=== PATIENT | male | born 1975 | race Caucasian/White ===

== ENCOUNTER → 2018-06-27 10:50 | Outpatient (CLI) | payer OTHER, SELFPAY ==
[2018-06-27 11:39] LABS: Cholesterol 117 mg/dL (200); Glucose 83 mg/dL (74-106); High Density Lipoprotein 44 mg/dL; Triglycerides 43 mg/dL; Very Low Density Lipoprotein 9 mg/dL (5-40)
== END ==
LOC: LABSPEC 10:51 → MTLAB 14:01
PROVIDERS: Family Provider Family Medicine; PCP Family Medicine; Referring Provider Family Medicine; Visit Provider Family Medicine
DX: Z13.220 Encounter for screening for lipoid disorders (principal)
CPT/HCPCS: 36415; 80061; 82947

== ENCOUNTER 2019-09-16 00:01 | Observation (INO) | payer OTHER, SELFPAY ==
[2019-09-16] VITALS (12 sets, daily range): BP systolic 109–161; BP diastolic 72–88; PULSE 65–124; RESP 12–17; TEMP 36.3–36.7; O2SAT 95–100; BMI 26.1; BMI 27.1
--- NOTE | 2019-09-16 00:21 | RAD_ITS ---
STUDY: X-RAY CHEST REASON FOR EXAM: Male, 44 years old. PALPITATIONS -- HX OF AFIB -- DENIES CP TECHNIQUE: Single AP portable view of the chest. COMPARISON: None. FINDINGS: The lungs are clear and expanded. There is no demonstrated pleural abnormality. Normal size heart. Normal mediastinum and erika. Normal visualized pulmonary arteries. Normal visualized aortic arch and descending thoracic aorta. Normal visualized thoracic spine. Normal visualized ribs, clavicles, and shoulders. There is no demonstrated abnormality of the visualized soft tissue structures of the upper abdomen. RAD/Chest 1 View (Portable) IMPRESSION: Normal x-ray examination of the chest. Electronically Signed: Nicki Blakely, at 1:05 EST Tel , Service support ,
--- NOTE | 2019-09-16 00:21 | EKG12_ITS ---
Test Reason : CP Blood Pressure : / mmHG Vent. Rate : 133 BPM Atrial Rate : 153 BPM P-R Int : 000 ms QRS Dur : 098 ms QT Int : 310 ms P-R-T Axes : 000 042 -15 degrees QTc Int : 461 ms Atrial fibrillation with rapid ventricular response Nonspecific ST and T wave abnormality Abnormal ECG Confirmed by JO ANN DE JESUS ([id number]), associate editor [employer]BAN CREWS ([id number]) on 09/18/2019 9:28:38 AM Referred By: OC Confirmed By:JO ANN DE JESUS
[2019-09-16 00:37] LABS: Absolute Lymphocyte Count 2.68 X10^3/uL (0.83-4.51); Absolute Neutrophil Count 3.7 X10^3/uL (2.0-7.7); Basophil# 0.05 X10^3/uL; Basophil% 0.7 % (0-1); Eosinophils% 1.4 % (0-5); Hematocrit 45.4 % (40-54); Lymphocyte # 2.68 X10^3/ul (4.0); Lymphocyte % 36.5 % (19-41); Mean Corp Hgb Conc 35.2 g/dL (32-36); Mean Corpuscular Hgb 31.9 pg (27.0-32.0); Mean Corpuscular Volume 90.6 fL (80-94); Mean Platelet Vol. 9.7 fl (6.2-12.0); Monocyte# 0.75 X10^3/uL; Monocyte% 10.2 % (0-10); NRBC Flagged by Analyzer 0 % (0-5); Neutrophil % 50.4 % (47-70); Platelet Count 215 K/mm3 (150-450); RBC Distribution Width CV 12.5 % (11.6-14.6); RBC Distribution Width SD 40.5 fl (35.1-43.9); Red Blood Count 5.01 M/mm3 (4.6-6.2); White Blood Count 7.3 K/mm3 (4.4-11.0)
[2019-09-16 00:44] LABS: Anion Gap 5 (5-15); BUN 18 mg/dL (7-18); BUN/Creat Ratio 12.8 RATIO (10-20); Calcium,Total 8.7 mg/dL (8.5-10.1); Chloride 107 mmol/L (98-107); Creatinine, Serum 1.41 mg/dL (0.70-1.30); EST Glomerular Filtration Rate 58 mL/min (>60); Est Glom Filt Rate - Afr Amer 70 mL/min (>60); Estimated Creatinine Clearance 66.86 ml/min; Glucose 103 mg/dL (74-106); Potassium 3.2 mmol/L (3.5-5.1); Sodium Level 141 mmol/L (136-145)
--- NOTE | 2019-09-16 00:49 | ED.DCSUM_ITS ---
History of Present Illness Chief Complaint: Palpitations Narrative: Patient is a 44-year-old male who presents with chief complaint of atrial fibrillation. He has had this twice previously. He believes he spontaneously converted with the first episode. He did undergo cardioversion with the second episode. He notes this was about 4 to 5 years ago and he is otherwise been doing well. He currently takes Paxil as his only medication for anxiety. He felt himself go into atrial fibrillation with heart racing and palpitations about an hour ago. No chest pain. No shortness of breath. No dizziness or lightheadedness. He is otherwise recently been well and denies any recent illness. Past Medical History - Allergies and Home Meds Allergies/Adverse Reactions: Allergies No Known Allergies Allergy (Verified 09/16/19 00:01) Primary Care Physician: Parveen Feng MD [Primary Care Provider] - Past Medical History: - - Anxiety, atrial fibrillation Surgical History: noncontributory Smoking Status: Never smoker Review of Systems All systems negative except as indicated General: Denies: Fever Eyes: Denies: Visual changes - bilaterally ENT: Denies: Bilateral ear pain Cardiovascular: Reports: Palpitations, Heart racing. Denies: Chest pain Respiratory: Denies: Dyspnea Gastrointestinal: Denies: Abdominal pain, Vomiting, Diarrhea Musculoskeletal: Denies: Myalgias Skin: Denies: Rash Neurological: Denies: Headache Psych: Reports: Anxiety Hematologic: Denies: Easy bruising Allergy: Denies: Uticaria Physical Exam Vital Signs/Narrative: Vital Signs Temp Pulse Resp BP Pulse Ox 09/16/19 00:21 99 09/16/19 00:03 97.4 F L 124 H 12 161/81 H 100 Inital Vital Signs reviewed: Yes General: Well nourished, Well developed Head: Normocephalic Eyes: EOMI ENT: Moist mucous membranes Neck: Supple Cardiovascular: Irregular, Tachycardia Respiratory: No distress, CTA bilaterally Abdomen: Soft, Nontender Extremities: Nontender, No edema Skin: Normal color Neurological: Alert Psychological: Normal affect Diagnostic/Tx/Re-eval Impressions Chest X-Ray 09/16/19 00:21 IMPRESSION: Normal x-ray examination of the chest. Electronically Signed: Nicki Blakely, at 1:05 EST Tel , Service support , 09/16/19 00:21 Chest 1 View (Portable) [RAD] Stat Laboratory Results 09/16/19 09/16/19 00:08 00:08 WBC 7.3 RBC 5.01 Hgb 16.0 Hct 45.4 MCV 90.6 MCH 31.9 MCHC 35.2 RDW Std Deviation 40.5 RDW Coeff of Harvey 12.5 Plt Count 215 MPV 9.7 Immature Gran % (Auto) 0.800 Neut % (Auto) 50.4 Lymph % (Auto) 36.5 Starr % (Auto) 10.2 H Eos % (Auto) 1.4 Baso % (Auto) 0.7 Absolute Neuts (auto) 3.7 Absolute Lymphs (auto) 2.68 Nucleated RBC % 0 Sodium 141 Potassium 3.2 L Chloride 107 Carbon Dioxide 29.0 Anion Gap 5 BUN 18 Creatinine 1.41 H Estim Creat Clear Calc 66.86 Est GFR (MDRD) Af Amer 70 Est GFR (MDRD) Non-Af 58 L BUN/Creatinine Ratio 12.8 Glucose 103 Calcium 8.7 Troponin I < 0.015 - Medical Decision Making EKG shows atrial fibrillation with RVR at a rate of 133, no acute ischemic changes. Laboratory studies as above unremarkable. Chest x-ray normal. Patient was given 5 mg of IV metoprolol and is rate controlled on reevaluation. Patient's chads 2 vascular score is 0. Therefore I deferred on anticoagulation. Given that the patient is young and otherwise healthy I believe cardioversion should be considered. However given that the patient is not anticoagulated would likely need an echo before this could be performed. Therefore patient will be discussed with the hospitalist and admitted. ED Disposition - Plan for ED Patient: Disposition: Acute Care Hospital [facility] Diagnosis: Atrial fibrillation with RVR Referrals: Parveen Feng MD [Primary Care Provider] -
[2019-09-16] MEDS: Metoprolol Tartrate 5 MG/5 ML Vial IV (01:10)
--- NOTE | 2019-09-16 01:25 | HP.PCM_ITS ---
Problem List (1) Atrial fibrillation with RVR Status: Acute (2) Paroxysmal a-fib Status: Chronic (3) Anxiety Status: Chronic History of Present Illness Date of Admission: 09/16/19 Chief Complaint: Palpitations The patient is a 44 year old M with a significant history of anxiety disorder; and paroxysmal A. fib who presents emergency department with palpitation that started about 2 hours before presentation. His symptoms started just after he woke up from bed. He denies any associated symptoms. At emergency department patient was found to be in A. fib with RVR with a ventricular rate in the 130s. He received 5 mg of metoprolol IV that made his ventricular rate controlled. Emergent department doctor reported discussed the case with cardiology who recommended that cardiology service can be consulted inpatient. Four to 5 years ago years ago patient was cardioverted for atrial fibrillation. About a year or two prior to cardioversion he had another episode of 'A. fib' for which he thinks he simultaneously converted to sinus rhythm. Past Medical History Past Medical History (Chronic Problems): Chronic Problems Paroxysmal a-fib (Chronic) Anxiety (Chronic) Allergies No Known Allergies Allergy (Verified 09/16/19 00:01) Home Medications: Ambulatory Orders Medication Instructions Recorded Paroxetine HCl [Paxil] 10 mg PO DAILY 09/16/19 Surgical History: appendectomy Psychiatric History: Anxiety Lives: Spouse/ Significant Other Smoking Status: Never smoker Alcohol: None - *Family History Maternal History Items: Diabetes, Heart Disease - His mother had triple CABG Paternal History Items: Heart Disease - His father had a heart attack Review of Systems Constitutional: Denies: Chills, Fever, Weight Change HEENT: Denies: Head Aches, Sinus Congestion, Sinus Drainage Cardiovascular: Reports: Palpitations. Denies: Chest Pain Respiratory: Denies: Cough, Shortness of breath at rest, Sputum production Gastrointestinal: Denies: Abdominal Pain, Nausea, Vomiting Genitourinary: Denies: Dysuria Musculoskeletal: Denies: Joint Pain, Joint Tenderness Skin: Denies: Rash, Wounds Neurological: Denies: Numbness, Tingling, Focal weakness Psychiatric: Reports: Anxiety. Denies: Depression, Homicidal Ideations, Suicidal Ideations Hematologic/ Lymphatic: Denies: Easy Bruising, Easy Bleeding VTE Information - Inpt Only VTE Present on Admission: No VTE Mechan Device Prophylaxis: SCD's VTE Pharm Prophylaxis ordered?: No Patient Problems: Active and Suspected Problems Atrial fibrillation with RVR (Acute) - Physical Exam Vitals/I&O's: Vital Signs Temp Pulse Resp BP Pulse Ox 97.4 F L 65 12 125/88 H 99 09/16/19 00:03 09/16/19 01:22 09/16/19 01:22 09/16/19 01:22 09/16/19 01:22 Oxygen Delivery Method Room Air Weight: 80.3 kg Body Mass Index (BMI) 26.1 General: Alert, Oriented x3, Cooperative HEENT: Atraumatic, PERRLA, EOMI, Normocephalic Neck: Supple, No JVD, Negative Carotid Bruits Lungs: Clear to auscultation, Normal air movement Cardiovascular: Normal S1, Normal S2, No murmurs, Irregular Rate Abdomen: Bowel Sounds Present, Soft, Non Tender Extremities: No edema, Capillary Refill Less than 3 Seconds Skin: No rashes, No breakdown Musculoskeletal: No Tenderness to Palpation of Joints or Extremities Neurological: Cranial nerves II-XII grossly intact Psych/Mental Status: Normal Affect, Appropriate Laboratory Results 09/16/19 00:08: WBC 7.3, RBC 5.01, Hgb 16.0, Hct 45.4, MCV 90.6, MCH 31.9, MCHC 35.2, RDW Std Deviation 40.5, RDW Coeff of Harvey 12.5, Plt Count 215, MPV 9.7, Immature Gran % (Auto) 0.800, Neut % (Auto) 50.4, Lymph % (Auto) 36.5, Stevens % (Auto) 10.2 H, Eos % (Auto) 1.4, Baso % (Auto) 0.7, Absolute Neuts (auto) 3.7, Absolute Lymphs (auto) 2.68, Nucleated RBC % 0 09/16/19 00:08: Sodium 141, Potassium 3.2 L, Chloride 107, Carbon Dioxide 29.0, Anion Gap 5, BUN 18, Creatinine 1.41 H, Estim Creat Clear Calc 66.86, Est GFR (MDRD) Af Amer 70, Est GFR (MDRD) Non-Af 58 L, BUN/Creatinine Ratio 12.8, Glucose 103, Calcium 8.7, Troponin I < 0.015 Assessment/Plan All Active Problems Atrial fibrillation with RVR (Acute) The patient is a 44 year old M with a significant history of anxiety disorder; a nd paroxysmal A. fib who presents emergency department with palpitation that started about 2 hours before presentation and found to be A. fib with RVR. A. fib with RVR Place on PCU on telemetry Initial troponin was negative. Serial cardiac enzymes [id number] = 0; no anticoagulation given. Metoprolol 5 mg IV every 1 hour as needed for heart rate more than 110 ordered. Patient found to have potassium 3.1 at the emergency department. Discussed emergent department doctor replace potassium and check magnesium. TSH ordered. Give additional potassium. Trend BMP. Impression of chest x-ray: No acute cardiopulmonary process. Chest x-ray was independently reviewed. I agree with radiology interpretation. Keep n.p.o. Consult [facility] Review of old records show that his creatinine on 07/11/2012 was 1.1. Creatinine on admission was 1.41 However patient appears muscular and this could be from appropriate muscle mass. In any case will hydrate and trend BMP. Avoid nephrotoxics Hypokalemia Potassium on admit was 3.2 Management as above Anxiety disorder Paxil continued DVT Prophylaxis SCD Code Visit OBSV E&M: 38747 Initial observation care L3
[2019-09-16 01:52] LABS: Magnesium 2.2 mg/dL (1.6-2.6)
[2019-09-16] MEDS: 0.9% Normal Saline 1,000 ML 100 ML IV (03:27)
[2019-09-16 03:28] LABS: Thyroid Stim Hormone (TSH) 2.66 uIU/mL (0.358-3.74)
[2019-09-16] MEDS: 0.9% Saline Lock 10 ML Syringe IV (03:28)
[2019-09-16] MEDS: Potassium Chloride 10mEq/100mL 10 MEQ/100 ML IV.SOLN. 100 MEQ IV BOLUS ×2 (03:35→04:32)
--- NOTE | 2019-09-16 07:29 | ECHOD_ITS ---
Reason For Study: Afib, Aflutter Procedure This was a 2D Doppler, Color Flow transthoracic echocardiogram. Exam performed in department. Left Ventricle Normal size and thickness. The estimated ejection fraction is 65 %. Unable to assess diastolic dysfunction due to arrhythmia. No regional wall motion abnormalities noted. Right Ventricle Normal size and thickness. A moderator band is seen in the right ventricle. Normal systolic function. Atria Normal left atrium. Normal right atrium. Normal atrial septum. Mitral Valve The mitral valve is structurally normal. No prolapse or stenosis seen. Trivial mitral valve insufficiency. Tricuspid Valve Normal tricuspid valve. Trivial tricuspid valve insufficiency. Right ventricular systolic pressure estimated to be 34 mmHg. Aortic Valve Normal aortic valve. Trisinus/trileaflet aortic valve. Pulmonic Valve Normal pulmonic valve. Great Vessels Normal aortic root. Normal arch. Normal inferior vena cava. Inferior vena cava collapse with sniff. Pericardium/Pleural No pericardial effusion. MMode/2D Measurements & Calculations LVIDd: 4.4 cm IVSd: 1.1 cm Ao root diam: 2.9 cm LVIDs: 3.0 cm LVPWd: 0.90 cm RVDd: 3.6 cm FS: 32.2 % LAV(MOD-bp): 42.5 ml LVAd ap4: 23.5 cm2 SV(MOD-sp4): 35.7 ml LAV(MOD-bp) Indexed: 21.4 ml/m2 EDV(MOD-sp4): 58.7 ml LAV(MOD-sp2): 41.8 ml EDV(sp4-el): 60.8 ml LAV(MOD-sp4): 38.4 ml LVAs ap4: 13.0 cm2 ESV(MOD-sp4): 23.0 ml ESV(sp4-el): 21.8 ml EF(MOD-sp4): 60.8 % EF(sp4-el): 64.2 % SV(sp4-el): 39.0 ml LA A4 area: 15.9 cm2 LA dimension(2D): 3.9 cm RA A4 area: 14.9 cm2 Doppler Measurements & Calculations MV E max ani: 67.7 cm/sec Ao V2 max: 106.4 cm/sec LV V1 max: 91.3 cm/sec Ao max P.6 mmHg LV V1 max P.4 mmHg Ao V2 mean: 78.5 cm/sec Ao mean P.7 mmHg Ao V2 VTI: 18.7 cm PA V2 max: 80.0 cm/sec TR max ani: 218.4 cm/sec TR max P.1 mmHg Interpretation Summary The estimated ejection fraction is 65 %. Unable to assess diastolic dysfunction due to arrhythmia. Trivial mitral valve insufficiency. Trivial tricuspid valve insufficiency. Right ventricular systolic pressure estimated to be 34 mmHg. There is no comparison study available. Ordering Physician: Marcos Lala Referring Physician: Parveen Feng Performed By: Suzanne Bah, LUISA, RVT
--- NOTE | 2019-09-16 07:29 | STE_ITS ---
Reason For Study: atrial fib/flutter, palpitations Stress Results Protocol: Rito Protocol Maximum Predicted HR: 176 bpm Target HR: 150 bpm % Maximum Predicted HR: 126 % DurationHeart Rate Stage (mm:ss) (bpm) BP Comment baseline 101 128/78 stage 1 3:00 162 140/80 stage 2 3:00 190 142/82 stage 3 3:00 179 142/84 stage 4 3:00 222 138/80pt denies chest pain recovery 136 110/70pt denies chest pain Stress Duration: 12:00 mm:ss Maximum Stress HR: 222 bpm Baseline Echocardiogram Findings The estimated ejection fraction is 65 %. Stress Echo Wall motion Data Resting WM Intermediate WM Stress WM Resting Wall Motion Wall Motion Stress No regional wall motion No regional wall motion abnormalities noted. abnormalities noted. EKG Data Atrial fibrillation with controlled ventricular response. The patient exercised according to the regular Rito protocol for a total duration of 12:00. The maximum heart rate attained was 235 beats per minute. This was 133% of maximum predicted heart rate. The patient exercised into stage 5 of the Rito protocol. At peak exercise, upsloping ST changes only were noted, which did not meet the criteria for ischemia. No clinical angina was noted. Interpretation Summary The estimated ejection fraction is 65 %. Normal, adequate, treadmill echocardiogram. Negative for ischemia by EKG and echocardiographic criteria. No anginal symptoms noted. Average exercise capacity for age. Baseline atrial fibrillation which persisted during entire exercise test. Rare PVCs noted. Appropriate blood pressure response to exercise. Final LVEF is 75%. Test terminated the attainment target heart rate. Patient tolerated procedure well. No complications. Ordering Physician: Louis Castro MD Performed By: Suzanne Bah, LUISA, RVT
--- NOTE | 2019-09-16 08:47 | ECHOTEE_ITS ---
Reason For Study: Afib, Aflutter Medication STEVEN probe 6VT-D (SN [id number]) passed without difficulty. No complications were noted. [id number] gargled and swallowed. Cetacaine Topical Jacob given X2 orally. Fentanyl 50 mcg given slow IVP. Versed 2 mg given slow IVP. Performed a rapid injection of agitated mix of 9 cc saline and 1cc air to assess for atrial septal defect. Left Ventricle Normal size and thickness. The estimated ejection fraction is 65 %. Right Ventricle Normal size and thickness. Normal systolic function. Atria Normal atrial septum. Bubble contrast study negative for right to left interatrial shunt. The left atrium is mildly enlarged. No thrombus is detected in the left atrial appendage. Normal right atrium. Mitral Valve The mitral valve is structurally normal. No prolapse or stenosis seen. Trivial mitral valve insufficiency. Tricuspid Valve Normal tricuspid valve. Trivial tricuspid valve insufficiency. Right ventricular systolic pressure estimated to be 33 mmHg. Aortic Valve Normal aortic valve. Trisinus/trileaflet aortic valve. Pulmonic Valve Normal pulmonic valve. Vessels Normal aortic root. Normal arch. The pulmonary artery is normal size. Pulmonary venous flow normal. Pericardium No pericardial effusion. Interpretation Summary The estimated ejection fraction is 65 %. Bubble contrast study negative for right to left interatrial shunt. The left atrium is mildly enlarged. No thrombus is detected in the left atrial appendage. Trivial mitral valve insufficiency. Trivial tricuspid valve insufficiency. Right ventricular systolic pressure estimated to be 33 mmHg. Patient appears to be in atrial fibrillation. Ordering Physician: Louis Castro Referring Physician: Parveen Feng Performed By: Suzanne Bah, LUISA, RVT
[2019-09-16] MEDS: Enoxaparin 100 MG/ML Syringe 85 MG SC (08:50)
--- NOTE | 2019-09-16 08:55 | PCM.CONS.C ---
Problem List (1) Atrial fibrillation with RVR Status: Acute (2) Paroxysmal a-fib Status: Chronic Reason for Consult Date of Consultation: 09/16/19 Reason for Consultation: Atrial fibrillation History of Present Illness: The patient is a 44 year old M, Nondiabetic, non-smoker, nondrinker, currently on no medications, no previous coronary artery disease or myocardial infarction. The patient does have a history of atrial fibrillation, his last atrial fibrillation was approximately 5 years ago requiring DC cardioversion with Dr. Mac.He is on no maintenance beta-nely, calcium channel nely or antiarrhythmics. He has never had an ablation. At approximately 12 AM on 09/16/2019 the patient was awoken from a sound sleep with new onsetRapid heart rate. Patient was aware that he may have popped back into atrial fibrillation and sought medical attention at [facility]. His EKG showed atrial fibrillation with rapid ventricular response, and appeared to improve with 3 doses of IV metoprolol.His potassium was found to be 3.2, and it was replaced with 60 mEq of p.o. potassium.Patient was not started on any anticoagulation. Overnight the patient's troponins were negative, and he remained in atrial fibrillation.He underwent a 2D echo with Doppler with preliminary results showing normal LV function, and an RVSP of approximately 33 mmHg.Final result pending. In addition he underwent a treadmill echocardiogram with a good workload, and no evidence of ischemia with final results pending. Patient was given subcu Lovenox in the echo lab after his stress test was completed as well as Cardizem's 10 Milligrams IV followed by Cardizem CD 120 mg p.o. x1.There is recommend the patient undergo a STEVEN evaluation to ensure that he has no thrombus in his left atrial appendage and if it was negative would proceed to DC cardioversion. Currently the patient is resting well, no acute distress. He states that he had a sleep Sleep study many years ago, which was reportedly negative.He reports that he does not snore, wakes up well rested, but occasionally gets tired during the day to the point where he could take a nap. Past Medical History Allergies/Adverse Reactions: Allergies No Known Allergies Allergy (Verified 09/16/19 00:01) Home Medications: Ambulatory Orders Medication Instructions Recorded Paroxetine HCl [Paxil] 10 mg PO DAILY 09/16/19 Past Medical History (Chronic Problems): Chronic Problems Paroxysmal a-fib (Chronic) Anxiety (Chronic) Surgical History: appendectomy Psychiatric History: Anxiety - *Family History Maternal History Items: Diabetes, Heart Disease - His mother had triple CABG Paternal History Items: Heart Disease - His father had a heart attack Lives: Spouse/ Significant Other Smoking Status: Never smoker Alcohol: None Review of Systems - Review of Systems General: Denies: Fever, Night Sweats, Fatigue Cardiovascular: Reports: Palpitations. Denies: Chest Discomfort, Shortness of Breath, Orthopnea, PND, Peripheral Edema, Lightheadedness, Dizziness, Near Syncope, Syncope Respiratory: Denies: Cough, Sputum Production, Hemoptysis Gastrointestinal: Denies: Hematemesis, Hematochezia, Melena Genitourinary: Denies: Dysuria, Hematuria Skin: Denies: Rash Subjectve: Patient resting comfortably, no acute distress. Objective: Vital Signs Temp Pulse Resp BP Pulse Ox 98.0 F 95 14 109/72 97 09/16/19 08:00 09/16/19 08:00 09/16/19 08:00 09/16/19 08:00 09/16/19 08:00 Oxygen Delivery Method Room Air Weight: 183 lb 8 oz Body Mass Index (BMI) 27.1 Intake and Output for Last 24 Hours 09/14/19 09/15/19 09/16/19 23:59 23:59 23:59 Intake Total 731.67 / 731.67 Balance 731.67 / 731.67 General: Awake, Alert, Oriented x 3 HEENT: PERRL, EOMI, Sclera Non Icteric Neck: Supple, Good ROM, No Lymph Node Enlargement Lungs: Clear to auscultation Cardiovascular: Irregular Rhythm, Normal S1, Normal S2, No Murmurs, No Rubs, No Gallops Vascular: No Carotid Bruits, Normal Femoral Pulses, Normal Radial Pulses, Normal Dorsalis Pedal Pulse, Normal Posterior Tibial Pulses Abdomen: Bowel Sounds Present, Soft, Non Tender, No HSM, No Organomegaly Extremities: No Cyanosis, No Clubbing, No edema Neurological: No Focal Motor or Sensory Deficit 09/16/19 00:08: WBC 7.3, RBC 5.01, Hgb 16.0, Hct 45.4, MCV 90.6, MCH 31.9, MCHC 35.2, Plt Count 215, MPV 9.7, Immature Gran % (Auto) 0.800, Neut % (Auto) 50.4, Lymph % (Auto) 36.5, Ware % (Auto) 10.2 H, Eos % (Auto) 1.4, Baso % (Auto) 0.7, Absolute Neuts (auto) 3.7, Nucleated RBC % 0 09/16/19 00:08: Sodium 141, Potassium 3.2 L, Chloride 107, Carbon Dioxide 29.0, Anion Gap 5, BUN 18, Creatinine 1.41 H, Est GFR (MDRD) Af Amer 70, Est GFR (MDRD) Non-Af 58 L, BUN/Creatinine Ratio 12.8, Glucose 103, Calcium 8.7, Troponin I < 0.015 09/16/19 00:08: Magnesium 2.2 09/16/19 03:48: Troponin I < 0.015 09/16/19 06:00: Troponin I < 0.015 Rhythm: EKG: ECHO: Stress Test: Cardiac Cath: PCI: CT Surgery: Holter monitor: EPS: PPM: CXR: Chest CT Scan: Assessment/Plan 1. Atrial fibrillation: The patient has paroxysmal intermittent atrial fibrillation, and appears to be aware when he goes in and out of atrial fibrillation. He does not appear to have any precipitating factors and denies any tobacco use, alcohol, diabetes, [id number] herbal medications, or long traveling distances. He is ruled out for myocardial infarction, and his echocardiogram shows intact LV function. His stress echocardiogram preliminarily was negative for inducible ischemia with final results pending. I recommended the patient receive a full dose Lovenox shot, followed by transesophageal echocardiogram to evaluate for left atrial appendage thrombus. If his STEVEN is negative, would recommend he proceed with elective DC cardioversion in an attempt to revert him back to normal sinus rhythm. In addition I recommend that he be given Cardizem IV 10 mg x 1 now for heart rate control followed by Cardizem CD 120 mg p.o. daily.The patient may require flecainide assistance if he reverts back toAtrial fibrillation after his cardioversion or if his cardioversion is unsuccessful.If his cardioversion is unsuccessful he will require anticoagulation therapy In the form of Coumadin for least 4 weeks, or Eliquis for 3 weeks prior to repeat cardioversion. In addition I recommend the patient undergo an outpatient sleep study to determine if he has progressed to obstructive sleep apnea which may be contributing to his paroxysmal atrial fibrillation. His TSH is normal. 2. Thank you very much for the opportunity to participate in the cardiac care of your patient. Consultation time took place between 8 AM and 9 AM. Code Visit Inpatient E&M: 65794 Init Hosp L2
[2019-09-16] MEDS: dilTIAZem 25 MG/5 ML Vial 10 MG IV BOLUS (09:04)
[2019-09-16] MEDS: dilTIAZem CD 120 MG Capsule PO (09:13)
--- NOTE | 2019-09-16 10:10 | EKG12_ITS ---
Test Reason : DCCV Blood Pressure : / mmHG Vent. Rate : 081 BPM Atrial Rate : 081 BPM P-R Int : 154 ms QRS Dur : 094 ms QT Int : 354 ms P-R-T Axes : 047 024 020 degrees QTc Int : 411 ms Normal sinus rhythm Normal ECG When compared with ECG of 16-SEP-2019 00:02, MANUAL COMPARISON REQUIRED, DATA IS UNCONFIRMED Confirmed by JO ANN DE JESUS ([id number]), editorial writer [employer]WS ([id number]) on 09/18/2019 9:58:46 AM Referred By: DR DE JESUS Confirmed By:JO ANN DE JESUS
--- NOTE | 2019-09-16 11:03 | DCINST_ITS ---
- Discharge Diagnoses Current Active Problems: Current Active and Chronic Problems Atrial fibrillation with RVR (Acute) You will use the following diet at home:: Regular Your food should be the consistency of: Regular Discharge Activity: Return to Normal Activity Weight Bearing Status: Full weight bearing Call your doctor if you observe: Fever of 101 or Higher, Shortness of breath, Dizziness, Fainting spells, Chest pain, Increased palpitations (irregular heartbeat), Uncontrolled pain Instructions: Atrial Fibrillation, Cardioversion Allergies/Adverse Reactions: Allergies No Known Allergies Allergy (Verified 09/16/19 00:01) Medications to take at Discharge Diltiazem CD [Cardizem CD] 120 mg PO DAILY #30 cap 09/16/19 Paroxetine HCl [Paxil] 10 mg PO DAILY 09/16/19 The following prescriptions were given: Diltiazem CD [Cardizem CD] 120 mg PO DAILY #30 cap Transmission Status: Pending to [facility] Primary Care Physician: Parveen Feng MD [Primary Care Provider] - Please follow up with your Primary Care Physician in: 1 weeks. Test Results: Test results from this visit will be discussed in further detail at your follow- up appointment, if applicable. Please Follow Up With: Louis Castro MD When: 2-3 weeks.
--- NOTE | 2019-09-16 11:04 | CARDIOVERS ---
Cardioversion Cardioversion: Cardioversion summary: Patient underwent a transesophageal echocardiogram immediately prior to his DC cardioversion for new onset atrial fibrillation. His STEVEN demonstrated no evidence of left atrial appendage thrombus. The patient was given a single dose of subcu Lovenox immediately after his stress test, and underwent DC cardioversion approximately 2 hours later. In addition he underwent in addition, he received Cardizem 10 mg IV x1 followed by Cardizem CD 120 mg p.o. x1. Patient was brought to the cardiac catheterization holding room, the risk/benefits of the procedure were thoroughly explained to the patient and informed consent was obtained. The defibrillator pads were placed in the AP position. With the assistance of Dr. Rito Lynn the patient received a single injection of 40 mg of IV propofol. Once adequate sedation was obtained the patient received a single 200 J biphasic synchronized shock which converted him from atrial fibrillation to normal sinus rhythm.His normal sinus rhythm was documented and remain durable and a defibrillator pads removed. After several minutes, the patient spontaneously awoke, move all 4 extremities and tolerated the procedure well. Conclusions: Successful Cardizem and Lovenox assisted DC cardioversion after STEVEN demonstrated no evidence of left atrial appendage thrombus. Patient will continue Cardizem CD 120 mg p.o. daily, and be discharged home with follow-up with Dr. Castro. If his atrial fibrillation returns, the patient may benefit from flecainide assistance to maintain normal sinus rhythm. No complications. Many thanks to Dr. Rito Lynn for his assistance.
--- NOTE | 2019-09-16 11:45 | PHA.DC.MC ---
Pharmacy Service has performed discharge medication reconciliation and counseling for this patient. 1. DILTIAZEM CD 120MG PO DAILY The patient's discharge medication list was reviewed for discrepancies and discrepancies were resolved. Home Medications Diltiazem CD [Cardizem CD] 120 mg PO DAILY #30 cap 09/16/19 Paroxetine HCl [Paxil] 10 mg PO DAILY 09/16/19 The patient was counseled on the following discharge medications and changes in medications for homegoing were reviewed. The Reason for Use, instructions for use, and potential side effects were reviewed for all new medications. The patient's questions regarding all of their medications were answered. The patient was able to verbally demonstrate an understanding of their discharge medications.
--- NOTE | 2019-09-16 12:08 | PCM.DC.SUM ---
Discharge Date and Diagnosis Date of Admission: 09/16/19 Date of Discharge: 09/16/19 - Primary Discharge Diagnosis Active and Suspected Problems Atrial fibrillation with RVR, status post cardioversion, resulted with normal sinus rhythm. - Secondary Discharge Diagnosis Chronic Problems Paroxysmal a-fib (Chronic) Anxiety (Chronic) Hospital Course and Treatment Imaging Results: 09/16/19 07:29 Echo Complete [ECHO] Routine Stress Test Echo w/o Contrast [ECHO] Routine 09/16/19 08:47 Echo Transesophageal (STEVEN) [ECHO] Routine Clinical Impression(s) from Imaging Studies Chest X-Ray 09/16/19 00:21 IMPRESSION: Normal x-ray examination of the chest. Electronically Signed: Nicki Blakely, at 1:05 EST Tel , Service support , Dr. Castro, cardiology. Procedures: Cardioversion, Transesophageal Echo Summary of Care Provided: The patient is a 44 year old M patient presented to the emergency room because of palpitation and he was found to have A. fib with RVR in the setting of history of paroxysmal atrial fibrillation. Patient was given IV metoprolol 5 mg x 1 in the ED and his heart rate slowed down. His routine blood work was remarkable for potassium of 3.2 which was replaced and corrected. His creatinine was 1.41 attributed to dehydration for which she received IV fluids. Serum magnesium was normal. TSH was normal. Troponin was negative. Chest x-ray showed no acute findings. Cardiology consulted and recommended to start patient on therapeutic Lovenox twice daily and recommended STEVEN with cardioversion. Patient underwent transesophageal echocardiogram that revealed no evidence of left atrial appendage thrombus and he underwent DC cardioversion which resulted in normal sinus rhythm with controlled heart rate. Patient was started on Cardizem CD 120 mg p.o. daily. Patient did well and remained sinus rhythm. His vital signs are stable, blood pressure stable. Patient discharged home in a stable medical condition, discharged on Cardizem CD 120 mg p.o. daily, there was no indication for anticoagulation, plan to follow-up with PCP in 1 week and follow-up with cardiology in 2 to 3 weeks. - Physical Exam Vitals/I&O's: Vital Signs Temp Pulse Resp BP Pulse Ox 97.7 F L 80 14 116/87 H 96 09/16/19 11:49 09/16/19 11:49 09/16/19 11:49 09/16/19 11:49 09/16/19 11:49 Oxygen Delivery Method Room Air Weight: 183 lb 8 oz Body Mass Index (BMI) 27.1 Intake and Output for Last 24 Hours 09/14/19 09/15/19 09/16/19 23:59 23:59 23:59 Intake Total 731.67 / 731.67 Balance 731.67 / 731.67 General: Alert, Oriented x3, Cooperative, No apparent distress HEENT: Atraumatic, PERRLA, EOMI, Normocephalic Oral: Moist Mucosa, No Gingival or Mucosal Lesions/ Ulcerations Neck: Supple, No JVD, Negative Carotid Bruits, Trachea Midline, Thyroid Normal Size and Texture Lungs: Clear to auscultation, Normal air movement, No rhonchi, No wheeze, No rales Cardiovascular: Regular rate, Regular Rhythm, Normal S1, Normal S2, PMI Normal Abdomen: Bowel Sounds Present, Soft, Non Tender, Non-Distended, No Hepato-splenomegaly Extremities: No clubbing, No cyanosis, No edema Skin: No rashes, No breakdown Lymphatic: No Cervical, Supraclavicular, or Inguinal Adenopathy Neurological: Cranial nerves II-XII grossly intact, Motor Exam 5/5 strength throughout Psych/Mental Status: Normal Affect, Appropriate Laboratory Results 09/16/19 00:08: WBC 7.3, RBC 5.01, Hgb 16.0, Hct 45.4, MCV 90.6, MCH 31.9, MCHC 35.2, RDW Std Deviation 40.5, RDW Coeff of Harvey 12.5, Plt Count 215, MPV 9.7, Immature Gran % (Auto) 0.800, Neut % (Auto) 50.4, Lymph % (Auto) 36.5, [place] % (Auto) 10.2 H, Eos % (Auto) 1.4, Baso % (Auto) 0.7, Absolute Neuts (auto) 3.7, Absolute Lymphs (auto) 2.68, Nucleated RBC % 0 09/16/19 00:08: Sodium 141, Potassium 3.2 L, Chloride 107, Carbon Dioxide 29.0, Anion Gap 5, BUN 18, Creatinine 1.41 H, Estim Creat Clear Calc 66.86, Est GFR (MDRD) Af Amer 70, Est GFR (MDRD) Non-Af 58 L, BUN/Creatinine Ratio 12.8, Glucose 103, Calcium 8.7, Troponin I < 0.015 09/16/19 00:08: Magnesium 2.2 09/16/19 00:08: TSH 2.66 09/16/19 03:48: Troponin I < 0.015 09/16/19 06:00: Troponin I < 0.015 Current Medications Acetaminophen (Tylenol) 650 mg PO Q6H PRN PRN PRN Reason: Pain Score 1-10/Temp > 100.7 F Diltiazem HCl (Cardizem Cd) 120 mg PO DAILY [facility] Last Admin: 09/16/19 09:13 Dose: 120 mg Documented by: Enoxaparin Sodium (Lovenox) 85 mg SC Q12 [facility] Last Admin: 09/16/19 08:50 Dose: 85 mg Documented by: Glucagon () 1 mg IM .X1 PRN PRN Reason: Hypoglycemia Sodium Chloride () 1,000 mls @ 100 mls/hr IV .Q10H [facility] Last Infusion: 09/16/19 11:31 Dose: Infused Documented by: Sodium Chloride () 250 mls @ 15 mls/hr IV .[id number] PRN PRN Reason: Saline Flush Sodium Chloride () 250 mls @ 15 mls/hr IV .[id number] PRN PRN Reason: Additional IVPB Infusion Dextrose (Dextrose 10%-Water) 250 mls @ 999 mls/hr IV .Q16M PRN; Protocol PRN Reason: HYPOGLYCEMIA Melatonin (Melatonin) 3 mg PO QHS PRN PRN PRN Reason: INSOMNIA Metoprolol Tartrate (Lopressor (Beta Alfonso)) 5 mg IV Q1H PRN PRN PRN Reason: HR > 110 Ondansetron HCl (Zofran) 4 mg IV Q8H PRN PRN PRN Reason: NAUSEA/VOMITING Paroxetine HCl (Paxil) 10 mg PO DAILY [facility] Last Admin: 09/16/19 10:51 Dose: Not Given Documented by: Sodium Chloride () 10 - 40 ml IV UD PRN PRN Reason: SALINE FLUSH Last Admin: 09/16/19 03:28 Dose: 10 ml Documented by: Discharge Activity: Return to Normal Activity Weight Bearing Status: Full weight bearing Call your doctor if you observe: Fever of 101 or Higher, Shortness of breath, Dizziness, Fainting spells, Chest pain, Increased palpitations (irregular heartbeat), Uncontrolled pain Home Medications: Medications to take at Discharge Diltiazem CD [Cardizem CD] 120 mg PO DAILY #30 cap 09/16/19 Paroxetine HCl [Paxil] 10 mg PO DAILY 09/16/19 Following Prescrptions Were Given to Patient: Diltiazem CD [Cardizem CD] 120 mg PO DAILY #30 cap Transmission Status: Received by [facility] [facility] Primary Care Physician: Parveen Feng MD [Primary Care Provider] - Please follow up with your Primary Care Physician in: 1 weeks. Please Follow Up With: Louis Castro MD When: 2-3 weeks. Patient Instructions: Cardioversion, Atrial Fibrillation Disposition: Home Minutes spent on discharge:: 27 Patient Condition:: Stable Medical Necessity - Tobacco Use Smoking Status: Never smoker Meaningful Use Info Meaningful Use Diagnoses (Choose all that apply): None applicable Code Visit OBSV E&M: 84355 Observation care discharge
--- NOTE | 2019-09-16 13:31 | PCM.OP.PRO ---
Problem List (1) Atrial fibrillation with RVR Status: Acute (2) Anxiety Status: Chronic (3) History of cardioversion Status: Chronic (4) Paroxysmal a-fib Status: Chronic (5) S/P transesophageal echocardiogram (STEVEN) Status: Chronic Procedure Report Date of Procedure: 09/16/19 - Conscious sedation CONSCIOUS SEDATION REPORT BRIEF HISTORY OF PRESENT ILLNESS: The patient is a 44-year-old male who presented to [facility] for a cardioversion due to underlying atrial fibrillation. The patient reports no PO intake since midnight. The patient does not have a history of obstructive sleep apnea. The patient reports no history of smoking and COPD. The patient denies any recent constitutional symptoms such as fevers, chills, nausea or vomiting. The patient denies previous anesthetic complications. Patient's last known ejection fraction was 65%. Patient did receive Cardizem on the floor prior to the cardioversion PHYSICAL EXAMINATION: VITAL SIGNS: Reviewed and were acceptable. GENERAL: The patient is a male, in no apparent distress, speaking in full sentences. HEENT: Normocephalic, atraumatic. Mucous membranes are moist and pink. Good mouth opening noted. Trachea is midline. Good neck mobility. MP I CHEST: S1, S2 irregularly irregular. No murmurs, rubs or gallops were noted. LUNGS: Clear to auscultation bilaterally without appreciable wheezes, rales or rhonchi. ABDOMEN: Soft, nontender, nondistended. Positive bowel sounds. EXTREMITIES: There is no clubbing, cyanosis or edema. ASA Class: II DESCRIPTION OF PROCEDURE: After confirmation of informed consent, the patient's anesthesia plan was reviewed in detail. Propofol was chosen. Risks and benefits were reviewed and the patient agreed to proceed. At 10 AM, the patient was given 40 mg of propofol. The patient achieved an appropriate level of sedation and received 1 attempt synchronized cardioversion, at [address] Castro at the bedside. This was successful in achieving normal sinus rhythm. The patient was monitored until 10:10 AM, at which time the patient reached their baseline mental status and function. The patient tolerated the procedure well. COMPLICATIONS: None ESTIMATED BLOOD LOSS: None RECOMMENDATIONS: Okay to recover in usual fashion. Code Visit [id number]: Other Procedure See Report - [id number]
== END 2019-09-16 11:04 | disposition home or self-care (01) ==
LOC: ED 01:28 → PCU 02:16
PROVIDERS: Admitting Provider Hospitalist; Emergency Provider Emergency Medicine; PCP Family Medicine; Visit Provider Hospitalist
DX: R00.2 Palpitations (principal); I48.0 Paroxysmal atrial fibrillation; I48.20 Chronic atrial fibrillation, unspecified; Z23 Encounter for immunization; F41.9 Anxiety disorder, unspecified; Z79.899 Other long term (current) drug therapy; E87.6 Hypokalemia; R94.31 Abnormal electrocardiogram [ECG] [EKG]; I08.1 Rheumatic disorders of both mitral and tricuspid valves
CPT/HCPCS: 36415; 71045; 80048; 83735; 84443; 84484; 85025; 92960; 93005; 93017; 93306; 93312; 93320; 93325; 93350; 96361; 96372; 96374; 96375; 96376; 99218; 99285; J7030; J7040; 90686; A4216; G0378

== ENCOUNTER → 2019-10-30 20:19 | Outpatient (CLI) | payer OTHER, SELFPAY ==
[2019-10-06 11:47] VITALS: BMI 27.1
== END ==
PROVIDERS: PCP Family Medicine; Referring Provider Internal Medicine Cardiovascular Disease; Visit Provider Internal Medicine Cardiovascular Disease
DX: G47.10 Hypersomnia, unspecified (principal); I48.91 Unspecified atrial fibrillation
CPT/HCPCS: 95810

== ENCOUNTER → 2019-12-22 08:04 | Outpatient (CLI) | payer OTHER, SELFPAY ==
[2019-12-14 07:36] VITALS: BMI 27.1
== END ==
PROVIDERS: PCP Family Medicine; Visit Provider Nurse Practitioner Acute Care
DX: Z46.89 Encounter for fitting and adjustment of other specified devices (principal)

== ENCOUNTER → 2019-12-24 09:00 | Outpatient (CLI) | payer OTHER, SELFPAY ==
[2019-12-14 07:36] VITALS: BMI 27.1
== END ==
PROVIDERS: PCP Family Medicine; Visit Provider Nurse Practitioner Acute Care
DX: Z46.89 Encounter for fitting and adjustment of other specified devices (principal)

== ENCOUNTER → 2020-10-25 07:29 | Outpatient (CLI) | payer OTHER, SELFPAY ==
[2020-09-22 15:12] VITALS: BMI 26.7
[2020-10-25 10:45] LABS: AST(SGOT) 26 U/L (15-37); Alanine Aminotransfer ALT/SGPT 53 U/L (16-61); Alkaline Phosphatase 62 U/L (45-117); Anion Gap 7 (5-15); BUN 20 mg/dL (7-18); BUN/Creat Ratio 16.9 RATIO (10-20); Bilirubin, Direct 0.25 mg/dL (0.00-0.30); Calcium,Total 8.7 mg/dL (8.5-10.1); Chloride 109 mmol/L (98-107); Cholesterol 152 mg/dL (200); Creatinine, Serum 1.18 mg/dL (0.70-1.30); EST Glomerular Filtration Rate 71 mL/min (>60); Est Glom Filt Rate - Afr Amer 86 mL/min (>60); Globulin 3.1 g/dL (2.2-4.2); Glucose 85 mg/dL (74-106); High Density Lipoprotein 43 mg/dL; Potassium 3.7 mmol/L (3.5-5.1); Protein, Total 7.1 g/dL (6.4-8.2); Sodium Level 141 mmol/L (136-145); T4 Free Direct 0.97 ng/dL (0.76-1.46); Thyroid Stim Hormone (TSH) 1.34 uIU/mL (0.358-3.74); Triglycerides 82 mg/dL; Very Low Density Lipoprotein 16 mg/dL (5-40)
== END ==
PROVIDERS: PCP Family Medicine; Referring Provider Nurse Practitioner Family; Visit Provider Nurse Practitioner Family
DX: I10 Essential (primary) hypertension (principal); I48.0 Paroxysmal atrial fibrillation; G47.33 Obstructive sleep apnea (adult) (pediatric); Z82.49 Family history of ischemic heart disease and other diseases of the circulatory system
CPT/HCPCS: 36415; 80048; 80061; 80076; 83735; 84439; 84443

== ENCOUNTER → 2021-05-26 07:23 | Outpatient (CLI) | payer OTHER, SELFPAY ==
[2021-05-26 10:13] LABS: Anion Gap 6 (5-15); BUN 22 mg/dL (7-18); BUN/Creat Ratio 18.3 RATIO (10-20); Calcium,Total 8.7 mg/dL (8.5-10.1); Chloride 106 mmol/L (98-107); Cholesterol 161 mg/dL (200); EST Glomerular Filtration Rate 69 mL/min (>60); Est Glom Filt Rate - Afr Amer 84 mL/min (>60); Glucose 92 mg/dL (74-106); High Density Lipoprotein 46 mg/dL; Sodium Level 138 mmol/L (136-145); Triglycerides 45 mg/dL; Very Low Density Lipoprotein 9 mg/dL (5-40)
== END ==
PROVIDERS: PCP Family Medicine; Referring Provider Family Medicine; Visit Provider Family Medicine
DX: I10 Essential (primary) hypertension (principal)
CPT/HCPCS: 36415; 80048; 80061

== ENCOUNTER → 2022-05-02 | Outpatient (CLI) | payer OTHER, SELFPAY ==
[2022-05-02 10:44] LABS: Anion Gap 7 (5-15); BUN 20 mg/dL (7-18); BUN/Creat Ratio 16.9 RATIO (10-20); Calcium,Total 8.7 mg/dL (8.5-10.1); Chloride 108 mmol/L (98-107); Cholesterol 164 mg/dL (200); Creatinine, Serum 1.18 mg/dL (0.70-1.30); EST Glomerular Filtration Rate 70 mL/min (>60); Est Glom Filt Rate - Afr Amer 85 mL/min (>60); Glucose 98 mg/dL (74-106); High Density Lipoprotein 32 mg/dL; Potassium 3.9 mmol/L (3.5-5.1); Sodium Level 141 mmol/L (136-145); Triglycerides 265 mg/dL; Very Low Density Lipoprotein 53 mg/dL (5-40)
== END | disposition home or self-care (01) ==
LOC: MTLAB 07:07
PROVIDERS: PCP Family Medicine; Referring Provider Family Medicine; Visit Provider Family Medicine
DX: I10 Essential (primary) hypertension (principal); N52.9 Male erectile dysfunction, unspecified
CPT/HCPCS: 36415; 80048; 80061; 84403

== ENCOUNTER 2022-10-18 09:57 | Day surgery (SDC) | payer OTHER, SELFPAY ==
--- NOTE | 2022-10-05 14:00 | EKG12_ITS ---
Test Reason : PRE OP Blood Pressure : / mmHG Vent. Rate : 078 BPM Atrial Rate : 078 BPM P-R Int : 138 ms QRS Dur : 088 ms QT Int : 348 ms P-R-T Axes : 056 064 017 degrees QTc Int : 396 ms Normal sinus rhythm Normal ECG Confirmed by BETHANY AYALA, ROSALIND ([id number]), editorial cartoonist LUNA BRADSHAW ([id number]) on 10/08/2022 11:28:59 AM Referred By: NICA Confirmed By:ROSALIND SIMS MD
[2022-10-05 14:52] LABS: Hematocrit 44.4 % (40-54); Hemoglobin 15.4 g/dL (13.0-16.5); Mean Corp Hgb Conc 34.7 g/dL (32-36); Mean Corpuscular Hgb 31.4 pg (27.0-32.0); Mean Corpuscular Volume 90.6 fL (80-94); Mean Platelet Vol. 9.9 fl (6.2-12.0); Platelet Count 234 K/mm3 (150-450); RBC Distribution Width CV 12.3 % (11.6-14.6); RBC Distribution Width SD 40.2 fl (35.1-43.9); White Blood Count 6.1 K/mm3 (4.4-11.0)
[2022-10-05 15:27] LABS: Anion Gap 8 (5-15); BUN 28 mg/dL (7-18); BUN/Creat Ratio 20.7 RATIO (10-20); Calcium,Total 9.1 mg/dL (8.5-10.1); Chloride 107 mmol/L (98-107); Creatinine, Serum 1.35 mg/dL (0.70-1.30); EST Glomerular Filtration Rate 60 mL/min (>60); Est Glom Filt Rate - Afr Amer 73 mL/min (>60); Glucose 112 mg/dL (74-106); Sodium Level 141 mmol/L (136-145)
[2022-10-18] VITALS (7 sets, daily range): BP systolic 106–124; BP diastolic 60–86; PULSE 66–74; RESP 16–18; TEMP 36.1–36.3; O2SAT 97–100; BMI 27.0
[2022-10-18] MEDS: Lactated Ringers 1,000 ML 15 ML IV ×2 (10:21→12:27)
--- NOTE | 2022-10-18 10:27 | HP.PCM_ITS ---
History and Physical Date of Admission: 10/18/22 Intake Vital Signs ? 09/20/2314:00 Height 5 ft 8 in Weight: 186 lb BMI 28.3 BP 132/83 H Blood Pressure LocationB Lt brachial Position Sitting Respiration 16 Pulse 83 Pulse Source Monitor Temp 97.9 F Temp Source Temporal Pulse Oximetry (%) 96 Oxygen Delivery Method room air Intake Visit Reasons:?Inguinal hernia Chief Complaint: L inguinal hernia Human Resources Benefits Specialist Required: No Is patient in pain?: No Allergies No Known Allergies Allergy (Verified 09/20/22 15:01) Medications paroxetine HCl 10 mg tablet 10 mg PO DAILY depression 09/16/19 [History Confirmed 09/20/22] lisinopril 5 mg tablet 5 mg PO DAILY #90 tabs 02/13/22 [Rx Confirmed 09/20/22] potassium chloride 20 mEq tablet,extended release(part/cryst) 20 meq PO DAILY #90 tabs 02/13/22 [Rx Confirmed 09/20/22] diltiazem HCl 120 mg capsule,extended release 24 hr 120 mg PO DAILY #90 caps 05/07/22 [Rx Confirmed 09/20/22] PFSH Medical History? Anxiety Atrial fibrillation with RVR Essential hypertension Hypersomnia Paroxysmal a-fib Surgical History? History of appendectomy History of cardioversion (09/16/19) history of finger reattached history of skin graft as a child S/P transesophageal echocardiogram (STEVEN) (09/16/19) Family History? Father Myocardial infarction CAD (coronary artery disease) Stented coronary artery HypertensionMother CAD (coronary artery disease) S/P CABG x 3 Atrial fibrillation Diabetes Social History? Smoking Status:? Never smoker alcohol intake:? current alcohol intake frequency: holidays/special occasions only substance use type:? does not use caffeine:? Yes Type: coffee Number of servings: 1 HPI HPI HPI: Patient has a left inguinal hernia that has been there for at least a few months.? He says it hurts especially when he has to go to the bathroom.? He denies any nausea or vomiting or any symptoms on the right side. ROS General General: No weight change, appetite, fatigue, colon cancer, breast cancer or weakness HEENT HEENT: No difficulty swallowing, eye injury, eye surgery, swollen glands or hoarseness Endo Endocrine: No thyroid disease, diabetes mellitus, thyroid cancer, Hair loss, heat intolerance or cold intolerance Skin Skin: No rash or changing moles Musc Musculoskeletal: No back problems, arthritis, rheumatoid arthritis, gout or joint pain Cardio Cardiovascular: Yes atrial fibrillation and high blood pressure; No murmur, pacemaker, heart disease, heart attack, heart stent, palpitations, shortness of breat with exertion or chest pain Psych Psychiatric: Yes anxiety; No depression or hearing voices Resp Respiratory: No shortness of breath, Yes sleep apnea, No cough, No COPD, No asthma, No emphysema and No wheezing Gastro Gastrointestinal: No abdominal pain, No nausea or vomiting, No diarrhea, No constipation, No blood in stool, Yes acid reflux, No hemorrhoids, No ulcers, No gallbladder problem and No black,tarry stools Kiran Hematologic: No blood thinners, No blood disorders, No bleeding, No anemia and No blood clots Neuro Neurologic: No system reviewed and no additional complaints, except as documented, No as per HPI, No abnormal gait, No abnormal hearing, No abnormal movements, No abnormal speech, No behavioral changes, No burning sensations, No confusion, No convulsions, No disequilibrium, No dizziness, No localized weakness, No frequent falls, No headache(s), No lack of coordination, No loss of vision, No memory loss, No numbness, No other visual disturbances, No radicular pain, No restless legs, No sensory deficit, No syncope, No tingling, No tremor(s), No weakness and No other Exam Const General: cooperative Orientation: alert and oriented x3 HENMT Head: normal to inspection Neck Neck: normal visual inspection and full ROM Chest Chest palpation & inspection: normal inspection of the chest Resp Effort & Inspection: normal respiratory effort Auscultation: clear to auscultation bilaterally Cardio Rate: regular rate Rhythm: regular rhythm GI Inspection: non-distended Palpation: soft, hernia indirect inguinal on the left and nontender Skin General: no rashes or lesions noted Neuro General: patient alert and patient oriented x3 Extrem General: full ROM Psych Appearance: grossly normal Mental Status: mental status grossly normal Assessment and Plan Assessment and Plan (1) Left inguinal hernia: ?Status:?Acute ?Plan: The patient has a left inguinal hernia which hurts him when he needs to go to the bathroom.? It is reducible.? I discussed robotic assisted left inguinal hernia repair with mesh.? I discussed mesh placement as well as the risks of bleeding, infection, injury to other organs such as the bowel, bladder, ureter or blood supply to the testicle.? Patient understands the risks and is willing proceed with robotic assisted laparoscopic left inguinal hernia repair with mesh.? I discussed fixing the contralateral side if there is a hernia present he would like this fixed if there is a hernia on the right. Tre Sharif MD Pager: [facility] [address] [place] [address] [address] [place] [address] Office: I have examined the patient and the H&P has been reviewed. There are no clinical changes since date of exam.
[2022-10-18] MEDS: Cefazolin 2 GM in 0.9% Normal Saline 100 ML IV (10:40)
[2022-10-18] MEDS: Bupivacaine 0.5% PF 10 ML VIAL (11:39)
--- NOTE | 2022-10-18 11:49 | OP.PCM_ITS ---
Report of Operation Date of Procedure: 10/18/22 Pre-Operative Diagnosis: Left inguinal hernia Post-Operative Diagnosis: Left inguinal hernia Surgery/Procedure Performed:: Robotic assisted laparoscopic left inguinal hernia repair with mesh Description of Procedure: Patient was brought back to the operating room and general anesthesia was induced. The abdomen was prepped and draped in usual sterile fashion. A midline incision was made superior to the umbilicus and deepened to the fascia which was elevated and the Veress needle was placed into the abdomen and a drop test was performed.Next the abdomen was insufflated to 15 mmHg. The varies needle was then removed and a port was placed. The camera is placed into the abdomen was inspected and there were no injuries from entry. The patient was placed in Trendelenburg position and the inguinal regions were inspected and the patient had an indirect left inguinal hernia with no hernia on the right. Under direct visualization an 8 mm port was placed in the right lateral abdominal s idewall as well as the left lateral abdominal sidewall. The robot was then docked. Using electrocautery scissors an incision was made in the peritoneum in the left lower quadrant and this was deepened down to the hernia sac and the hernia sac was dissected free of its adhesions. Dissection was carried posteriorly. Next a ProGrip mesh was unfolded in the left inguinal region and placed over the hernia defect completely covering it with good overlap. Peritoneum was reapproximated using a running 3 OV lock suture completely covering the mesh. Next the instruments were removed and the robot was undocked. The ports were removed and the abdomen was allowed to desufflate. The incisions were injected with local anesthetic and closed with interrupted 4-0 Monocryl suture. Steri-Strips and bandages were applied. Scrotum was checked to the end the case and contained both testicles. Patient was awoken and taken to PACU in stable condition and tolerated the procedure well. Grafts/Implants Used: ProGrip mesh in the left groin Admit VTE Documentation VTE Mechan Device Prophylaxis: SCD's
--- NOTE | 2022-10-18 11:52 | DCINST_ITS ---
Discharge Instructions Procedure Hernia Diet Discharge Diet: Light diet - advance as tolerated Activity Discharge Activity: May Not Drive (for 2-3 days or while taking narcotic pain meds.) and May Shower (with the bandage in place 1-2 days after surgery.) Lifting Restrictions: 20 pounds for 4 weeks. Additional Activity Instructions:: Climbing stairs is fine, walking is encouraged. Sitting in bed may be uncomfortable. Sitting up using your lateral muscles (sitting up sideways) is usually more comfortable. Do not drive, work heavy equipment of sign legal documents for 24 hours. If your hernia repair was an inguinal repair, you may have scrotal swelling, an ice pack and/or athletic support can provide more comfort. Pain medications may cause nausea, you should typically eat light foods as you take your pain medications. Pain medications may also cause constipation. If you have difficulty with this, discuss with your doctor. Dressing / Incision Call your doctor if your incision/area has: Continuous Slow Oozing, Sudden Increased Bleeding, Increased Pain/ Swelling, Increased Redness and Foul Smelling Discharge Call your doctor if you observe: Fever of 101 or Higher Suture Line Care: Avoid Pulling/Pushing and Avoid Pinching/Bending Remove Dressing in: 2 days (Remove clear bandages in 2 days, remove Steri-Strips in 7 to 10 days.) Follow Up Care Please Follow Up With: Tre Sharif MD When: Please call to schedule 2 week follow up appointment. [phone] Test Results: Test results from this visit will be discussed in further detail at your follow- up appointment, if applicable. Discharge Plan Admission Attending Provider: Tre Sharif Primary Care Provider: Casey Pillai Discharge Orders/Prescriptions Prescriptions: New oxycodone 5 mg tablet 5 - 10 mg PO Q6H PRN (Reason: pain) 5 Days Qty: 10 0RF No Action paroxetine HCl 10 MG tablet 10 mg PO DAILY lisinopril 5 mg tablet 5 mg PO DAILY Qty: 90 3RF potassium chloride 20 mEq tablet,ER particles/crystals 20 meq PO DAILY Qty: 90 3RF diltiazem HCl 120 mg capsule,extended release 24hr 120 mg PO DAILY Qty: 90 3RF Referrals / Follow Up: Casey Pillai MD [Primary Care Provider] - Disposition Disposition (needs filled in before D/C Order can be placed): Home, Self Care
== END 2022-10-18 14:44 | disposition home or self-care (01) ==
LOC: SDC 09:57 → AC 09:58
PROVIDERS: Anesthesiology; PCP Family Medicine; Referring Provider Surgery; Visit Provider Surgery
PROC: 0YQ64ZZ Repair Left Inguinal Region, Percutaneous Endoscopic Approach (ICD-10-PCS; principal; 2022-10-18 11:10)
DX: K40.90 Unilateral inguinal hernia, without obstruction or gangrene, not specified as recurrent (principal); I48.0 Paroxysmal atrial fibrillation; I10 Essential (primary) hypertension; G47.33 Obstructive sleep apnea (adult) (pediatric); F41.9 Anxiety disorder, unspecified; Z79.899 Other long term (current) drug therapy
CPT/HCPCS: 49650; S2900; 00840; 36415; 80048; 85027; 93005; J7120; J2405

== ENCOUNTER → 2024-12-23 | Outpatient (CLI) | payer OTHER, SELFPAY ==
[2024-12-23 08:58] LABS: ALB/GLOB Ratio 1.7 RATIO (0.9-2.4); AST(SGOT) 31 U/L (<=37); Alanine Aminotransfer ALT/SGPT 47 U/L (<=46); Albumin, Serum 4.5 g/dL (3.5-5.0); Alkaline Phosphatase 71 U/L (40-129); Anion Gap 11 (5-15); BUN 24 mg/dL (4-19); BUN/Creat Ratio 18.9 RATIO (10-20); Calcium,Total 9.1 mg/dL (7.6-11.0); Chloride 105 mmol/L (98-108); Cholesterol 156 mg/dL (<=200); Creatinine, Serum 1.25 mg/dL (0.70-1.20); EST Glomerular Filtration Rate 71 (>60); Globulin 2.7 g/dL (2.2-4.2); Glucose 101 mg/dL (70-99); High Density Lipoprotein 42 mg/dL; Low Density Lipoprotein Calc. 100 mg/dL; Potassium 4.2 mmol/L (3.3-5.1); Protein, Total 7.1 g/dL (5.9-8.4); Sodium Level 139 mmol/L (133-145); Triglycerides 69 mg/dL; Very Low Density Lipoprotein 14 mg/dL (5-40); cholesterol:hdl ratio screen 3.71
== END | disposition home or self-care (01) ==
LOC: LAB 07:01
PROVIDERS: PCP Family Medicine; Referring Provider Family Medicine; Visit Provider Family Medicine
DX: I10 Essential (primary) hypertension (principal); R53.83 Other fatigue
CPT/HCPCS: 36415; 80053; 80061; 84403; 84443

== ENCOUNTER 2025-04-02 00:54 | Emergency (ER) | payer OTHER, SELFPAY ==
[2025-04-02] VITALS (11 sets, daily range): BP systolic 105–142; BP diastolic 79–99; PULSE 64–120; RESP 15–19; TEMP 36.4–36.6; O2SAT 94–100; BMI 27.3
--- OUTSIDE RECORDS SUMMARY | 2025-04-02 01:18 | XMS RPT_ITS | CCD ---
Author Organization [facility] Care Team Providers Care [employer] Specialist Name Role Phone Casey Serrato MD Primary Care Provider [phone] Rosas, Dr. Peña Primary Care Provider [phone] Rosas, Dr. Peña Referring Provider Dr. Tre Sharif Attending Provider Dr. Víctor Mac Attending Provider Dr. Tre Sharif Referring Provider Dr. Tre Sharif Other Provider Casey Serrato MD Primary Care Provider CASEY SERRATO Primary Care Unavailable Rosas AYALA, Dr. Peña Primary Care Provider [phone] Rosas AYLAA, Dr. Peña Attending Provider Rosas AYALA, Dr. Peña Referring Provider Casey Serrato Attending Unavailable Casey Serrato Referring Unavailable Rosas, Casey Primary Care Unavailable Rosas, Casey Referring Unavailable [facility] RABIES INSPECTOR, Raymond Alberts Attending Unavailable Rosas, Casey Primary Care Unavailable Medications Current Medications Medication Drug Class(es) Dates Sig (Normalized) Sig (Original) amoxicillin 875 mg / clavulanate 125 mg oral tablet (1 source) Penicillin-class Antibacterial Start: 07-12-2022 End: 07-19-2022 take 1 tablet by mouth twice daily amoxicillin-clavul anic acid (AUGMENTIN) 875-125 mg per tablet Indications: Bacterial sinusitis Take 1 tablet by mouth twice daily for 7 days. 14 tablet 0 07/12/2022 07/19/2022 Active Comment on above: Take 1 tablet by joey twice daily for 7 days. cephalexin 500 mg oral capsule (1 source) Cephalosporin Antibacterial Start: 11-15-2024 End: 11-20-2024 take 1 capsule by mouth four times daily cephALEXin (KEFLEX) 500 mg capsule Take 1 capsule by mouth four times daily for 5 days. 20 capsule 11/15/2024 11/20/2024 Active ciprofloxacin 500 mg oral tablet (2 sources) Quinolone Antimicrobial Start: 05-03-2016 ciprofloxacin HCl (CIPRO) 500 mg tablet Indications: Kidney stones , Urinary frequency Take 500 mg in office prior to procedure-to be administered per clinical support. 1 tablet 0 05/03/2016 Active Comment on above: Take 500 mg in offic e prior to procedure-to be administered per clinical support. 24 hr dilTIAZem hydrochloride 120 mg extended release oral capsule (14 sources) Calcium Channel Alfonso Start: 04-25-2021 CARTIA XT 120 mg 24 hr capsule 04/25/2021 Active Start: 09-16-2019 End: 03-16-2024 take 1 capsule by mouth once daily Diltiazem Hcl 120 mg capsule,extended release 24hr Active 0 .ROUTE .COMPLEX March 16, 2024 8:58am TAKE 1 CAPSULE BY MOUTH DAILY erythromycin 0.005 mg/mg ophthalmic ointment (1 source) Macrolide, Macrolide Antimicrobial Start: 11-15-2024 End: 11-22-2024 erythromycin (ROMYCIN) 5 mg/gram (0.5 %) ophthalmic ointment Use 1 application in the left eye two times a day for 7 days. 3.5 g 11/15/2024 11/22/2024 Active fluticasone propionate 0.05 mg/actuat metered dose nasal spray (1 source) Corticosteroid Start: 12-30-2022 take 2 spray(s) by mouth once daily fluticasone (FLONASE) 50 mcg/actuation nasal spray Indications: Rhinosinusitis Use 2 Sprays in each nostril once daily. Rinse mouth after use. 1 Each 12/30/2022 Active lisinopril 5 mg oral tablet (14 sources) Angiotensin Converting Enzyme Inhibitor Start: 03-17-2020 End: 11-09-2024 take 1 tablet by mouth once daily Lisinopril 5 mg tablet Active 5 mg PO DAILY November 09, 2024 8:25am PARoxetine hydrochloride 10 mg oral tablet (4 sources) Serotonin Reuptake Inhibitor Start: 12-11-2013 take 1 tablet by mouth once daily Paroxetine Hcl 10 MG tablet Active 10 mg PO DAILY September 16, 2019 1:00am Comment on above: Take 1 tablet by joey once daily. microencapsulated potassium chloride 20 meq extended release oral tablet (14 sources) Start: 10-06-2019 End: 11-09-2024 take 1 tablet by mouth once daily Potassium Chloride 20 mEq tablet,ER particles/crystals Active 20 meq PO DAILY 90 November 09, 2024 8:25am tamsulosin hydrochloride 0.4 mg oral capsule (2 sources) alpha-Adrenergic Alfonso Start: 05-03-2016 take 1 capsule by mouth once daily tamsulosin ER (FLOMAX) 0.4 mg cp24 Take 1 capsule by mouth once daily. 90 capsule 4 05/03/2016 Active Comment on above: Take 1 capsule by mo [facility] once daily. Completed/Discontinued Medications Medication Drug Class(es) Dates Sig (Normalized) Sig (Original) oxyCODONE hydrochloride 5 mg oral tablet (2 sources) Opioid Agonist Start: 10-18-2022 End: 02-06-2023 take 5-10 mg by mouth every six hours as needed for pain Oxycodone 5 mg tablet Discontinued 5 - 10 mg PO EVERY 6 HOURS as needed for pain 10 5 October 18, 2022 February 06, 2023 3:24pm Problems Active Problems Problem Classification Problem Date Documented Date Episodic/Chronic Abdominal hernia (3 sources) Left inguinal hernia ; Translations: [Unilateral inguinal hernia, without obstruction or gangrene, not specified as recurrent] 09-20-2022 Episodic Anxiety disorders (2 sources) Anxiety; Translations: [Anxiety disorder, unspecified] 09-16-2019 Chronic Cardiac dysrhythmias (4 sources) Paroxysmal atrial fibrillation; Translations: [Paroxysmal atrial fibrillation] 09-16-2019 Chronic Esophageal disorders (2 sources) Gastroesophageal reflux disease; Translations: [Gastro-esophageal reflux disease without esophagitis] 09-20-2022 Chronic Essential hypertension (5 sources) Essential hypertension; Translations: [Essential (primary) hypertension] Onset: 12-28-2024 09-22-2020 Chronic Other eye disorders (1 source) Disorder of eye; Translations: [Unspecified disorder of eye and adnexa] 11-15-2024 Episodic Other upper respiratory infections (1 source) Bacterial sinusitis; Translations: [Chronic sinusitis, unspecified] Chronic Residual codes; unclassified (2 sources) Obstructive sleep apnea syndrome; Translations: [Obstructive sleep apnea (adult) (pediatric)] 09-22-2020 Chronic Comment on above: Overall AHI 21.4, in itiate AutoPap 4 to 15 cm of water Residual codes; unclassified (2 sources) Hypersomnia; Translations: [Hypersomnia, unspecified] 10-06-2019 Chronic Past or Other Problems Problem Classification Problem Date Documented Date Episodic/Chronic Calculus of urinary tract (2 sources) History of calculus of kidney; Translations: [Personal history of urinary calculi] Onset: 04-12-2016 04-12-2016 Episodic Fluid and electrolyte disorders (2 sources) Dehydration; Translations: [Dehydration] Onset: 04-12-2016 04-12-2016 Episodic Genitourinary symptoms and ill-defined conditions (4 sources) Increased frequency of urination; Translations: [Frequency of micturition] Onset: 04-12-2016 04-12-2016 Episodic Residual codes; unclassified (2 sources) Past history of procedure; Translations: [Other specified postprocedural states] Onset: 09-16-2019 12-14-2019 Episodic Residual codes; unclassified (2 sources) History of cardioversion; Translations: [Personal history of other medical treatment] Onset: 09-16-2019 12-14-2019 Episodic Unclassified (2 sources) history of finger reattached 12-14-2019 Unclassified (2 sources) history of skin graft as a child 12-14-2019 Results Test Name Value Interpretation Reference Range Facility Anion gap in Serum or Plasma Ordered By: Casey Serrato on 12-23-2024 Anion gap [Moles/Vol] 11 mmol/L - [facility] BUN/creatinine ratioOrdered By: Casey Serrato on 12-23-2024 Urea nitrogen/Creatinine [Mass ratio] 18.9 mg/mg 10-20 [facility] Bilirubin, totalOrdered By: Casey Serrato on 12-23-2024 Bilirubin [Mass/Vol] 1.70 mg/dL High 0.00-1.30 [facility] Calculated very low density lipoprotein (VLDL) cholesterol measurementOrdered By: Casey Serrato on 12-23-2024 Calculated very low density lipoprotein (VLDL) cholesterol measurement 14 mg/dL 5-40 [facility] Carbon dioxide, total [Moles /volume] in Central venous bloodOrdered By: Casey Serrato on 12-23-2024 CO2 [Moles/Vol] 23.0 mmol/L 21.0-32.0 [facility] Chloride assayOrdered By: Jeremiah Serrato on 12-23-2024 Chloride [Moles/Vol] 105 mmol/L 98-108 [facility] Comprehensive Metabolic Prof ilon 12-23-2024 Albumin [Mass/Vol] 4.5 g/dL Normal 3.5-5.0 [facility] Comment on above: Performed By: #### L 500.4050, L500.4100, L501.9520, L509.3001 #### [facility] [address] [place], [address] Albumin/Globulin [Mass ratio] 1.7 {ratio} Normal 0.9-2.4 [facility] Comment on above: Performed By: #### L 500.4050, L500.4100, L501.9520, L509.3001 #### [facility] [address] [place], [address] ALK PHOS 71 U/L Normal 40-129 [facility] Comment on above: Performed By: #### L 500.4050, L500.4100, L501.9520, L509.3001 #### [facility] [address] [place], [address] ALT [Catalytic activity/Vol] 47 U/L Normal <=46 [facility] Comment on above: Performed By: #### L 500.4050, L500.4100, L501.9520, L509.3001 #### [facility] [address] [place], [address] AST [Catalytic activity/Vol] 31 U/L Normal <=37 [facility] Comment on above: Performed By: #### L 500.4050, L500.4100, L501.9520, L509.3001 #### [facility] [address] [place], [address] Bilirubin [Mass/Vol] 1.70 mg/dL High 0.00-1.30 [facility] Comment on above: Performed By: #### L 500.4050, L500.4100, L501.9520, L509.3001 #### [facility] [address] [place], [address] BUN/CRE 18.9 RATIO Normal 10-20 [facility] Comment on above: Performed By: #### L 500.4050, L500.4100, L501.9520, L509.3001 #### [facility] [address] [place], [address] Calcium [Mass/Vol] 9.1 mg/dL Normal 7.6-11.0 [facility] Comment on above: Performed By: #### L 500.4050, L500.4100, L501.9520, L509.3001 #### [facility] [address] [place], [address] Chloride [Moles/Vol] 105 mmol/L Normal 98-108 [facility] Comment on above: Performed By: #### L 500.4050, L500.4100, L501.9520, L509.3001 #### [facility] [address] [place], [address] CO2 [Moles/Vol] 23.0 mmol/L Normal 21.0-32.0 [facility] Comment on above: Performed By: #### L 500.4050, L500.4100, L501.9520, L509.3001 #### [facility] [address] [place], [address] Creatinine [Mass/Vol] 1.25 mg/dL High 0.70-1.20 [facility] Comment on above: Performed By: #### L 500.4050, L500.4100, L501.9520, L509.3001 #### [facility] [address] [place], [address] GAP 11 Normal 5-15 [facility] Comment on above: Performed By: #### L 500.4050, L500.4100, L501.9520, L509.3001 #### [facility] [address] [place], [address] GFR/1.73 sq M.predicted among non-blacks MDRD (S/P/Bld) [Vol rate/Area] 71 mL/min/{1.73_m2} Normal >60 [facility] Comment on above: Result Comment: mL/m in/1.73m2 CKD-EPI Creatinine Equation (2020) Performed By: #### L 500.4050, L500.4100, L501.9520, L509.3001 #### [facility] [address] [place], [address] Globulin (S) [Mass/Vol] 2.7 g/dL Normal 2.2-4.2 [facility] Comment on above: Performed By: #### L 500.4050, L500.4100, L501.9520, L509.3001 #### [facility] [address] [place], [address] Glucose [Mass/Vol] 101 mg/dL High 70-99 [facility] Comment on above: Performed By: #### L 500.4050, L500.4100, L501.9520, L509.3001 #### [facility] [address] [place], [address] Potassium [Moles/Vol] 4.2 mmol/L Normal 3.3-5.1 [facility] Comment on above: Performed By: #### L 500.4050, L500.4100, L501.9520, L509.3001 #### [facility] [address] [place], [address] Sodium [Moles/Vol] 139 mmol/L Normal 133-145 [facility] Comment on above: Performed By: #### L 500.4050, L500.4100, L501.9520, L509.3001 #### [facility] [address] [place], [address] T PROT 7.1 g/dL Normal 5.9-8.4 [facility] Comment on above: Performed By: #### L 500.4050, L500.4100, L501.9520, L509.3001 #### [facility] [address] [place], [address] Urea nitrogen [Mass/Vol] 24 mg/dL High 4-19 [facility] Comment on above: Performed By: #### L 500.4050, L500.4100, L501.9520, L509.3001 #### [facility] [address] [place], [address] Glomerular filtration rate ( GFR) estimation/1.73 sq m using serum, plasma, or whole bOrdered By: Casey Serrato on 12-23-2024 GFR/1.73 sq M.predicted among non-blacks MDRD (S/P/Bld) [Vol rate/Area] 71 mL/min/{1.73_m2} >60 [facility] Comment on above: mL/min/1.73m2 CKD-EP I Creatinine Equation (2020) L509.3001on 12-23-2024 Testosterone [Mass/Vol] 584.00 ng/dL Normal 300-890 [facility] Comment on above: Performed By: #### L 500.4050, L500.4100, L501.9520, L509.3001 #### [facility] [address] [place], [address] LDL calc ser/plasOrdered By: Casey Serrato on 05-14-2025 Cholesterol in LDL [Mass/Vol] 100 mg/dL [facility] Comment on above: Hvjzwxcuse=214-918 m g/dL & Higher Aolb=379 mg/dL or greater Laboratory - Chemistry and C hemistry - challengeOrdered By: Casey Serrato on 12-23-2024 AST [Catalytic activity/Vol] 31 U/L <38 [facility] Testosterone [Mass/Vol] 584.00 ng/dL 300-890 [facility] Lipid Profileon 12-23-2024 CHOL:HDL 3.71 Normal [facility] Comment on above: Performed By: #### L 500.4050, L500.4100, L501.9520, L509.3001 #### [facility] [address] [place], [address] Cholesterol [Mass/Vol] 156 mg/dL Normal <=200 [facility] Comment on above: Result Comment: Chol esterol level, Desirable <200 mg/dL Borderline high cholesterol 200-239 mg/dL High cholesterol >=240 mg/dL Recommendations of the NCEP Adult Treatment Panel for the following risk-cutoff thresholds for the [place] population. Performed By: #### L 500.4050, L500.4100, L501.9520, L509.3001 #### [facility] [address] [place], [address] Cholesterol in HDL [Mass/Vol] 42 mg/dL Normal [facility] Comment on above: Result Comment: Megan onal Cholesterol Education Program (NCEP) guidelines: <40 mg/dL: Low HDL-cholesterol (major risk factor for CHD) >= 60 mg/dL: High HDL-cholesterol (negative risk factor for CHD) HDL-cholesterol is affected by a number of factors, e.g. smoking, exercise, hormones, sex and age. Performed By: #### L 500.4050, L500.4100, L501.9520, L509.3001 #### [facility] [address] [place], [address] Cholesterol in LDL [Mass/Vol] 100 mg/dL Normal [facility] Comment on above: Result Comment: Bord owoxho=335-466 mg/dL Higher Ccwl=649 mg/dL or greater Performed By: #### L 500.4050, L500.4100, L501.9520, L509.3001 #### [facility] [address] [place], [address] Cholesterol in VLDL [Mass/Vol] 14 mg/dL Normal 5-40 [facility] Comment on above: Performed By: #### L 500.4050, L500.4100, L501.9520, L509.3001 #### [facility] [address] [place], [address] Triglyceride [Mass/Vol] 69 mg/dL Normal [facility] Comment on above: Result Comment: The drugs N-Acetylcysteine and Metamizole may falsely depress this assay. Normal range: <150 mg/dL Borderline High: 150-199 mg/dL High: 200-499 mg/dL Very High: >500 mg/dL Performed By: #### L 500.4050, L500.4100, L501.9520, L509.3001 #### [facility] [address] [place], [address] Potassium measurement (mass/ volume)Ordered By: Casey Serrato on 12-23-2024 Potassium (Unsp spec) [Mass/Vol] 4.2 mmol/L 3.3-5.1 [facility] Screening total cholesterol/ high density lipoprotein (HDL) cholesterol ratioOrdered By: Casey Serrato on 12-23-2024 Cholesterol.total/Bee sterol in HDL [Mass ratio] 3.71 {ratio} [facility] Serum creatinine measurement (mass/volume)Ordered By: Casey Serrato on 12-23-2024 Creatinine [Mass/Vol] 1.25 mg/dL High 0.70-1.20 [facility] Serum globulin measurementOr dered By: Casey Serrato on 12-23-2024 Globulin (S) [Mass/Vol] 2.7 g/dL 2.2-4.2 [facility] Serum glucose measurement (m ass/volume)Ordered By: Casey Serrato on 12-23-2024 Glucose [Mass/Vol] 101 mg/dL High 70-99 [facility] Serum or plasma alanine edwards otransferase (ALT) measurementOrdered By: Casey Serrato on 12-23-2024 ALT [Catalytic activity/Vol] 47 U/L <47 [facility] Serum or plasma albumin adrian urement (mass/volume)Ordered By: Casey Serrato on 12-23-2024 Albumin [Mass/Vol] 4.5 g/dL 3.5-5.0 [facility] Serum or plasma albumin/glob ulin mass ratioOrdered By: Casey Serrato on 12-23-2024 Albumin/Globulin [Mass ratio] 1.7 {ratio} 0.9-2.4 [facility] Serum or plasma alkaline tarah sphatase measurementOrdered By: Casey Serrato on 12-23-2024 ALP [Catalytic activity/Vol] 71 U/L 40-129 [facility] Serum or plasma calcium adrian urement (mass/volume)Ordered By: Casey Serrato on 12-23-2024 Calcium [Mass/Vol] 9.1 mg/dL 7.6-11.0 [facility] Serum or plasma cholesterol in HDL measurement (mass/volume)Ordered By: Casey Serrato on 12-23-2024 Cholesterol in HDL [Mass/Vol] 42 mg/dL >40 [facility] Comment on above: National Cholesterol Education Program (NCEP) guidelines:<40 mg/dL: Low HDL-cholesterol (major risk factor for CHD)>= 60 mg/dL: High HDL-cholesterol (negative risk factor for CHD)HDL-cholesterol is affected by a number of factors, e.g. smoking, exercise, hormones, sex and age. Serum or plasma cholesterol measurement (mass/volume)Ordered By: Casey Serrato on 12-23-2024 Cholesterol [Mass/Vol] 156 mg/dL <201 [facility] Comment on above: Cholesterol level, D esirable <200 mg/dLBorderline high cholesterol 200-239 mg/dLHigh cholesterol >=240 mg/dLRecommendations of the NCEP Adult Treatment Panel for the following risk-cutoff thresholds for the [place] population. Serum or plasma urea nitroge n measurement (mass/volume)Ordered By: Casey Serrato on 12-23-2024 Urea nitrogen [Mass/Vol] 24 mg/dL High 4-19 [facility] Sodium levelOrdered By: Casey Serrato on 12-23-2024 Sodium [Moles/Vol] 139 mmol/L 133-145 [facility] TSH DL <= 0.005 mIU/L QnOrde red By: Casey Serrato on 12-23-2024 TSH Qn 1.070 uIU/mL 0.300-4.200 [facility] Thyroid Stim Hormone (TSH)on 12-23-2024 TSH 1.070 uIU/mL Normal 0.300-4.200 [facility] Comment on above: Performed By: #### L 500.4050, L500.4100, L501.9520, L509.3001 #### [facility] [address] [place], [address] Total proteinOrdered By: Charlotte Serrato on 12-23-2024 Protein [Mass/Vol] 7.1 g/dL 5.9-8.4 [facility] Triglycerides measurementOrd ered By: Casey Serrato on 12-23-2024 Triglyceride [Mass/Vol] 69 mg/dL <199 [facility] Comment on above: The drugs N-Acetylcy steine and Metamizole may falsely depress this assay. Normal range: <150 mg/dLBorderline High: 150-199 mg/dLHigh: 200-499 mg/dLVery High: >500 mg/dL CNOVon 11-15-2024 CNOV Office Visit ([facility] ) RUI TATUM ([id number]) 1975 M Date Time Provider Department 11/15/24 10:00 AM ESTRELLA ESQUIVEL [facility] During your visit today, we recorded the following information about you: Temperature Pulse Respiration Blood pressure 98.1 degrees 66/minute 16/minute 144/92 Weight 85 kg Estrella Esquivel APRN.[facility] 11/15/2024 10:52 AM Signed [facility] Subjective HPI Rui Tatum is a 49 year old male. Patient presents with: Eye Problem: Left eyelid redness, swelling, sore and itchy x 2 weeks Left Eye Redness and Swelling: - Redness and swelling in the left eye x2 weeks. - Initially thought to be a stye; has had similar episodes in the past that resolved within a couple of days. - Has been using warm compresses and Motrin for pain management. - Noticed significant puffiness this morning, prompting the visit. - Denies fever, chills, pain behind the eye, or changes in vision. - Reports a small bump in the eyelashes, which is the most tender area. Review of Systems Constitutional: (-) fever, (-) chills Eyes: (+) left eye redness, (+) left periorbital edema, (+) left eye pain, (-) visual disturbances Ears/Nose/Mouth/Throa t: (-) post nasal drip Objective BP 144/92 (BP Site: Left Arm, BP Position: Sitting) Pulse 66 Temp 36.7 ?C (98.1 ?F) Resp 16 Wt 85 kg (187 lb 6.3 oz) SpO2 98% Physical Exam Constitutional: General: He is not in acute distress. HENT: Head: Normocephalic and atraumatic. Eyes: General: Lids are everted, no foreign bodies appreciated. Vision grossly intact. No allergic shiner. Right eye: No foreign body, discharge or hordeolum. Left eye: Hordeolum present.No foreign body or discharge. Extraocular Movements: Extraocular movements intact. Conjunctiva/sclera: Conjunctivae normal. Pupils: Pupils are equal, round, and reactive to light. Funduscopic exam: Right eye: Red reflex present. Left eye: Red reflex present. Pulmonary: Effort: Pulmonary effort is normal. Musculoskeletal: Cervical back: Normal range of motion and neck supple. Skin: General: Skin is warm and dry. Neurological: Mental Status: He is alert and oriented to person, place, and time. The patient consented to the use of [employer] software for draft documentation of the visit consistent with [facility]?s Notice of Privacy Practices. History and Record Review External record(s) reviewed: prior outpatient record. ASSESSMENT/PLAN: 1. Eye problem - ICD9: V41.1, ICD10: H57.9 Appears to be stye - Apply erythromycin ointment along the lash line of your left eye twice a day for 7 days. - Continue warm compresses - If you do not notice any improvement within 48 hours or if the condition worsens, start the oral antibiotic as prescribed. 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 Pt acknowledged understanding of concepts and follow up plan. Specific signs and symptoms that would indicate the need for higher level of care were discussed in detail warranting prompt ER evaluation. Estrella Esquivel APRN.Estrella Green APRN.CNP 11/15/2024 10:39 AM Signed - Apply erythromycin ointment along the lash line of your left eye twice a day for 7 days. - If you do not notice any improvement within 48 hours or if the condition worsens, start the oral antibiotic as prescribed. Allergies As of Date: 11/15/2024 (No Known Allergies) Date Reviewed: 11/15/2024 Reviewed by: Luzma Miguel OCCA - Fully Assessed Reason for Visit: Eye Problem [43] Cmt: Left eyelid redness, swelling, sore and itchy x 2 weeks Primary Visit Diagnosis:Eye problem [H57.9] Order(s):cephALEXin (KEFLEX) 500 mg capsuleTake 1 capsule by mouth four times daily for 5 days.Disp: 20 capsuleRfl: 0 erythromycin (ROMYCIN) 5 mg/gram (0.5 %) ophthalmic ointmentUse 1 application in the left eye two times a day for 7 days.Disp: 3.5 gRfl: 0 Prescriptions as of 11/15/2024 - cephALEXin (KEFLEX) 500 mg capsule Take 1 capsule by mouth four times daily for 5 days. - erythromycin (ROMYCIN) 5 mg/gram (0.5 %) ophthalmic ointment Use 1 application in the left eye two times a day for 7 days. - fluticasone (FLONASE) 50 mcg/actuation nasal spray Use 2 Sprays in each nostril once daily. Rinse mouth after use. - lisinopril (ZESTRIL, PRINIVIL) 5 mg tablet - CARTIA XT 120 mg 24 hr capsule - potassium chloride ER (K-DUR, KLOR-CON) 20 mEq tablet - tamsulosin ER (FLOMAX) 0.4 mg cp24 Take 1 capsule by mouth once daily. - ciprofloxacin HCl (CIPRO) 500 mg tablet Take 500 mg in office prior to procedure-to be administered per clinical support. - PARoxetine (PAXIL) 10 mg tablet Take 1 tablet by mouth once daily. Problem List As Of Date 11/15/2024 Noted Resolved Urinary frequency [R35.0] 04/12/2016 Personal history of (more content not included)... Normal [facility] Cardiology Visit Reporton Cardiology Visit Report [facility] [address] [place] [address] OFFICE VISIT Date of Service: 03/31/24 MR#: [id number] Acct: [id number] Name: MARIANNBHAVANIKARRUI Marilyn Rep #: [id number] : 1975 Provider: CECI abarca Age/Sex: 48/M Location[place] [facility] [place] Status: Signed HPI HPI History of Present Illness Details: This is a 48-year-old male who presents to the office today for a cardiovascular outpatient follow- up. He has a history of paroxysmal atrial fibrillation status post STEVEN guided cardioversion on 09/16/2019, hypertension, obstructive sleep apnea with a mouth.guard, and family history of coronary artery disease and atrial fibrillation. He denies chest, arm, jaw, or neck discomfort. He denies palpitations. He denies bilateral lower extremity edema. He denies claudication. He denies shortness of breath with activity, shortness of breath at rest, orthopnea, or PND. He denies chronic cough. He denies significant, sudden weight gain. He denies lightheadedness, dizziness, near-syncope, or syncope. He denies blood in urine, blood in stool, or epistaxis. He denies fever with chills. He denies myalgia. He denies fatigue. His exercise level has remained stable. Intake Vital Signs 02/06/23 15:22 03/31/24 14:56 Height 5 ft 9 in 5 ft 9 in Weight: 181 lb BMI 26.7 BP 123/84 H Blood Pressure Location Lt brachial Position Sitting Respiration 18 Pulse 88 Pulse Source Monitor Pulse Oximetry (%) 97 Intake Visit Reasons: 14 M FU (MOVED FROM [facility]) Cable Swager Required: No Is patient in pain?: No Allergies No Known Allergies Allergy (Verified 02/06/23 15:22) Medications ???Medication ???Instructions ???Recorded ???Confirmed ???Type paroxetine HCl 10 mg tablet 10 mg PO DAILY depression 09/16/19 03/31/24 History lisinopril 5 mg tablet 5 mg PO DAILY #90 tabs 12/04/23 03/31/24 Rx potassium chloride 20 mEq 20 meq PO DAILY #90 tabs 12/04/23 03/31/24 Rx tablet,extended release(part/cryst) diltiazem HCl 120 mg See Rx Instructions .Route 03/16/24 03/31/24 Rx capsule,extended release 24 hr .COMPLEX #90 caps PFSH Medical History Anxiety Alcohol use Migraine headache Heartburn CPAP (continuous positive airway pressure) dependence Hypertension History of stress test History of echocardiogram H/O transesophageal echocardiography (STEVEN) for monitoring Cardiology follow-up encounter History of atrial fibrillation Essential hypertension Hypersomnia Atrial fibrillation with RVR Paroxysmal a-fib Anxiety Surgical History history of skin graft as a child history of finger reattached History of appendectomy History of cardioversion (09/16/19) S/P transesophageal echocardiogram (STEVEN) (09/16/19) Family History (Updated 03/31/24 @ 15:16 by Raymond Bah RABIES INSPECTOR, RABIES INSPECTOR-C) Father Myocardial infarction CAD (coronary artery disease) early 50s Stented coronary artery Hypertension Mother CAD (coronary artery disease) early 50s S/P CABG x 3 Atrial fibrillation Diabetes Social History Smoking Status: Never smoker alcohol intake: current alcohol intake frequency: holidays/special occasions only substance use type: does not use caffeine: Yes Type: coffee Number of servings: 1 ROS Const Const: Negative for fatigue, weakness, body ache, fever(s) or chills ENT ENT: Negative for dizziness or Nosebleed/epistaxis Cardio Chest Pain: No Palpitations: No Edema: None Muscle aches with walking: None Resp Respiratory: Negative for SOB with activity, SOB at rest, SOB orthopnea SOB lying down, Cough or paroxysmal nocturnal dyspnea GI GI: Negative nausea, vomiting blood/hematemesis, bright, red blood in stools or black,tarry stools : Negative for hematuria or frequent nighttime urination/ nocturia Musc Musc: Negative for muscle aches/ myalgia Skin Skin: Negative non-healing lesions or rash Neuro Neuro: Negative for dizziness, lightheadedness, near syncope, syncope, orthostatic symptoms or weakness Endo Endo: Negative for fatigue Allergy Allergy/Immunology: Negative for rash Cardiology Exam Const Appearance: cooperative, healthy appearing, comfortable and no acute distress Nutritional Appearance: well nourished and overweight Orientation: alert, awake and oriented x3 Head Head: normal to inspection Ears: hearing grossly normal bilaterally Nose: external nose normal Face and Sinus: face symmetric Mouth: oral mucosae normal Eyes General: appearance normal, both eyes and all related structures Eyelids: eyelids normal EOM: EOM intact bilaterally Neck Neck: normal visual inspection and no JVD Carotids: nor (more content not included)... Normal [facility] Basophil percentageOrdered B y: Dr. White on 10-05-2022 Chloride [Moles/Vol] 107 mmol/L 98-107 [facility] Glucose [Mass/Vol] 112 mg/dL 74-106 [facility] Comment on above: Fasting Glucose resu lt from 100 to 125 mg/dL suggests IMPAIRED HOMEOSTASIS per A.D.A. criteria. Potassium [Moles/Vol] 4.0 mmol/L 3.5-5.1 [facility] Sodium [Moles/Vol] 141 mmol/L 136-145 [facility] WBC (Bld) [#/Vol] 6.1 10*3/uL 4.4-11.0 [facility] Blood erythrocytes count (nu mber/volume)Ordered By: Dr. White on 10-05-2022 RBC (Bld) [#/Vol] 4.90 10*6/uL 4.6-6.2 [facility] Blood hemoglobin measurement (mass/volume)Ordered By: Dr. White on 10-05-2022 Hemoglobin (Bld) [Mass/Vol] 15.4 g/dL 13.0-16.5 [facility] Blood platelet mean volumeOr dered By: Dr. White on 10-05-2022 Platelet mean volume (Bld) [Entitic vol] 9.9 fL 6.2-12.0 [facility] Determination of erythrocyte mean corpuscular volume (MCV)Ordered By: Dr. White on 10-05-2022 MCV (RBC) [Entitic vol] 90.6 fL 80-94 [facility] Hematocrit Auto (Bld) [Volum e fraction]Ordered By: Dr. White on 10-05-2022 Hematocrit (Bld) [Volume fraction] 44.4 % 40-54 [facility] Laboratory - Chemistry and C hemistry - challengeOrdered By: Dr. White on 10-05-2022 CO2 [Moles/Vol] 26.0 mmol/L 21.0-32.0 [facility] Urea nitrogen/Creatinine [Mass ratio] 20.7 mg/mg 10-20 [facility] Laboratory - Hematology and Cell countsOrdered By: Dr. White on 10-05-2022 Erythrocyte distribution width (RBC) [Entitic vol] 40.2 fL 35.1-43.9 [facility] Erythrocyte distribution width (RBC) [Ratio] 12.3 % 11.6-14.6 [facility] MCH (RBC) [Entitic mass] 31.4 pg 27.0-32.0 [facility] MCHC Auto (RBC) [Mass/Vol]Or dered By: Dr. White on 10-05-2022 MCHC (RBC) [Mass/Vol] 34.7 g/dL 32-36 [facility] No Panel InformationOrdered By: Dr. White on 10-05-2022 Estimated GFR (MDRD) Amer 73 mL/min >60 [facility] Comment on above: GFR Calc Estimated GFR (MDRD) Non-Af Amer 60 mL/min >60 [facility] Comment on above: Non- GFR Calc Platelets bldOrdered By: Dr. White on 10-05-2022 Platelets (Bld) [#/Vol] 234 10*3/uL 150-450 [facility] Serum or plasma calcium darian urement (mass/volume)Ordered By: Dr. White on 10-05-2022 Calcium [Mass/Vol] 9.1 mg/dL 8.5-10.1 [facility] Serum or plasma creatinine m easurement (mass/volume)Ordered By: Dr. White on 10-05-2022 Creatinine [Mass/Vol] 1.35 mg/dL 0.70-1.30 [facility] Comment on above: The validity of the calculated GFR & GFRAA in patients over 70 years has not been determined. Clinical correlation is essential. Serum or plasma urea nitroge n measurement (mass/volume)Ordered By: Dr. White on 10-05-2022 Urea nitrogen [Mass/Vol] 28 mg/dL 7-18 [facility] Thin prep Papanicolaou smear with manual screeningOrdered By: Dr. White on 10-05-2022 Thin prep Papanicolaou smear with manual screening 8 5-15 [facility] Vital Signs Date Time Vital Sign Value Performing Clinician Facility 11-15-2024 10:02-0400 Body temperature 98.1 [degF] Estrella Esquivel APRN.RECEIVING LEAD Work Phone: [facility] 11-15-2024 10:02-0400 Body weight 85 kg Estrella Esquivel APRN.EDWINA Work Phone: [facility] 11-15-2024 10:02-0400 Diastolic blood pressure 92 mm[Hg] Estrella Esquivel APRN.RECEIVING LEAD Work Phone: [facility] 11-15-2024 10:02-0400 Heart rate 66 /min Estrella Esquivel APRN.RECEIVING LEAD Work Phone: [facility] 11-15-2024 10:02-0400 Respiratory rate 16 /min Estrella Esquivel APRN.RECEIVING LEAD Work Phone: [facility] 11-15-2024 10:02-0400 SaO2% (BldA) [Mass fraction] 98 % Estrella Esquivel APRN.RECEIVING LEAD Work Phone: [facility] 11-15-2024 10:02-0400 Systolic blood pressure 144 mm[Hg] Estrella Esquivel ORALIAGriceldaEDWINA Work Phone: [facility] 10-18-2022 13:45-0500 Body temperature 97.1 [degF] Dr. Casey Serrato Work Phone: [facility] 10-18-2022 13:45-0500 Diastolic blood pressure 85 mm[Hg] Dr. Casey Serrato Work Phone: [facility] 10-18-2022 13:45-0500 Heart rate 74 /min Dr. Casey Serrato Work Phone: [facility] 10-18-2022 13:45-0500 Respiratory rate 16 /min Dr. Casey Serrato Work Phone: [facility] 10-18-2022 13:45-0500 SaO2% (BldA) [Mass fraction] 99 % Dr. Casey Serrato Work Phone: [facility] 10-18-2022 13:45-0500 Systolic blood pressure 116 mm[Hg] Dr. Casey Serrato Work Phone: [facility] 10-18-2022 10:14-0500 Body height 175.[address] Casey Serrato Work Phone: [facility] 10-18-2022 10:14-0500 Body mass index (BMI) [Ratio] 27 kg/m2 Dr. Casey Serrato Work Phone: [facility] 10-18-2022 10:14-0500 Body weight [address] Casey Serrato Work Phone: [facility] 09-20-2022 15:00-0500 Body mass index (BMI) [Ratio] 28.3 kg/m2 Dr. Casye Serrato Work Phone: [facility] 09-20-2022 15:00-0500 Body temperature 97.9 [degF] Dr. Casey Serrato Work Phone: [facility] 09-20-2022 15:00-0500 Body weight 84.[address] Casey Serrato Work Phone: [facility] 09-20-2022 15:00-0500 Diastolic blood pressure 83 mm[Hg] Dr. Casey Serrato Work Phone: [facility] 09-20-2022 15:00-0500 Heart rate 83 /min Dr. Casey Serrato Work Phone: [facility] 09-20-2022 15:00-0500 Respiratory rate 16 /min Dr. Casey Serrato Work Phone: [facility] 09-20-2022 15:00-0500 SaO2% (BldA) [Mass fraction] 96 % Dr. Casey Serrato Work Phone: [facility] 09-20-2022 15:00-0500 Systolic blood pressure 132 mm[Hg] Dr. Casey Serrato Work Phone: [facility] 07-12-2022 11:50-0500 Body temperature 97.39 [degF] Anne Praisler-Wood FIELD IRONWORKER.RECEIVING LEAD Work Phone: [facility] 07-12-2022 11:50-0500 Body weight 84.19 kg Anne Praisler-Wood FIELD IRONWORKER.RECEIVING LEAD Work Phone: [facility] 07-12-2022 11:50-0500 Diastolic blood pressure 88 mm[Hg] Anne Praisler-Wood FIELD IRONWORKER.RECEIVING LEAD Work Phone: [facility] 07-12-2022 11:50-0500 Heart rate 85 /min Anne Praisler-Wood FIELD IRONWORKER.RECEIVING LEAD Work Phone: [facility] 07-12-2022 11:50-0500 Respiratory rate 18 /min Anne Praisler-Wood FIELD IRONWORKER.RECEIVING LEAD Work Phone: [facility] 07-12-2022 11:50-0500 SaO2% (BldA) [Mass fraction] 98 % Anne Praisler-Wood FIELD IRONWORKER.RECEIVING LEAD Work Phone: [facility] 07-12-2022 11:50-0500 Systolic blood pressure 124 mm[Hg] Anne QuinonezLavelle FIELD IRONWORKER.RECEIVING LEAD Work Phone: [facility] Encounters Encounter Date Encounter Type Care Provider Facility Start: 12-23-2024 End: 12-23-[address] Casey Serrato MD Work Phone: [facility] Work Phone: Start: 12-23-2024 End: 12-23-[address] Casey Serrato MD -Laboratory Work Phone: Start: 12-23-2024 End: 12-23-2024 ambulatory Casey Serrato Facility:[facility] Start: 11-15-2024 End: 11-15-2024 ambulatory CASEY SERRATO Facility:[facility] Start: 11-15-2024 End: 11-15-2024 Patient encounter procedure Estrella Esquivel FIELD IRONWORKER.RECEIVING LEAD Work Phone: [facility] Comment on above: Eye problem (Primary Dx) Start: 03-31-2024 End: 03-31-2024 ambulatory Casey Serrato Facility[place] [place] Start: 10-18-2022 Non-patient / Non-visit Dr. Jeremiah Serrato Work Phone: [facility] Start: 10-18-2022 End: 10-18-2022 Admission to same day surgery center Dr. Casey Serrato Work Phone: [facility] Start: 10-18-2022 End: 10-18-[address] Casey Serrato Work Phone: [facility] Work Phone: Start: 10-05-2022 End: 10-05-2022 Non-patient / Non-visit Dr. Casey Serrato Work Phone: [facility] Start: 09-20-2022 End: 09-20-[address] Casey Serrato Work Phone: [facility] Start: 07-12-2022 End: 07-12-2022 Patient encounter procedure Anne Joseph FIELD IRONWORKER.RECEIVING LEAD Work Phone: [facility] Comment on above: Bacterial sinusitis (Primary Dx) Procedures Date Procedure Procedure Detail Performing Clinician Start: 10-18-2022 Lap Robotic Inguinal Hernia (Left) Dr. Casey Serrato Work Phone: History of appendectomy History of append ectomy Dr. Casey Serrato Work Phone: Plan of Treatment Date Care Activity Detail Author Start: 04-20-2031 Urine microalbumin profile DTaP,Tdap,Td Vaccine (3 - Td or Tdap) [facility] Start: 04-12-2024 Covid-19 Vaccine () Covid-19 Vaccine ( season) [facility] Start: 04-12-2024 Influenza vaccination Influenza Vaccine (#1) [facility] Start: 02-23-2023 Urine microalbumin profile DTAP,TDAP,TD (2 - Td or Tdap) [facility] Start: 10-18-2022 Patient discharge [facility] Start: 04-12-2022 Influenza vaccination INFLUENZA (#1) [facility] Start: 09-23-2021 COVID-19 VACCINE (4 - Booster for Moderna series) COVID-19 VACCINE (4 - Booster for Moderna series) [facility] Start: 08-12-2021 DEPRESSION ASSESSMENT DEPRESSION ASSESSMENT [facility] Start: 2020 COLOGUARD (FIT-DNA) COLOGUARD (FIT-DNA) [facility] Start: 2020 Colonoscopy COLONOSCOPY [facility] Start: 2020 COLORECTAL CANCER SCREENING COLORECTAL CANCER SCREENING [facility] Start: [address] COLONOGRAPHY [facility] Start: 2020 DIABETES SCREEN DIABETES SCREEN [facility] Start: 2020 Diabetes Screening Diabetes Screening [facility] Start: 2020 FECAL OCCULT BLOOD FECAL OCCULT BLOOD [facility] Start: 2020 Screening for malignant neoplasm of colon [facility] Start: 2020 SIGMOIDOSCOPY SIGMOIDOSCOPY [facility] Start: 2010 Lipid panel Lipid Screening [facility] Start: 2010 LIPID SCREEN LIPID SCREEN [facility] Start: 1994 Hepatitis B Vaccine (1 of 3 - 19+ 3-dose series) Hepatitis B Vaccine (1 of 3 - 19+ 3-dose series) [facility] Start: 1993 Anxiety Screening Anxiety Screening [facility] Start: 1993 Depression Screening Depression Screening [facility] Start: 1993 HEPATITIS C SCREENING HEPATITIS C SCREENING [facility] Start: 1993 Hepatitis C screening Hepatitis C Screening [facility] Start: 1993 HIV SCREENING HIV SCREENING [facility] Start: 1993 HIV screening HIV Screening [facility] Start: 1975 HEPATITIS B (1 of 3 - 3-dose series) HEPATITIS B (1 of 3 - 3-dose series) [facility] Patient referral [facility] Work Phone: Immunizations Immunization Date Immunization Notes Care Provider [facility] 05-20-2020 influenza virus vaccine, unspecified formulation Estrella Esquivel APRN.RECEIVING LEAD Work Phone: [facility] 09-16-2019 influenza, injectabl e, quadrivalent, preservative free Dr. Casey Serrato MD Work Phone: [facility] 09-16-2019 influenza, seasonal, injectable Dr. Casey Serrato Work Phone: [facility] 02-23-2013 tetanus toxoid, redu chase diphtheria toxoid, and acellular pertussis vaccine, adsorbed Anne Joseph APRN.CNP Work Phone: [facility] Payers Date Payer Category Payer Self-pay [id number] 2022 Private Health Insurance [id number] 2019 Private Health Insurance [id number] 2012 Unknown [facility] [id number] b Unknown [id number] Unknown [id number] Social History Date Type Detail Facility Start: 07-12-2022 End: 02-06-2023 Tobacco smoking status NHIS Never smoked tobacco [facility] Start: 07-12-2022 Tobacco use and exposure Smokeless tobacco non-user [facility] Start: 07-12-2022 End: 11-15-2024 Alcohol intake Lifetime non-drinker (finding) [facility] Start: 1975 Sex Assigned At Not on file [facility] Start: 07-02-2022 End: 07-12-2022 Exposure to SARS-CoV-2 (event) Not sure [facility] Work Phone: Start: 09-20-2022 Tobacco smoking status NHIS Unknown if ever smoked [facility] Start: 03-30-2021 None [facility] Start: 09-16-2019 Spouse/ Signif icant Other [facility] Start: 03-30-2021 Non-smoker [facility] Start: 1975 Sex Assigned At Male [facility] Start: 07-20-2020 End: 11-15-2024 History of Social function [facility] Start: 07-20-2020 End: 11-15-2024 Tobacco use panel [facility] National Score (1-100), lower number is lower risk Not on file [facility] Medical Equipment Procedure Code Equipment Code Equipment Origin al Text Equipment Identifier Dates MESH,PRO CHIEF PORT DIRECTOR [id number] FDA Start: 10-18-2022 Goals Date Patient Goal Desired Activity /State Functional Status Date Assessment Result Facility 08-21-2014 Are you deaf, or do you have serious difficulty hearing No 08/21/2014 9:11 AM EST Ana Catalan LPN No [facility] 08-21-2014 Are you blind, or do you have serious difficulty seeing, even when wearing glasses No 08/21/2014 9:11 AM EST Ana Catalan LPN No [facility] 08-21-2014 Do you have serious difficulty walking or climbing stairs No 08/21/2014 9:11 AM Ana Wang LPN No [facility] 08-21-2014 Do you have difficul ty dressing or bathing No 08/21/2014 9:11 AM Ana Wang LPN No [facility] 08-21-2014 Because of a physica l, mental, or emotional condition, do you have difficulty doing errands alone such as visiting a physician's office or shopping No 08/21/2014 9:11 AM Ana Wang LPN No [facility] Mental Status Date Assessment Result Facility 10-18-2022 Cognitive function Level Of Cons ciousness Awake;Drowsy [facility] Work Phone: 10-18-2022 Cognitive function Voice/Name [facility] Work Phone: 08-21-2014 Because of a physica l, mental, or emotional condition, do you have serious difficulty concentrating, remembering, or making decisions No 08/21/2014 9:11 AM Ana Wang LPN No [facility] Clinical Notes 07-12-2022 to 11-15-2024 Patient InstructionsEstrella Esquivel APRN.CNP - 11/15/2024 10:11 AM EDT Note Date & Type Note Facility 11-15-2024 Instructions Estrella Esquivel APRN.CNP - 11/15/2024 10:39 AM EDT - Apply erythromycin ointment along the lash line of your left eye twice a day for 7 days. - If you do not notice any improvement within 48 hours or if the condition worsens, start the oral antibiotic as prescribed. documented in this encounter [facility] 11-15-2024 Note HNO ID: [id number] Author: ESTRELLA ESQUIVEL APRN.CNP Service: ? Author Type: Nurse Practitioner Type: Progress Notes Filed: 11/15/2024 10:52 Note Text: [facility] Subjective HPI Rui Tatum is a 49 year old male. Patient presents with: Eye Problem: Left eyelid redness, swelling, sore and itchy x 2 weeks Left Eye Redness and Swelling: - Redness and swelling in the left eye x2 weeks. - Initially thought to be a stye; has had similar episodes in the past that resolved within a couple of days. - Has been using warm compresses and Motrin for pain management. - Noticed significant puffiness this morning, prompting the visit. - Denies fever, chills, pain behind the eye, or changes in vision. - Reports a small bump in the eyelashes, which is the most tender area. Review of Systems Constitutional: (-) fever, (-) chills Eyes: (+) left eye redness, (+) left periorbital edema, (+) left eye pain, (-) visual disturbances Ears/Nose/Mouth/Throat: (-) post nasal drip Objective BP 144/92 (BP Site: Left Arm, BP Position: Sitting) Pulse 66 Temp 36.7 ?C (98.1 ?F) Resp 16 Wt 85 kg (187 lb 6.3 oz) SpO2 98% Physical Exam Constitutional: General: He is not in acute distress. HENT: Head: Normocephalic and atraumatic. Eyes: General: Lids are everted, no foreign bodies appreciated. Vision grossly intact. No allergic shiner. Right eye: No foreign body, discharge or hordeolum. Left eye: Hordeolum present.No foreign body or discharge. Extraocular Movements: Extraocular movements intact. Conjunctiva/sclera: Conjunctivae normal. Pupils: Pupils are equal, round, and reactive to light. Funduscopic exam: Right eye: Red reflex present. Left eye: Red reflex present. Pulmonary: Effort: Pulmonary effort is normal. Musculoskeletal: Cervical back: Normal range of motion and neck supple. Skin: General: Skin is warm and dry. Neurological: Mental Status: He is alert and oriented to person, place, and time. The patient consented to the use of [employer] software for draft documentation of the visit consistent with [facility]?s Notice of Privacy Practices. History and Record Review External record(s) reviewed: prior outpatient record. ASSESSMENT/PLAN: 1. Eye problem - ICD9: V41.1, ICD10: H57.9 Appears to be stye - Apply erythromycin ointment along the lash line of your left eye twice a day for 7 days. - Continue warm compresses - If you do not notice any improvement within 48 hours or if the condition worsens, start the oral antibiotic as prescribed. 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 Pt acknowledged understanding of concepts and follow up plan. Specific signs and symptoms that would indicate the need for higher level of care were discussed in detail warranting prompt ER evaluation. Estrella Esquivel APRN.[facility] 11-15-2024 History of Presen t illness Narrative Images from the original note were not included. [facility] Subjective HPI Rui Tatum is a 49 year old male. Patient presents with: Eye Problem: Left eyelid redness, swelling, sore and itchy x 2 weeks Left Eye Redness and Swelling: - Redness and swelling in the left eye x2 weeks. - Initially thought to be a stye; has had similar episodes in the past that resolved within a couple of days. - Has been using warm compresses and Motrin for pain management. - Noticed significant puffiness this morning, prompting the visit. - Denies fever, chills, pain behind the eye, or changes in vision. - Reports a small bump in the eyelashes, which is the most tender area. Review of Systems Constitutional: (-) fever, (-) chills Eyes: (+) left eye redness, (+) left periorbital edema, (+) left eye pain, (-) visual disturbances Ears/Nose/Mouth/Throat: (-) post nasal drip Objective BP 144/92 (BP Site: Left Arm, BP Position: Sitting) Pulse 66 Temp 36.7 C (98.1 F) Resp 16 Wt 85 kg (187 lb 6.3 oz) SpO2 98% Physical Exam Constitutional: General: He is not in acute distress. HENT: Head: Normocephalic and atraumatic. Eyes: General: Lids are everted, no foreign bodies appreciated. Vision grossly intact. No allergic shiner. Right eye: No foreign body, discharge or hordeolum. Left eye: Hordeolum present.No foreign body or discharge. Extraocular Movements: Extraocular movements intact. Conjunctiva/sclera: Conjunctivae normal. Pupils: Pupils are equal, round, and reactive to light. Funduscopic exam: Right eye: Red reflex present. Left eye: Red reflex present. Pulmonary: Effort: Pulmonary effort is normal. Musculoskeletal: Cervical back: Normal range of motion and neck supple. Skin: General: Skin is warm and dry. Neurological: Mental Status: He is alert and oriented to person, place, and time. The patient consented to the use of [employer] software for draft documentation of the visit consistent with [facility] s Notice of Privacy Practices. History and Record Review External record(s) reviewed: prior outpatient record. ASSESSMENT/PLAN: 1. Eye problem - ICD9: V41.1, ICD10: H57.9 Appears to be stye - Apply erythromycin ointment along the lash line of your left eye twice a day for 7 days. - Continue warm compresses - If you do not notice any improvement within 48 hours or if the condition worsens, start the oral antibiotic as prescribed. 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 Pt acknowledged understanding of concepts and follow up plan. Specific signs and symptoms that would indicate the need for higher level of care were discussed in detail warranting prompt ER evaluation. Estrella Esquivel APRN.EDWINA documented in this encounter [facility] 10-18-2022 Discharge summary Note Date/Time October 18, 2022 11:53am [facility] Medical Records Department [address] [place] [id number] Instructions for Home/Discharge Instructions 10/18/22 1152 MR#: [id number] Acct: [id number] Name: RUI TATUM Marilyn Rep #:[id number] : 1975 47 From: Tre palmer MD PCP: Dr. Casey Serrato MD Status:REG S DC Discharge Instructions Procedure Hernia Diet Discharge Diet: Light diet - advance as tolerated Activity Discharge Activity: May Not Drive (for 2-3 days or while taking narcotic pain meds.) and May Shower (with the bandage in place 1-2 days after surgery.) Lifting Restrictions: 20 pounds for 4 weeks. Additional Activity Instructions:: Climbing stairs is fine, walking is encouraged. Sitting in bed may be uncomfortable. Sitting up using your lateral muscles (sitting up sideways) is usually more comfortable. Do not drive, work heavy equipment of sign legal documents for 24 hours. If your hernia repair was an inguinal repair, you may have scrotal swelling, an ice pack and/or athletic support can provide more comfort. Pain medications may cause nausea, you should typically eat light foods as you take your pain medications. Pain medications may also cause constipation. If you have difficulty with this, discuss with your doctor. Dressing / Incision Call your doctor if your incision/area has: Continuous Slow Oozing, Sudden Increased Bleeding, Increased Pain/ Swelling, Increased Redness and Foul Smelling Discharge Call your doctor if you observe: Fever of 101 or Higher Suture Line Care: Avoid Pulling/Pushing and Avoid Pinching/Bending Remove Dressing in: 2 days (Remove clear bandages in 2 days, remove Steri-Stripsin 7 to 10 days.) Follow Up Care Please Follow Up With: Tre Sharif MD When: Please call to schedule 2 week follow up appointment. [phone] Test Results: Test results from this visit will be discussed in further detail at your follow-up appointment, if applicable. Discharge Plan Admission Attending Provider: Tre Sharif Primary Care Provider: Caesy Serrato Discharge Orders/Prescriptions Prescriptions: New oxycodone 5 mg tablet 5 - 10 mg PO Q6H PRN (Reason: pain) 5 Days Qty: 10 0RF No Action paroxetine HCl 10 MG tablet 10 mg PO DAILY lisinopril 5 mg tablet 5 mg PO DAILY Qty: 90 3RF potassium chloride 20 mEq tablet,ER particles/crystals 20 meq PO DAILY Qty: 90 3RF diltiazem HCl 120 mg capsule,extended release 24hr 120 mg PO DAILY Qty: 90 3RF Referrals / Follow Up: Casey Serrato MD [Primary Care Provider] - Disposition Disposition (needs filled in before D/C Order can be placed): Home, Self Care 10/18/22 1154<Electronically signed by Tre Sharif MD>Tre Sharif MD CC: Dr. Casey Serrato MD ~ Signed [facility] Work Phone: 1(280) 301-796303-09-2023 History and physical note [facility] 18, 20[facility] 10:28am Note Date/Time October 18, 2022 10:2 8am [facility] Medical Records Department [address] [place] [address] History & Physical Exam 10/18/22 1027 MR#: [id number] Acct: [id number] Name: RUI TATUM Rep #:[id number] : 1975 47 From: Tre palmer MD PCP: Dr. Casey Serrato MD Status:REG S DC Location: [place] [address]- History and Physical Date of Admission: 10/18/22 Intake Vital Signs ? 09/20/2314:00 Height 5 ft 8 in Weight: 186 lb BMI 28.3 BP 132/83 H Blood Pressure Location Lt brachial Position Sitting Respiration 16 Pulse 83 Pulse Source Monitor Temp 97.9 F Temp Source Temporal Pulse Oximetry (%) 96 Oxygen Delivery Method room air Intake Visit Reasons:?Inguinal hernia Chief Complaint: L inguinal hernia Cable Swager Required: No Is patient in pain?: No Allergies No Known Allergies Allergy (Verified 09/20/22 15:01) Medications paroxetine HCl 10 mg tablet 10 mg PO DAILY depression 09/16/19 [History Confirmed 09/20/22] lisinopril 5 mg tablet 5 mg PO DAILY #90 tabs 02/13/22 [Rx Confirmed 09/20/22] potassium chloride 20 mEq tablet,extended release(part/cryst) 20 meq PO DAILY #90 tabs 02/13/22 [Rx Confirmed 09/20/22] diltiazem HCl 120 mg capsule,extended release 24 hr 120 mg PO DAILY #90 caps 05/07/22 [Rx Confirmed 09/20/22] PFSH Medical History? Anxiety Atrial fibrillation with RVR Essential hypertension Hypersomnia Paroxysmal a-fib Surgical History? History of appendectomy History of cardioversion (09/16/19) history of finger reattached history of skin graft as a child S/P transesophageal echocardiogram (STEVEN) (09/16/19) Family History? Father Myocardial infarction CAD (coronary artery disease) Stented coronary artery HypertensionMother CAD (coronary artery disease) S/P CABG x 3 Atrial fibrillation Diabetes Social History? Smoking Status:? Never smoker alcohol intake:? current alcohol intake frequency: holidays/special occasions only substance use type:? does not use caffeine:? Yes Type: coffee Number of servings: 1 HPI HPI HPI: Patient has a left inguinal hernia that has been there for at least a few months.? He says it hurts especially when he has to go to the bathroom.? He denies any nausea or vomiting or any symptoms on the right side. ROS General General: No weight change, appetite, fatigue, colon cancer, breast cancer or weakness HEENT HEENT: No difficulty swallowing, eye injury, eye surgery, swollen glands or hoarseness Endo Endocrine: No thyroid disease, diabetes mellitus, thyroid cancer, Hair loss, heat intolerance or cold intolerance Skin Skin: No rash or changing moles Musc Musculoskeletal: No back problems, arthritis, rheumatoid arthritis, gout or joint pain Cardio Cardiovascular: Yes atrial fibrillation and high blood pressure; No murmur, pacemaker, heart disease, heart attack, heart stent, palpitations, shortness of breat with exertion or chest pain Psych Psychiatric: Yes anxiety; No depression or hearing voices Resp Respiratory: No shortness of breath, Yes sleep apnea, No cough, No COPD, No asthma, No emphysema and No wheezing Gastro Gastrointestinal: No abdominal pain, No nausea or vomiting, No diarrhea, No constipation, No blood in stool, Yes acid reflux, No hemorrhoids, No ulcers, No gallbladder problem and No black,tarry stools Kiran Hematologic: No blood thinners, No blood disorders, No bleeding, No anemia and No blood clots Neuro Neurologic: No system reviewed and no additional complaints, except as documented, No as per HPI, No abnormal gait, No abnormal hearing, No abnormal movements, No abnormal speech, No behavioral changes, No burning sensations, No confusion, No convulsions, No disequilibrium, No dizziness, No localized weakness, No frequent falls, No headache(s), No lack of coordination, No loss ofvision, No memory loss, No numbness, No other visual disturbances, No radicular pain, No restless legs, No sensory deficit, No syncope, No tingling, No tremor(s), No weakness and No other Exam Const General: cooperative Orientation: alert and oriented x3 HENMT Head: normal to inspection Neck Neck: normal visual inspection and full ROM Chest Chest palpation & inspection: normal inspection of the chest Resp Effort & Inspection: normal respiratory effort Auscultation: clear to auscultation bilaterally Cardio Rate: regular rate Rhythm: regular rhythm GI Inspection: non-distended Palpation: soft, hernia indirect inguinal on the left and nontender Skin General: no rashes or lesions noted Neuro General: patient alert and patient oriented x3 Extrem General: full ROM Psych Appearance: grossly normal Mental Status: mental status grossly normal Assessment and Plan Assessment and Plan (1) Left inguinal hernia: ?Status:?Acute ?Plan: The patient has a left inguinal hernia which hurts him when he needs to go to the bathroom.? It is reducible.? I discussed robotic assisted left inguinal hernia repair with mesh.? I discussed mesh placement as well as the risks of bleeding, infection, injury to other organs such as the bowel, bladder, ureter or blood supply to the testicle.? Patient understands the risks and is willing proceed with robotic assisted laparoscopic left inguinal hernia repair with mesh.? I discussed fixing the contralateral side if there is a hernia present hewould like this fixed if there is a hernia on the right. Tre Sharif MD Pager: [facility] [address] [place] [address], [address] [place] [phone] Office: I have examined the patient and the H&P has been reviewed. There are no clinicalchanges since date of exam. 10/18/22 1028 <Electronically signed by Tre Sharif MD> Cosigner Signature (if applicable): CC: Dr. Tre Sharif MD; Dr. Casey Serrato MD~ Signed [facility] Work Phone: 1(704) 413-129803-09-2023 Procedure [facility] 07-12-2022 History of Present illness Narrative* Anne Joseph APRN.RECEIVING LEAD - 07/12/2022 12:10 PM EST Subjective Cough Associated symptoms include headaches. Pertinent negatives include no chills, no ear pain, no sore throat, no myalgias and no shortness of breath. Rui Tatum is a 46 year old male who presents with sinus congestion, cough, sinus pain, headache for the past week. He has been using Afrin and taking Mucinex. He did a COVID test a few days ago which was negative. He notes increased headache pain when he bends over. Review of Systems Constitutional: Negative for chills and fever. HENT: Positive for congestion and sinus pain. Negative for ear pain and sore throat. Respiratory: Positive for cough. Negative for shortness of breath. Cardiovascular: Negative. Musculoskeletal: Negative for myalgias. Neurological: Positive for headaches. BP 124/88 Pulse 85 Temp 36.3 C (97.4 F) Resp 18 Wt 84.2 kg (185 lb 9.6 oz) SpO2 98% PAST MEDICAL HISTORY Diagnosis Date NEGATIVE MEDICAL HISTORY No past surgical history on file. ALLERGIES Patient has no known allergies. MEDICATIONS lisinopril (ZESTRIL, PRINIVIL) 5 mg tablet CARTIA XT 120 mg 24 hr capsule potassium chloride ER (K-DUR, KLOR-CON) 20 mEq tablet PARoxetine (PAXIL) 10 mg tablet Take 1 tablet by mouth once daily. amoxicillin-clavulanic acid (AUGMENTIN) 875-125 mg per tablet Take 1 tablet by mouth twice daily for 7 days. tamsulosin ER (FLOMAX) 0.4 mg cp24 Take 1 capsule by mouth once daily. ciprofloxacin HCl (CIPRO) 500 mg tablet Take 500 mg in office prior to procedure-to be administeredper clinical support. No family history on file. Social History Tobacco Use Smoking status: Never Smokeless tobacco: Never Substance Use Topics Alcohol use: Never Drug use: Never Objective Physical Exam Vitals and nursing note reviewed. Constitutional: Appearance: Normal appearance. HENT: Right Ear: Tympanic membrane, ear canal and external ear normal. Left Ear: Tympanic membrane, ear canal and external ear normal. Nose: Nasal tenderness, mucosal edema, congestion and rhinorrhea present. Mouth/Throat: Pharynx: Uvula midline. No oropharyngeal exudate or posterior oropharyngeal erythema. Cardiovascular: Rate and Rhythm: Normal rate and regular rhythm. Heart sounds: Normal heart sounds. Pulmonary: Effort: Pulmonary effort is normal. No respiratory distress. Breath sounds: Normal breath sounds. No wheezing or rales. Musculoskeletal: Cervical back: Neck supple. Lymphadenopathy: Cervical: No cervical adenopathy. Skin: General: Skin is warm and dry. Findings: No erythema or rash. Neurological: Mental Status: He is alert. ASSESSMENT/PLAN: 1. Bacterial sinusitis - ICD9: 473.9, 041.9, ICD10: J32.9, B96.89 - Will begin treatment with as per antibiotic as written, see orders - The patient should also be given flonase nasal spray for the first 5-7 days of treatment. Afrin is not recommended to relieve nasal congestion. - Supportive care with plenty of fluids, rest, and analgesia prn. - AMOXICILLIN 875 MG-POTASSIUM CLAVULANATE 125 MG TABLET - Follow-up with your PCP in 3-5 days if symptoms have not improved or sooner if symptoms worsen - Discussed red flags and need for immediate medical evaluation if any occur. - Discussed supportive care treatment with fluids, rest and analgesia. - Discussed expected course of illness Anne Joseph APRN.CNP [facility] Instructions* Patient Instructions* Anne Joseph APRN.CNP - 07/12/2022 12:09 PM EST Images from the original note were not included. ASSESSMENT/PLAN: 1. Bacterial sinusitis - ICD9: 473.9, 041.9, ICD10: J32.9, B96.89 - Will begin treatment with as per antibiotic as written, see orders - The patient should also be given flonase nasal spray for the first 5-7 days of treatment. Afrin is not recommended to relieve nasal congestion. - Supportive care with plenty of fluids, rest, and analgesia prn. - AMOXICILLIN 875 MG-POTASSIUM CLAVULANATE 125 MG TABLET - Follow-up with your PCP in 3-5 days if symptoms have not improved or sooner if symptoms worsen - Discussed red flags and need for immediate medical evaluation if any occur. - Discussed supportive care treatment with fluids, rest and analgesia. - Discussed expected course of illness Anne Praisler-Wood, FIELD IRONWORKER.RECEIVING LEAD Adult Sinusitis Patient Education What is Sinusitis? Sinusitis [jcyv-zxb-emaf-tis] is inflammation of the sinuses or swelling of the lining of the sinus cavity or nose. During an infection the sinuses become blocked with fluid causing swelling of the lining of the sinuses. Symptoms: (viral and bacterial infections) Stuffy nose Runny nose Postnasal drip Fever Toothache Headache Tiredness Cough Sore throat Face and head pressure and or pain Common causes: 98% of sinus infections are viral caused by viruses. Risk Factors of Sinusitis Include: Allergies, air pollution, indoor humidity and outdoor temperature changes, andstructural changes inthe nose may contribute to sinus pain, pressure and congestion. When to get help? Temperature greater than 100.4 F Symptoms lasting more than 10 days or worsening symptoms greater than 7-10 days. If you do not improve or worsen after a course of antibiotics, you should be re-examined. Diagnosis and Treatment: Your healthcare provider will ask a number of questions about your symptoms and how long they have occurred. If symptoms of sinusitis persist greater than 10 days, it is possible you have a bacterial sinus infection and an antibiotic is prescribed. If it is viral, antibiotics will not help. You may be instructed to take fudp-nso-vwwhwpj medications for symptoms. including fever reducers acetaminophen or ibuprofen, nasal saline spray, cough and cold preparations and decongestants as prescribed by the physician, nurse practitioner or physician personal banking assistant. Self-Care and Prevention: Rest Fluids for hydration Good hand washing Humidifier Avoid smoking and exposure to second hand smoke Avoid sick contacts [facility] Diagnosis Bacterial sinusitis- Primary Unspecified sinusitis (chronic) documented in [facility] note* Diagnosis Onset Date Resolution Status Left inguinal hernia acute [facility] Work Phone: Evaluation note* Diagnosis Eye problem- Primary Other eye problems documented in [facility] encounter [facility] noteNo assessment information availableWKettering Health [facility] Work Phone: Reason for referral (narrative)No reason for referral information availableWKettering Health [facility] Work Phone: Chief Complaint and Reason for Visit Chief Complaint Inguinal hernia PREOP robotic lt poss bilateral inguinal hernia robotic lt poss bilateral inguinal hernia Reason for Visit Left inguinal hernia Family History No Family History Records Found Relationship Condition Age at Onset Recorded Date/T gonzalo father Myocardial infarction Unknown Coronary artery disease Unknown Presence of stent in coronary artery Unkn own Hypertension Unknown mother Coronary artery disease Unknown Status post three ve ssel coronary artery bypass Unknown Atrial fibrillation Unknown Diabetes mellitus Unknown Advance Directives No Advanced Directives Records Found Advance Directive Response Recorded Date/ Time Living Will No September 16 2:14am Power of Hvac Residential Service Technician No September 16, 2019 2:14am Summary Purpose Additional Source Comments Source Comments (unrecognize d section and content) In the event this informatio n is protected by the Federal Confidentiality of Alcohol and Drug Abuse Patient Records regulations: The Federal rules restrict any use of the information to criminally investigate or prosecute any alcohol or drug abuse patient.[facility] the event this information is protected by the Federal Confidentiality of Alcohol and Drug Abuse Patient Records regulations: The Federal rules restrict any use of the information to criminally investigate or prosecute any alcohol or drug abuse patient.[facility] Reason for Visit (unrecogniz ed section and content) Reason Comments Cough Pt reported nasal co ngestion, Smith, x1 wk. Reason Comments Eye Problem Left eyelid redness, swelling, sore and itchy x 2 weeks Care Teams (unrecognized sec tion and content) Military Source Operations Specialist Relationship Specialty Start Date End Date Casey Serrato MD [address] [place] [address] PCP - General Family Medicine 07/12/22 Team Status: Active Member Role Status Dates Dr. Parveen Feng MD Family Provider Active Dr. Casey Serrato MD Primary Care Provider Active Team Status: Inactive Member Role Status Dates Dr. Casey Serrato MD Primary Care Provider, Referring Provider Active Dr. Tre Sharif MD Attending Provider Active Team Status: Active Member Role Status Dates Dr. Casey Serrato MD Primary Care Provider Active Dr. Víctor Mac MD Attending Provider Active Dr. Tre Sharif MD Referring Provider Active Team Status: Active Member Role Status Dates Dr. Casey Serrato MD Primary Care Provider Active Dr. Tre Sharif MD Attending Pr ovider, Referring Provider, Other Provider Active Team Status: Inactive Member Role Status Dates Dr. Casey Serrato MD Primary Care Provider Active Dr. Tre Sharif MD Attending Provider, Referr ing Provider Active Military Source Operations Specialist Relationship Specialty Start Date End Date Casey Serrato MD [address] [facility] [address] [place] [address] PCP - General Family Medicine 07/12/22 Team Status: Active Member Role Status Dates Dr. Casey Serrato MD Primary Care Provider Active Team Status: Inactive Member Role Status Dates Dr. Casey Serrato MD Primary Care Provider Active Start: December 23, 2024 End: December 23, 2024 Dr. Casey Serrato MD Attending Provider Active Start: December 23, 2024 End: December 23, 2024 Dr. Casey Serrato MD Referring Provider Active Start: December 23, 2024 End: December 23, 2024 (unrecognized sect ion and content) No Status Records FoundNo Status Records Found INFORMATION SOURCE (unrecogn ized section and content) DATE CREATED AUTHOR 11/16/2024 [facility] DATE CREATED AUTHOR AUTHOR'S ORGANIZ ATION 12/29/[address] [facility] Goals (unrecognized section and content) Goals may be documented in a n alternate section FOR RECORDS PERTAINING TO PATIENTS WHO ARE OR HAVE BEEN ENROLLED IN A CHEMICAL DEPENDENCY/SUBSTANCEABUSE PROGRAM, SOME INFORMATION MAY BE OMITTED. This clinical summary was aggregated from multiple sources. Caution should be exercised in using it in the provision of clinical care. This summary normalizes information from multiple sources, and as a consequence, information in this document may materially change the coding, format and clinical context of patient data. In addition, data may be omitted in some cases. CLINICAL DECISIONS SHOULD BE BASED ON THE PRIMARY CLINICAL RECORDS. [facility] [employer] [facility]. provides no warranty or guarantee of the accuracy or completeness of information in this document.
[2025-04-02 01:22] LABS: Hematocrit 42.9 % (40-54); Hemoglobin 15.0 g/dL (13.0-16.5); Immature Granulocytes Count 0.030 X10^3/uL (0.0-0.0); Mean Corp Hgb Conc 35.0 g/dL (32-36); Mean Corpuscular Volume 91.3 fL (80-94); Mean Platelet Vol. 10.0 fl (6.2-12.0); NRBC Flagged by Analyzer 0 % (0-5); Platelet Count 206 K/mm3 (150-450); RBC Distribution Width CV 12.1 % (11.6-14.6); RBC Distribution Width SD 40.1 fl (35.1-43.9); Red Blood Count 4.70 M/mm3 (4.6-6.2); White Blood Count 5.8 K/mm3 (4.4-11.0)
[2025-04-02] MEDS: 0.9% Normal Saline (1000mL) 1,000 ML 999 ML IV ×2 (01:37→03:39)
--- NOTE | 2025-04-02 01:42 | EKG12_ITS ---
Test Reason : RHYTHM CONVERSION Blood Pressure : */* mmHG Vent. Rate : 67 BPM Atrial Rate : 67 BPM P-R Int : 178 ms QRS Dur : 98 ms QT Int : 390 ms P-R-T Axes : 37 10 7 degrees QTcB Int : 412 ms Normal sinus rhythm Normal ECG Confirmed by BIENVENIDO AYALA, ARLENE ([id number]), film editor supervisor RAHEEM JONES ([id number]) on 04/05/2025 7:29:48 AM Referred By: Confirmed By: ARLENE FARIA MD
[2025-04-02 01:52] LABS: Anion Gap 12 (5-15); BUN 20 mg/dL (4-19); BUN/Creat Ratio 16.3 RATIO (10-20); Calcium,Total 8.8 mg/dL (7.6-11.0); Carbon Dioxide 21.0 mmol/L (21.0-32.0); Chloride 108 mmol/L (98-108); Estimated Creatinine Clearance 74.46 ml/min (50-250); Glucose 92 mg/dL (70-99); Magnesium 2.3 mg/dL (1.5-2.2); Potassium 4.0 mmol/L (3.3-5.1)
--- NOTE | 2025-04-02 02:03 | EDS_ITS ---
HPI History of Present Illness Chief Complaint: Palpitations Informant: patient and spouse/S.O. Narrative Narrative: Patient is a 49-year-old male with past medical history of hypertension and paroxysmal atrial fibrillation. He states he is on Cardizem for this and has been taking as directed. He states that he goes into atrial fibrillation so rarely that he is not on anticoagulation. He reports that this evening around 10/10:30 he suddenly began to feel his heart racing and skipped beats. He states it felt just like his previous episodes of atrial fibrillation. He denies any excessive stimulant use or illicit drug use. He states that there has been no sick symptoms such as nausea vomiting or diarrhea. He denies any loss of blood. He states there has been no alcohol use or binges. He states he waited roughly 2 hours to see if he would convert out of it but has not done so and therefore comes in for evaluation. [facility] Medical History Anxiety Alcohol use Migraine headache Heartburn CPAP (continuous positive airway pressure) dependence Hypertension History of stress test History of echocardiogram H/O transesophageal echocardiography (STEVEN) for monitoring Cardiology follow-up encounter History of atrial fibrillation Essential hypertension Hypersomnia Atrial fibrillation with RVR Paroxysmal a-fib Anxiety Home Medications ?Medication ?Instructions ?Recorded ?Last Taken ?Type lisinopril 5 mg tablet 5 mg PO DAILY #90 TABLETS Unknown Rx potassium chloride 20 mEq 20 meq PO DAILY #90 TABLETS 11/09/24 Unknown Rx tablet,extended release(part/cryst) diltiazem HCl 120 mg See Rx Instructions .Route 0 01/25/25 Unknown Rx capsule,extended release 24 hr .COMPLEX #90 caps Allergy/AdvReac Type Severity Reaction Status Date / Time No Known Allergies Allergy Verified 04/02/25 00:55 Family History (Updated 03/31/24 @ 15:16 by Raymond Bah BILLING ADJUDICATOR, BILLING ADJUDICATOR-C) Father Myocardial infarction CAD (coronary artery disease) early 50s Stented coronary artery Hypertension Mother CAD (coronary artery disease) early 50s S/P CABG x 3 Atrial fibrillation Diabetes Surgical History history of skin graft as a child history of finger reattached History of appendectomy History of cardioversion (09/16/19) S/P transesophageal echocardiogram (STEVEN) (09/16/19) Social History Smoking Status: Never smoker alcohol intake: current alcohol intake frequency: holidays/special occasions only substance use type: does not use caffeine: Yes Type: coffee Number of servings: 1 ROS ROS ED Constitutional Constitutional ED: Denies chills or fever(s) Eyes Eyes: Denies blurry vision or change in vision ENT ENT ED: Denies sore throat Cardiovascular Cardiovascular: Reports palpitations and racing heartbeat; Denies chest pain Respiratory/Chest Respiratory/Chest: Denies cough or dyspnea Gastrointestinal Gastrointestinal: Denies abdominal pain, diarrhea, nausea or vomiting Genitourinary Genitourinary ED: Denies dysuria or hematuria Musculoskeletal Musculoskeletal: Denies myalgias Integumentary Denies rash Neurologic Neurologic: Denies headache(s) Hematologic/Lymphatic Hematologic/Lymphatic: Denies easy bleeding or easy bruising EXAM Physical Exam Const Vital Signs: 04/02/25 00:55 04/02/25 01:06 04/02/25 01:38 Temperature 97.6 F L Temperature Source Oral Pulse Rate 120 H 91 Pulse Rate [1 (Initial Baseline)] Pulse Rate [2] Pulse Rate [3] Pulse Rate [4] Respiratory Rate 19 H Respiratory Rate [1 (Initial Baseline)] Respiratory Rate [2] Respiratory Rate [3] Respiratory Rate [4] Respiratory Effort Normal Blood Pressure 142/84 H 120/82 H Blood Pressure [1 (Initial Baseline)] Blood Pressure [4] Blood Pressure Mean 103 94 Baseline BP Pulse Ox 99 Oxygen Delivery Method Room Air Oxygen Delivery Method [1 (Initial Baseline)] Oxygen Delivery Method [2] Oxygen Delivery Method [3] Oxygen Delivery Method [4] Oxygen Flow Rate (L/min) Oxygen Flow Rate (L/min) [2] Oxygen Flow Rate (L/min) [3] Oxygen Flow Rate (L/min) [4] EtCo2 - Document during CPR and with ROSC EtCo2 - Document during CPR and with ROSC [1 (Initial Baseline)] EtCo2 - Document during CPR and with ROSC [2] EtCo2 - Document during CPR and with ROSC [3] EtCo2 - Document during CPR and with ROSC [4] 04/02/25 01:50 04/02/25 02:00 04/02/25 03:00 Temperature Temperature Source Pulse Rate 83 86 67 Pulse Rate [1 (Initial Baseline)] Pulse Rate [2] Pulse Rate [3] Pulse Rate [4] Respiratory Rate 18 16 18 Respiratory Rate [1 (Initial Baseline)] Respiratory Rate [2] Respiratory Rate [3] Respiratory Rate [4] Respiratory Effort Blood Pressure 111/84 H 113/87 H 111/85 H Blood Pressure [1 (Initial Baseline)] Blood Pressure [4] Blood Pressure Mean 93 95 93 Baseline BP Pulse Ox 98 98 98 Oxygen Delivery Method Room Air Room Air Room Air Oxygen Delivery Method [1 (Initial Baseline)] Oxygen Delivery Method [2] Oxygen Delivery Method [3] Oxygen Delivery Method [4] Oxygen Flow Rate (L/min) Oxygen Flow Rate (L/min) [2] Oxygen Flow Rate (L/min) [3] Oxygen Flow Rate (L/min) [4] EtCo2 - Document during CPR and with ROSC EtCo2 - Document during CPR and with ROSC [1 (Initial Baseline)] EtCo2 - Document during CPR and with ROSC [2] EtCo2 - Document during CPR and with ROSC [3] EtCo2 - Document during CPR and with ROSC [4] 04/02/25 03:09 04/02/25 03:31 04/02/25 03:31 Temperature 97.9 F Temperature Source Pulse Rate 81 Pulse Rate [1 (Initial Baseline)] 81 Pulse Rate [2] 78 Pulse Rate [3] 65 Pulse Rate [4] 65 Respiratory Rate 18 Respiratory Rate [1 (Initial Baseline)] 18 Respiratory Rate [2] 18 Respiratory Rate [3] 18 Respiratory Rate [4] 18 Respiratory Effort Blood Pressure 126/99 H Blood Pressure [1 (Initial Baseline)] 126/99 H Blood Pressure [4] 107/81 H Blood Pressure Mean Baseline BP 126/99 Pulse Ox 99 Oxygen Delivery Method Room Air Oxygen Delivery Method [1 (Initial Baseline)] Room Air Oxygen Delivery Method [2] Nasal Cannula Oxygen Delivery Method [3] Nasal Cannula Oxygen Delivery Method [4] Nasal Cannula Oxygen Flow Rate (L/min) Oxygen Flow Rate (L/min) [2] 2 Oxygen Flow Rate (L/min) [3] 2 Oxygen Flow Rate (L/min) [4] 2 EtCo2 - Document during CPR and with ROSC 40 38 EtCo2 - Document during CPR and with ROSC [1 (Initial Baseline)] 38 EtCo2 - Document during CPR and with ROSC [2] 39 EtCo2 - Document during CPR and with ROSC [3] 37 EtCo2 - Document during CPR and with ROSC [4] 37 04/02/25 03:45 Temperature Temperature Source Pulse Rate 67 Pulse Rate [1 (Initial Baseline)] Pulse Rate [2] Pulse Rate [3] Pulse Rate [4] Respiratory Rate 16 Respiratory Rate [1 (Initial Baseline)] Respiratory Rate [2] Respiratory Rate [3] Respiratory Rate [4] Respiratory Effort Blood Pressure 108/81 H Blood Pressure [1 (Initial Baseline)] Blood Pressure [4] Blood Pressure Mean Baseline BP Pulse Ox 98 Oxygen Delivery Method Room Air Oxygen Delivery Method [1 (Initial Baseline)] Oxygen Delivery Method [2] Oxygen Delivery Method [3] Oxygen Delivery Method [4] Oxygen Flow Rate (L/min) 0 Oxygen Flow Rate (L/min) [2] Oxygen Flow Rate (L/min) [3] Oxygen Flow Rate (L/min) [4] EtCo2 - Document during CPR and with ROSC 42 EtCo2 - Document during CPR and with ROSC [1 (Initial Baseline)] EtCo2 - Document during CPR and with ROSC [2] EtCo2 - Document during CPR and with ROSC [3] EtCo2 - Document during CPR and with ROSC [4] Positive well nourished and well developed General Appearance ED: well developed; Negative for pallor HEENT HEENT Narrative: Normocephalic atraumatic Mallampati score of 2 Eyes PERRL and EOMs intact bilaterally General Eye ED: Negative for pale conjunctiva or scleral icterus Neck supple and no JVD Chest Wall palpation of chest normal Resp normal respiratory effort and clear to auscultation bilaterally Cardio Rate: other Other Details: Irregularly irregular rhythm with slightly tachycardic rate consistent with atrial fibrillation with rapid ventricular response GI normal to inspection, nondistended, normoactive bowel sounds, non-tender, non- distended and no masses Auscultation: normoactive bowel sounds Palpation: soft Extremity normal to inspection Extremity Narrative: No asymmetric edema no pitting edema negative Homans' sign bilaterally Neuro oriented x3, CN's II-XII intact bilaterally and no sensory deficits noted Sensorium / Orientation: alert Motor Exam: strength 5/5 throughout Psych mental status grossly normal Skin no rashes or lesions noted General Skin Exam: Negative for jaundice or pallor MDM MDM MDM Narrative Medical decision making narrative: Patient arrived to the ER technically in A-fib with RVR as his heart rate was approximately 120. He has a known history of this and is on Cardizem. He states he has been taking as directed. He denies any symptoms such as vomiting or diarrhea which could lead to dehydration or electrolyte abnormality. He denies any excessive stimulant use or illicit drug use or alcohol use which could have precipitated atrial fibrillation as well. In order to rule out MALENA or electrolyte abnormality or acute blood loss anemia or thyroid disorder I did check basic lab. Labs revealed no clinically significant findings. He was given Lopressor as he had a breakthrough event of A-fib despite taking his Cardizem. The Lopressor reduced his heart rate to approximately 65 but despite the reduction in rate he remained in atrial fibrillation. I discussed with patient that at this time he is hemodynamically stable and his A-fib is known. Therefore we have the option of continuing his diltiazem and adding Eliquis and he can follow-up with the frame gate mortiser operator and hope that there is spontaneous cardioversion while waiting for the appointment. Other option is to perform a synchronized cardioversion at this time as he is only been in atrial fibrillation for a few hours the chance of a clot development is extremely low. Patient states he has been through the cardioversion in the past and would prefer that that be performed at this time to convert him out of A-fib as he does not want to use anticoagulation. Therefore the patient was cardioverted as documented below. He had returned to normal sinus rhythm and his vitals remained stable and therefore he is otherwise safe for discharge Patient was given a total of 50 mg of propofol and 2.5 mg of Versed. Following conscious sedation the patient underwent synchronized cardioversion at 100 J. After 1 synchronized cardioversion the patient converted to normal sinus rhythm. This was confirmed by twelve-lead EKG. patient tolerated procedure well without complication History & Record Review Discussion w/independent historian: Patient and Significant other Lab Data Attestation: I reviewed the patient's lab results. Labs: Laboratory Results - last 24 hr 04/02/25 01:00 WBC 5.8 RBC 4.70 Hgb 15.0 Hct 42.9 MCV 91.3 MCH 31.9 MCHC 35.0 RDW Std Deviation 40.1 RDW Coeff of Harvey 12.1 Plt Count 206 MPV 10.0 Immature Gran % (Auto) 0.500 Neut % (Auto) 46.6 L Lymph % (Auto) 41.3 H Rapides % (Auto) 9.5 Eos % (Auto) 1.2 Baso % (Auto) 0.9 Absolute Neuts (auto) 2.7 Absolute Lymphs (auto) 2.40 Nucleated RBC % 0 Sodium 141 Potassium 4.0 Chloride 108 Carbon Dioxide 21.0 Anion Gap 12 BUN 20 H Creatinine 1.20 Estim Creat Clear Calc 74.46 Est GFR (MDRD) Non-Af 74 BUN/Creatinine Ratio 16.3 Glucose 92 Calcium 8.8 Magnesium 2.3 H TSH 2.820 Procedures Procedural Sedation 1 (Initial Baseline): Consent Signed: Yes Any Problems With Anesthesia: No You/Your family experience fever (hyperthermia) w/anesthesia: No Sedation medication: Propofol Dose: 50 Route: IV Maliampati Score: Class II ASA Classification: II Discharge Plan Triage Chief Complaint: Palpitations ED Provider: Delroy Muhammad Dx/Rx/DC Orders Clinical Impression: Atrial fibrillation with RVR, Hypertension Instructions: AFib Dc Prescriptions: No Action potassium chloride 20 mEq tablet,ER particles/crystals 20 meq PO DAILY Qty: 90 3RF lisinopril 5 mg tablet 5 mg PO DAILY Qty: 90 3RF diltiazem HCl 120 mg capsule,extended release 24hr See Rx Instructions .ROUTE .COMPLEX Qty: 90 3RF Dose Instruction: TAKE 1 CAPSULE BY MOUTH DAILY Rx Instructions: TAKE 1 CAPSULE BY MOUTH DAILY Primary Care Provider: Casey Pillai Referrals: Víctor Mac MD [Med Staff - Active Staff] - Casey Pillai MD [Primary Care Provider] - Activity Restrictions/Additional Instructions: You are now back in normal sinus rhythm following synchronized cardioversion. Please continue all your home medications as directed by your doctor. Follow-up with the frame gate mortiser operator for repeat evaluation and return to the ER should you have any further concerns Print Language: Mongolian Disposition Disposition: Home, Self Care
[2025-04-02] MEDS: Midazolam 5 MG/ML Syringe IV (03:34)
--- NOTE | 2025-04-02 03:54 | EKG12_ITS ---
Test Reason : PALPITATIONS Blood Pressure : */* mmHG Vent. Rate : 106 BPM Atrial Rate : * BPM P-R Int : * ms QRS Dur : 98 ms QT Int : 332 ms P-R-T Axes : * 27 17 degrees QTcB Int : 441 ms Atrial fibrillation with rapid ventricular response Nonspecific T wave abnormality Abnormal ECG Confirmed by BIENVENIDO AYALA, ARLENE ([id number]), development editor RAHEEM JONES ([id number]) on 04/05/2025 7:29:38 AM Referred By: GIOVANY Confirmed By: ARLENE FARIA MD
== END 2025-04-02 04:22 | disposition home or self-care (01) ==
PROVIDERS: Emergency Provider Emergency Medicine; PCP Family Medicine; Visit Provider Emergency Medicine
DX: I48.0 Paroxysmal atrial fibrillation (principal); I10 Essential (primary) hypertension; Z79.899 Other long term (current) drug therapy; Z79.01 Long term (current) use of anticoagulants
CPT/HCPCS: 80048; 83735; 84443; 85025; 92960; 93005; 96361; 96374; 96375; 96376; 99284; A4216

== ENCOUNTER → 2025-06-28 | Outpatient (CLI) | payer OTHER, SELFPAY ==
--- NOTE | 2025-06-28 07:47 | ECHOD_ITS ---
Reason For Study Reason For Study: AFib/Flutter Procedure This was a 2D Doppler, Color Flow transthoracic echocardiogram. Exam performed in department. Left Ventricle Normal LV size. The left ventricular ejection fraction is 60 %. Stage 1 diastolic dysfunction. No regional wall motion abnormalities noted. Right Ventricle Normal RV size. Normal systolic function. Atria Normal left atrium. Normal right atrium. Mitral Valve Normal mitral valve. Tricuspid Valve Normal tricuspid valve. Mild (1+) tricuspid valve insufficiency. Pulmonary artery systolic pressure is 22 mmHg. Aortic Valve Normal aortic valve. Trisinus/trileaflet aortic valve. Pulmonic Valve Normal pulmonic valve. Great Vessels Normal aortic root. The pulmonary artery is normal size. Inferior vena cava collapse with respiration. Pericardium/Pleural No pericardial effusion. MMode/2D Measurements & Calculations LVIDd: 4.3 cm IVSd: 0.79 cm Ao root diam: 3.4 cm LVIDs: 2.9 cm LVPWd: 0.92 cm RVDd: 3.6 cm FS: 33.2 % LAV(MOD-bp): 31.4 ml LVAd ap4: 28.4 cm2 SV(MOD-sp4): 46.2 ml LAV(MOD-bp) Indexed: 15.9 ml/m2 LVLd ap4: 8.8 cm SI(MOD-sp4): 23.4 ml/m2 LAV(MOD-sp2): 34.6 ml EDV(MOD-sp4): 75.9 ml LAV(MOD-sp4): 28.5 ml EDV(sp4-el): 77.7 ml LVAs ap4: 15.9 cm2 LVLs ap4: 7.5 cm ESV(MOD-sp4): 29.7 ml ESV(sp4-el): 28.7 ml EF(MOD-sp4): 60.9 % EF(sp4-el): 63.1 % SV(sp4-el): 49.1 ml LA A4 area: 13.1 cm2 LA dimension(2D): 3.4 cm RA A4 area: 11.9 cm2 TAPSE: 1.7 cm Time Measurements MV dec time: 0.25 sec Doppler Measurements & Calculations MV E max jose alfredo: 52.4 cm/sec Lat Peak E' Jose Alfredo: 13.5 cm/sec Med Peak E' Jose Alfredo: 10.5 cm/sec MV A max jose alfredo: 61.6 cm/sec E/E' lat: 3.9 E/E' med: 5.0 MV E/A: 0.85 MV V2 max: 79.6 cm/sec MV P1/2t max jose alfredo: 57.6 cm/sec Ao V2 max: 112.9 cm/sec MV max P.5 mmHg MV P1/2t: 84.5 msec Ao max P.1 mmHg MV V2 mean: 38.0 cm/sec Ao V2 mean: 78.0 cm/sec MV mean P.68 mmHg MV dec slope: 199.6 cm/sec2 Ao mean P.8 mmHg MV V2 VTI: 21.4 cm MVA(P1/2t): 2.6 cm2 Ao V2 VTI: 23.8 cm AV (velocity ratio): 0.77 LV V1 max: 91.8 cm/sec PA V2 max: 102.6 cm/sec TR max jose alfredo: 215.9 cm/sec LV V1 max P.4 mmHg PA V2 mean: 67.4 cm/sec TR max P.6 mmHg LV V1 mean P.0 mmHg LV V1 mean: 65.7 cm/sec LV V1 VTI: 18.2 cm ECHO/Echo Complete Interpretation Summary The left ventricular ejection fraction is 60 %. Normal LV size. Stage 1 diastolic dysfunction. Pulmonary artery systolic pressure is 22 mmHg. Ordering Physician: Víctor Mac Referring Physician: Víctor Mac Performed By: Camilo Wilcox RCS
--- OUTSIDE RECORDS SUMMARY | 2025-06-28 08:05 | XMS RPT_ITS | CCD ---
Author Organization [facility] CliniSywy Care Team Providers Care Home [facility] Home [facility] Aides Teacher Name Role Phone Casey Serrato MD Primary Care Provider Dr. Casey Serrato Primary Care Provider Dr. Casey Serrato Referring Provider Dr. Tre Sharif Attending Provider Dr. Víctor Mac Attending Provider Dr. Tre Sharif Referring Provider Dr. Tre Sharif Other Provider Casey Serrato MD Primary Care Provider CASEY SERRATO Primary Care Unavailable Rosas AYALA, Dr. Peña Primary Care Provider Dr. Casey Serrato MD Attending Provider Dr. Casey Serrato MD Referring Provider Dr. Delroy Muhammad DO Emergency Provider Dr. Casey Serrato MD Primary Care Physician Dr. Delroy Muhammad DO Attending Physician Dr. Delroy Muhammad DO Emergency Department Physic guilherme Dr. Casey Serrato MD Referring Provider Bubba AYALA, Dr. Renee Attending Physician Casey eSrrato Referring Unavailable Víctor Mac Attending Unavailable Casey Serrato Primary Care Unavailable Delroy Muhammad Attending Unavailable Casey Serrato Primary Care Unavailable Casey Serrato Primary Care Unavailable Tre Sharif Attending Unavailable Víctor Mac Attending Unavailable Víctor Mac Referring Unavailable Casey Serrato Primary Care Unavailable Casey Serrato Primary Care Unavailable Casey Serrato Attending Unavailable Casey Serrato Referring Unavailable Medications Current Medications Medication Drug Class(es) Dates Sig (Normalized) Sig (Original) amoxicillin 875 mg / clavulanate 125 mg oral tablet (1 source) Penicillin-class Antibacterial Start: 07-12-2022 End: 07-19-2022 take 1 tablet by mouth twice daily amoxicillin-clavula bang acid (AUGMENTIN) 875-125 mg per tablet Indications: [...] to procedure-to be administered per clinical support. erythromycin 0.005 mg/mg ophthalmic ointment (1 source) [...] after use. 1 Each 12/30/2022 Active lisinopril 10 mg oral tablet (20 sources) Angiotensin Converting Enzyme Inhibitor Start: 05-04-2025 take 1 tablet by mouth once daily Lisinopril 10 mg tablet Active 10 mg PO DAILY 90 3 May 04, 2025 3:30pm Complies with drug therapy Start: 03-17-2020 End: 05-04-2025 take 1 tablet by mouth once daily Lisinopril 5 mg tablet Discontinued 5 mg PO DAILY 90 3 December 04, 2023 10:33am November 09, 2024 8:25am PARoxetine hydrochloride 20 mg oral tablet (7 sources) Serotonin Reuptake Inhibitor Start: 05-04-2025 take 1 tablet by mouth once daily Paroxetine Hcl 20 mg tablet Active 20 mg PO daily May 04, 2025 12:00am Complies with drug therapy Start: 12-11-2013 End: 04-02-2025 take 1 tablet by mouth once daily Paroxetine Hcl 10 MG tablet Discontinued 10 mg PO DAILY September 16, 2019 1:00am April 02, 2025 1:10am depression Comment on above: [facility] tamsulosin hydrochloride 0.4 mg oral capsule (2 sources) alpha-Adrenergic Alfonso Start: 05-03-2016 take 1 capsule by mouth once daily tamsulosin ER (FLOMAX) 0.4 mg cp24 Take 1 capsule by mouth once daily. 90 capsule 4 05/03/2016 Active Comment on above: Take 1 capsule by mo [facility] once daily. Completed/Discontinued Medications Medication Drug Class(es) Dates Sig (Normalized) Sig (Original) 24 hr dilTIAZem hydrochloride 120 mg extended release oral capsule (20 sources) Calcium Channel Alfonso Start: 04-25-2021 CARTIA XT 120 mg 24 hr capsule 04/25/2021 Active Start: 09-16-2019 End: 01-25-2025 take 1 capsule by mouth once daily Diltiazem Hcl 120 mg capsule,extended release 24hr Discontinued 0 .ROUTE .COMPLEX 90 3 March 16, 2024 8:58am January 25, 2025 8:39am TAKE 1 CAPSULE BY MOUTH DAILY oxyCODONE hydrochloride 5 mg oral tablet (4 sources) Opioid Agonist Start: 10-18-2022 End: 02-06-2023 take 5-10 mg by mouth every six hours as needed for pain Oxycodone 5 mg tablet Discontinued 5 - 10 mg PO EVERY 6 HOURS as needed for pain 10 5 0 October 18, 2022 February 06, 2023 3:24pm Left inguinal hernia microencapsulated potassium chloride 20 meq extended release oral tablet (20 sources) Start: 10-06-2019 End: 05-04-2025 take 1 tablet by mouth once daily Potassium Chloride 20 mEq tablet,ER particles/crystals Discontinued 20 meq PO DAILY 90 3 December 04, 2023 10:33am November 09, 2024 8:25am Problems Active Problems Problem Classification Problem Date Documented Date Episodic/Chronic Abdominal hernia (5 sources) Left inguinal hernia ; Translations: [Unilateral inguinal hernia, without obstruction or gangrene, not specified as recurrent] 09-20-2022 Episodic Anxiety disorders (4 sources) Anxiety; Translations: [Anxiety disorder, unspecified] 09-16-2019 Chronic Cardiac dysrhythmias (11 sources) Paroxysmal atrial fibrillation; Translations: [Paroxysmal atrial fibrillation] Onset: 06-07-2025 09-16-2019 Chronic Cardiac dysrhythmias (1 source) Palpitations; Translations: [Palpitations] Onset: 04-07-2025 Episodic Esophageal disorders (4 sources) Gastroesophageal reflux disease; Translations: [Gastro-esophageal reflux disease without esophagitis] 09-20-2022 Chronic Essential hypertension (10 sources) Essential hypertension; Translations: [Essential (primary) hypertension] Onset: 12-28-2024 09-22-2020 Chronic Other eye disorders (1 source) Disorder of eye; Translations: [Unspecified disorder of eye and adnexa] 11-15-2024 Episodic Other upper respiratory infections (1 source) Bacterial sinusitis; Translations: [Chronic sinusitis, unspecified] Chronic Residual codes; unclassified (4 sources) Obstructive sleep apnea syndrome; Translations: [Obstructive sleep apnea (adult) (pediatric)] 09-22-2020 Chronic Comment on above: Overall AHI 21.4, in itiate AutoPap 4 to 15 cm of water Residual codes; unclassified (4 sources) Hypersomnia; Translations: [Hypersomnia, unspecified] 10-06-2019 Chronic [...] Onset: 04-12-2016 04-12-2016 Episodic Residual codes; unclassified (4 sources) Past history of procedure; Translations: [Other specified postprocedural states] Onset: 09-16-2019 12-14-2019 Episodic Residual codes; unclassified (4 sources) History of cardioversion; Translations: [Personal history of other medical treatment] Onset: 09-16-2019 12-14-2019 Episodic Unclassified (4 sources) history of finger reattached 12-14-2019 Unclassified (4 sources) history of skin graft as a child 12-14-2019 Results Test Name Value Interpretation Reference Range Facility Cardiology Visit Reporton Cardiology Visit Report [facility] [address] [place] [address] OFFICE VISIT Date of Service: 05/04/25 MR#: [id number] Acct: [id number] Name: RUI TATUM Rep #: [id number] : 1975 Provider: Dr. Víctor Mac MD Age/Sex: 49/M Location: [facility] [place] Status: Signed HPI HPI History of Present Illness Details: This is a 49-year-old male who presents to the office today for a cardiovascular outpatient follow- up. He has a history of paroxysmal atrial fibrillation status post STEVEN guided cardioversion on 09/16/2019, hypertension, obstructive sleep apnea with a mouth.guard, and family history of coronary artery disease and atrial fibrillation. He had presented to the emergency room in March of this year with an episode of atrial fibrillation and underwent DC cardioversion. He does not know of any precipitating factors. This was his first episode in over 5 years. He has done well since then. He denies chest, arm, jaw, or neck [...] level has remained stable. Intake Vital Signs 03/31/24 14:56 04/02/25 00:55 05/04/25 14:53 Height 5 ft 9 in 5 ft 9 in 5 ft 9 in Weight: 183 lb BMI 27.0 BP 135/85 H Blood Pressure Location Lt brachial Position Sitting Respiration 16 Pulse 85 Pulse Source Monitor Intake Visit Reasons: 1 Y FU Hospital Superintendent Required: No Accompanied by: Self Is patient in pain?: No Allergies No Known Allergies Allergy (Verified 05/04/25 14:56) Medications ???Medication ???Instructions ???Recorded ???Confirmed ???Type diltiazem HCl 120 mg See Rx Instructions .Route 5 05/04/25 Rx capsule,extended release 24 hr .COMPLEX #90 caps lisinopril 10 mg tablet 10 mg PO DAILY #90 TABLETS 5 05/04/25 Rx paroxetine HCl 20 mg tablet 20 mg PO QDAY 05/04/25 05/04/25 Hi story Ejection fraction %: 65 PFSH Medical History Anxiety Alcohol use Migraine [...] S/P transesophageal echocardiogram (STEVEN) (09/16/19) Family History Father Myocardial infarction CAD (coronary artery disease) early 50s Stented coronary artery Hypertension Mother CAD (coronary artery disease) early 50s S/P CABG x 3 Atrial fibrillation Diabetes Social History Smoking Status: Never smoker alcohol intake: current alcohol intake frequency: holidays/special occasions only substance use type: does not use caffeine: Yes Type: coffee Number of servings: 1 ROS Const Const: Negative for fatigue, weakness, daytime sleepiness or difficulty sleeping ENT ENT: Negative for dizziness or Nosebleed/epistaxis Cardio Chest Pain: No Palpitations: No Edema: None Resp Respiratory: Negative for SOB with activity, SOB at rest, SOB orthopnea SOB lying down or Cough GI GI: Negative nausea, vomiting or heartburn Neuro Neuro: Negative for dizziness, lightheadedness, near syncope or weakness Endo Endo: Negative for fatigue Cardiology Exam Const Appearance: cooperative, healthy appearing, [...] normal visual inspection and no JVD Carotids: normal carotid upstroke Chest Chest inspection: normal inspection of the chest, symmetric chest movement and normal respiratory effort; Negative cough Auscultation: Bilateral: Clear to Aus (more content not included)... Normal [facility] 12 Lead EKGon 04-02-2025 12 Lead EKG [facility] Cardiovascular Services [address] [place] [address] 12 Lead EKG 04/02/25 0057 MR#: [id number] Acct: [id number] Name: RUI TATUM Marilyn Rep #: [id number] : 1975 49 From: Trav Barnes MD Attending Dr: Status: DEP ER Ordering Dr: Delroy Muhammad DO Date: 04/02/25 Location: ED Sex: M C Admitted: Test Reason : PALPITATIONS Blood Pressure : */* mmHG Vent. Rate : 106 BPM Atrial Rate : * BPM P-R Int : * ms QRS Dur : 98 ms QT Int : 332 ms P-R-T Axes : * 27 17 degrees QTcB Int : 441 ms Atrial fibrillation with rapid ventricular response Nonspecific T wave abnormality Abnormal ECG Confirmed by NAGAARLENE CHAIREZ MD ([id number]), development editor RAHEEM JONES ([id number]) on 04/05/2025 7:29:38 AM Referred By: JA Confirmed By: ARLENE BARNES MD 04/05/25728 Date Trav Barnes MD CC: Dr. Casey Serrato MD; Delroy Muhammad DO Signed [facility] 12 Lead EKG [facility] Cardiovascular Services [address] [place] [address] 12 Lead EKG 04/02/25 0340 MR#: [id number] Acct: [id number] Name: RUI TATUM Rep #: [id number] : 1975 49 From: Trav Barnes MD Attending Dr: Status: DEP ER Ordering Dr: Delroy Muhammad DO Date: 04/02/25 Location: ED Sex: M C Admitted: Test Reason : RHYTHM CONVERSION Blood Pressure : */* mmHG Vent. Rate : 67 BPM Atrial Rate : 67 BPM P-R Int : 178 ms QRS Dur : 98 ms QT Int : 390 ms P-R-T Axes : 37 10 7 degrees QTcB Int : 412 ms Normal sinus rhythm Normal ECG Confirmed by ARLENE BARNES MD ([id number]), development editor RAHEEM JONES ([id number]) on 04/05/2025 7:29:48 AM Referred By: Confirmed By: ARLENE BARNES MD 04/05/25728 Date Trav Barnes MD CC: Dr. Casey Serrato MD; Delroy Muhammad DO Signed [facility] Absolute lymphocyte countOrd ered By: Delroy Muhammad on 04-02-2025 Lymphocytes Auto (Unsp spec) [#/Vol] 2.40 10*3/uL 0.83-4.51 [facility] Absolute neutrophil countOrd ered By: Delroy Muhammad on 04-02-2025 Neutrophils (Bld) [#/Vol] 2.7 10*3/uL 2.0-7.7 [facility] Anion gap in Serum or Plasma Ordered By: Delroy Muhammad on 04-02-2025 Anion gap [Moles/Vol] 12 mmol/L 5-15 [facility] Automated blood erythrocyte countOrdered By: Delroy Muhammad on 04-02-2025 RBC (Bld) [#/Vol] 4.70 10*6/uL Normal 4.6-6.2 [facility] Comment on above: Performed By: #### L 100.0100, L500.2500, L501.5200, L501.9520 #### [facility] [address] [place], [address] Automated blood hematocrit ( percentage)Ordered By: Delroy Muhammad on 04-02-2025 Hematocrit (Bld) [Volume fraction] 42.9 % Normal 40-54 [facility] Comment on above: Performed By: #### L 100.0100, L500.2500, L501.5200, L501.9520 #### [facility] [address] [place] [place], [address] Automated lymphocyte count a s percentage of total leukocytesOrdered By: Delroy Muhammad on 04-02-2025 Lymphocytes/100 WBC Auto (Unsp spec) 41.3 % High 19-41 [facility] BUN/creatinine ratioOrdered By: Delroy Muhammad on 04-02-2025 Urea nitrogen/Creatinine [Mass ratio] 16.3 mg/mg 10- [facility] Basic Metabolic Profile (BMP )on 04-02-2025 BUN/CRE 16.3 RATIO Normal - [facility] Comment on above: Performed By: #### L 100.0100, L500.2500, L501.5200, L501.9520 #### [facility] [address] [place], [address] ECRCL 74.46 ml/min Normal 50-250 [facility] Comment on above: Performed By: #### L 100.0100, L500.2500, L501.5200, [id number] #### [facility] [address] [place], [address] GAP 12 Normal 5-15 [facility] Comment on above: Performed By: #### L 100.0100, L500.2500, L501.5200, [id number] #### [facility] [address] [place], [address] Potassium [Moles/Vol] 4.0 mmol/L Normal 3.3-5.1 [facility] Comment on above: Performed By: #### L 100.0100, L500.2500, L501.5200, L501.9520 #### [facility] [address] [place], [address] Basophil percentageOrdered B y: Delroy Muhammad on 04-02-2025 Basophils/100 WBC (Bld) 0.9 % Normal 0-1 [facility] Comment on above: Performed By: #### L 100.0100, L500.2500, L501.5200, [id number] #### [facility] [address] [place], [address] CBC W/Diff, Automatedon 03-13 Absolute Lymph 2.40 X10 3/uL Normal 0.83-4.51 [facility] Comment on above: Performed By: #### L 100.0100, L500.2500, L501.5200, L501.9520 #### [facility] [address] [place], [address] Absolute Neut 2.7 X10 3/uL Normal 2.0-7.7 [facility] Comment on above: Performed By: #### L 100.0100, L500.2500, L501.5200, L501.9520 #### [facility] [address] [place], [address] IG% 0.500 Normal 0.0-0.9 [facility] Comment on above: Result Comment: IG% - Immature Granulocytes (promyelocytes, myelocytes and metamyelocytes) > 1% indicates that a LEFT SHIFT is Present. Performed By: #### L 100.0100, L500.2500, L501.5200, L501.9520 #### [facility] [address] [place], [address] Lymphocytes/100 WBC (Bld) 41.3 % High 19-41 [facility] Comment on above: Performed By: #### L 100.0100, L500.2500, L501.5200, L501.9520 #### [facility] [address] [place], [address] Nucleated RBC (Bld) [#/Vol] 0 10*3/uL Normal 0-5 [facility] Comment on above: Performed By: #### L 100.0100, L500.2500, L501.5200, L501.9520 #### [facility] [address] [place], [address] RDW SD 40.1 fl Normal 35.1-43.9 [facility] Comment on above: Performed By: #### L 100.0100, L500.2500, L501.5200, L501.9520 #### [facility] [address] [place], [address] Carbon dioxide, total [Moles /volume] in Central venous bloodOrdered By: Delory Muhammad on 04-02-2025 CO2 [Moles/Vol] 21.0 mmol/L Normal 21.0-32.0 [facility] Comment on above: Performed By: #### L 100.0100, L500.2500, L501.5200, L501.9520 #### [facility] [address] [place], [address] Chloride assayOrdered By: Ade Muhammad on 04-02-2025 Chloride [Moles/Vol] 108 mmol/L Normal 98-108 [facility] Comment on above: Performed By: #### L 100.0100, L500.2500, L501.5200, L501.9520 #### [facility] [address] [place], [address] Emergency Department Summary on 04-02-2025 Emergency Department Summary [facility] Medical Records Department [address] [place] [address] Emergency Department Summary 04/02/25 MR#: [id number] Acct: [id number] Name: RUI TATUM Rep #: [id number] : 1975 49 From: Delroy Muhammad DO PCP: Dr. Casey Serrato MD Status:REG ER Location: ED HPI History of Present Illness Chief Complaint: Palpitations Informant: patient and spouse/S.O. Narrative Narrative: Patient is a 49-year-old male with past medical history of hypertension and paroxysmal atrial fibrillation. He states he is on Cardizem for this and has been taking as directed. He states that he goes into atrial fibrillation so rarely that he is not on anticoagulation. He reports that this evening around 10/10:30 he suddenly began to feel his heart racing and skipped beats. He states it felt just like his previous episodes of atrial fibrillation. He denies any excessive stimulant use or illicit drug use. He states that there has been no sick symptoms such as nausea vomiting or diarrhea. He denies any loss of blood. He states there has been no alcohol use or binges. He states he waited roughly 2 hours to see if he would convert out of it but has not done so and therefore comes in for evaluation. [facility] Medical History Anxiety Alcohol use Migraine headache Heartburn CPAP (continuous positive airway pressure) dependence Hypertension History of stress test History of echocardiogram H/O transesophageal echocardiography (STEVEN) for monitoring Cardiology follow-up encounter History of atrial fibrillation Essential hypertension Hypersomnia Atrial fibrillation with RVR Paroxysmal a-fib Anxiety Home Medications ???Medication ???Instructions ???Recorded ???Last Taken ???Type lisinopril 5 mg tablet 5 mg PO DAILY #90 TABLETS 11/09/24 Unknown Rx potassium chloride 20 mEq 20 meq PO DAILY #90 TABLETS Unknown Rx tablet,extended release(part/cryst) diltiazem HCl 120 mg See Rx Instructions .Route 5 Unknown Rx capsule,extended release 24 hr .COMPLEX #90 caps Allergy/AdvReac Type Severity Reaction Status Date / Time No Known Allergies Allergy Verified 04/02/25 00:55 Family History (Updated 03/31/24 @ 15:16 by Raymond Bah [employer] ARTISTIC DIRECTOR, [employer] ARTISTIC DIRECTOR-C) Father Myocardial infarction CAD (coronary artery disease) early 50s Stented coronary artery Hypertension Mother CAD (coronary artery disease) early 50s S/P CABG x 3 Atrial fibrillation Diabetes Surgical History (Reviewed 03/31/24 @ 15:01 by Raymond Bah [employer] ARTISTIC DIRECTOR, [employer] ARTISTIC DIRECTOR-C) history of skin graft as a child history of finger reattached History of appendectomy History of cardioversion (09/16/19) S/P transesophageal echocardiogram (STEVEN) (09/16/19) Social History (Reviewed 03/31/24 @ 15:01 by Raymond Bah [employer] ARTISTIC DIRECTOR, [employer] ARTISTIC DIRECTOR-C) Smoking Status: Never smoker alcohol intake: current alcohol intake frequency: holidays/special occasions only substance use type: does not use caffeine: Yes Type: coffee Number of servings: 1 ROS ROS ED Constitutional Constitutional ED: Denies chills or fever(s) Eyes Eyes: Denies blurry vision or change in vision ENT ENT ED: Denies sore throat Cardiovascular Cardiovascular: Reports palpitations and racing heartbeat; Denies chest pain Respiratory/Chest Respiratory/Chest: Denies cough or dyspnea Gastrointestinal Gastrointestinal: Denies abdominal pain, diarrhea, nausea or vomiting Genitourinary Genitourinary ED: Denies dysuria or hematuria Musculoskeletal Musculoskeletal: Denies myalgias Integumentary Denies rash Neurologic Neurologic: Denies headache(s) Hematologic/Lymphati c Hematologic/Lymphati c: Denies easy bleeding or easy bruising EXAM Physical Exam Const Vital Signs: 04/02/25 00:55 04/02/25 01:06 04/02/25 01:38 Temperature 97.6 F L Temperature Source Oral Pulse Rate 120 H 91 Pulse Rate [1 (Initial Baseline)] Pulse Rate [2] Pulse Rate [3] Pulse Rate [4] Respiratory Rate 19 H Respiratory Rate [1 (Initial Baseline)] Respiratory Rate [2] Respiratory Rate [3] Respiratory Rate [4] Respiratory Effort Normal Blood Pressure 142/84 H 120/82 H Blood Pressure [1 (Initial Baseline)] Blood Pressure [4] Blood Pressure Mean 103 94 Baseline BP Pulse Ox 99 Oxygen Delivery Method Room Air Oxygen Delivery Method [1 (Initial Baseline)] Oxygen Delivery Method [2] Oxygen Delivery Method [3] Oxygen Delivery Method [4] Oxygen Flow Rate (L/min) Oxygen Flow Rate (L/min) [2] Oxygen Flow Rate (L/min) [3] Oxygen Flow Rate (L/min) [4] EtCo2 - Document during CPR and with ROSC EtCo2 - Document during CPR and with ROSC [1 (Initial Baseline)] EtCo2 - Document during CPR and with ROSC [2] EtCo2 - Document during CPR and wit (more content not included)... Normal [facility] Eosinophil percentageOrdered By: Delroy Muhammad on 04-02-2025 Eosinophils/100 WBC (Bld) 1.2 % Normal 0-5 [facility] Comment on above: Performed By: #### L 100.0100, L500.2500, L501.5200, L501.9520 #### [facility] [address], [place], [id number] (357) Erythrocyte distribution wid th ratioOrdered By: Delroy Muhammad on 04-02-2025 Erythrocyte distribution width (RBC) [Ratio] 12.1 % Normal 11.6-14.6 [facility] Comment on above: Performed By: #### L 100.0100, L500.2500, L501.5200, L501.9520 #### [facility] [address] [place], [address] Erythrocyte distribution wid th standard deviationOrdered By: Delroy Muhammad on 04-02-2025 Erythrocyte distribution width (RBC) [Ratio] 40.1 fl 35.1-43.9 [facility] Glomerular filtration rate ( GFR) estimation/1.73 sq m using serum, plasma, or whole bOrdered By: Delroy Muhammad on 04-02-2025 GFR/1.73 sq M.predicted among non-blacks MDRD (S/P/Bld) [Vol rate/Area] 74 mL/min/{1.73_m2} Normal >60 [facility] Comment on above: mL/min/1.73m2 CKD-EP I Creatinine Equation (2020) Result Comment: mL/m in/1.73m2 CKD-EPI Creatinine Equation (2020) Performed By: #### L 100.0100, L500.2500, L501.5200, L501.9520 #### [facility] [address] [place], [place], [id number] Hemoglobin measurementOrdere d By: Delroy Muhammad on 04-02-2025 Hemoglobin (Bld) [Mass/Vol] 15.0 g/dL Normal 13.0-16.5 [facility] Comment on above: Performed By: #### L 100.0100, L500.2500, L501.5200, L501.9520 #### [facility] [address] [place], [place], [id number] Immature granulocytes/100 WB C Auto (Bld)Ordered By: Delroy Muhammad on 04-02-2025 Immature granulocytes/100 WBC (Bld) 0.500 % 0.0-0.9 [facility] Comment on above: IG% - Immature Granu locytes (promyelocytes, myelocytes and metamyelocytes) > 1% indicates that a LEFT SHIFT is Present. MCV (mean corpuscular volume ) determinationOrdered By: Delroy Muhammad on 04-02-2025 MCV (RBC) [Entitic vol] 91.3 fL Normal 80-94 [facility] Comment on above: Performed By: #### L 100.0100, L500.2500, L501.5200, L501.9520 #### [facility] [address] [place], [place], [id number] Magnesiumon 04-02-2025 Magnesium [Mass/Vol] 2.3 mg/dL High 1.5-2.2 [facility] Comment on above: Performed By: #### L 100.0100, L500.2500, L501.5200, L501.9520 #### [facility] [address] [place], [address] Magnesium measurement (mass/ volume)Ordered By: Delroy Muhammad on 04-02-2025 Magnesium (Unsp spec) [Mass/Vol] 2.3 mg/dL High 1.5-2.2 [facility] Mean corpuscular hemoglobin (MCH) determinationOrdered By: Delroy Muhammad on 04-02-2025 MCH (RBC) [Entitic mass] 31.9 pg Normal 27.0-32.0 [facility] Comment on above: Performed By: #### L 100.0100, L500.2500, L501.5200, L501.9520 #### [facility] [address] [place], [address] Mean corpuscular hemoglobin concentration (MCHC) determinationOrdered By: Delroy Muhammad on 04-02-2025 MCHC (RBC) [Mass/Vol] 35.0 g/dL Normal 32-36 [facility] Comment on above: Performed By: #### L 100.0100, L500.2500, L501.5200, L501.9520 #### [facility] [address] [place], [address] Mean platelet volume determi nationOrdered By: Delroy Muhammad on 04-02-2025 Platelet mean volume (Bld) [Entitic vol] 10.0 fL Normal 6.2-12.0 [facility] Comment on above: Performed By: #### L 100.0100, L500.2500, L501.5200, L501.9520 #### [facility] [address] [place], [address] Monocyte percentageOrdered B y: Delroy Muhammad on 04-02-2025 Monocytes/100 WBC (Bld) 9.5 % Normal 0-10 [facility] Comment on above: Performed By: #### L 100.0100, L500.2500, L501.5200, L501.9520 #### [facility] [address] [place], [address] Neutrophil percentageOrdered By: Delroy Muhammad on 04-02-2025 Neutrophils/100 WBC (Bld) 46.6 % Low 47-70 [facility] Comment on above: Performed By: #### L 100.0100, L500.2500, L501.5200, L501.9520 #### [facility] [address] [place], [address] Nucleated red blood cell per centageOrdered By: Delroy Muhammad on 04-02-2025 Nucleated RBC/100 WBC (Bld) [Ratio] 0 % 0-5 [facility] Platelet countOrdered By: Ade Muhammad on 04-02-2025 Platelets (Bld) [#/Vol] 206 10*3/uL Normal 150-450 [facility] Comment on above: Performed By: #### L 100.0100, L500.2500, L501.5200, L501.9520 #### [facility] [address] [place], [address] Potassium measurement (mass/ volume)Ordered By: Delroy Muhammad on 04-02-2025 Potassium (Unsp spec) [Mass/Vol] 4.0 mmol/L 3.3-5.1 [facility] Serum creatinine measurement (mass/volume)Ordered By: Delroy Muhammad on 04-02-2025 Creatinine [Mass/Vol] 1.20 mg/dL Normal 0.70-1.20 [facility] Comment on above: Performed By: #### L 100.0100, L500.2500, L501.5200, L501.9520 #### [facility] [address] [place], [address] Serum glucose measurement (m ass/volume)Ordered By: Delroy Muhammad on 04-02-2025 Glucose [Mass/Vol] 92 mg/dL Normal 70-99 [facility] Comment on above: Performed By: #### L 100.0100, L500.2500, L501.5200, L501.9520 #### [facility] [address], [address] Serum or plasma calcium adrian urement (mass/volume)Ordered By: Delroy Muhammad on 04-02-2025 Calcium [Mass/Vol] 8.8 mg/dL Normal 7.6-11.0 [facility] Comment on above: Performed By: #### L 100.0100, L500.2500, L501.5200, L501.9520 #### [facility] [address] [place], [address] Serum or plasma urea nitroge n measurement (mass/volume)Ordered By: Delroy Muhammad on 04-02-2025 Urea nitrogen [Mass/Vol] 20 mg/dL High 4-19 [facility] Comment on above: Performed By: #### L 100.0100, L500.2500, L501.5200, L501.9520 #### [facility] [address] [place], [address] Sodium levelOrdered By: Zhou Muhammad on 04-02-2025 Sodium [Moles/Vol] 141 mmol/L Normal 133-145 [facility] Comment on above: Performed By: #### L 100.0100, L500.2500, L501.5200, L501.9520 #### [facility] [address] [place], [address] TSH DL <= 0.005 mIU/L QnOrde red By: Delroy Muhammad on 04-02-2025 TSH Qn 2.820 uIU/mL 0.300-4.200 [facility] Thyroid Stim Hormone (TSH)on 04-02-2025 TSH 2.820 uIU/mL Normal 0.300-4.200 [facility] Comment on above: Performed By: #### L 100.0100, L500.2500, L501.5200, L501.9520 #### [facility] [address] [place], [place], [id number] White blood cell (WBC) count Ordered By: Delroy Muhammad on 04-02-2025 WBC (Bld) [#/Vol] 5.8 10*3/uL Normal 4.4-11.0 [facility] Comment on above: Performed By: #### L 100.0100, L500.2500, L501.5200, L501.9520 #### [facility] [address] [place], [place], [id number] Anion gap in Serum or Plasma Ordered By: Casey Serrato on 12-23-2024 Anion gap [Moles/Vol] 11 mmol/L 5-15 [facility] BUN/creatinine ratioOrdered By: Casey Serrato on 12-23-2024 Urea nitrogen/Creatinine [Mass ratio] 18.9 mg/mg 10-20 [facility] Bilirubin, totalOrdered By: Casey Serrato on 12-23-2024 Bilirubin [Mass/Vol] 1.70 mg/dL High 0.00-1.30 [facility] Calculated very low density lipoprotein (VLDL) cholesterol measurementOrdered By: Casey Serrato on 12-23-2024 Calculated very low density lipoprotein (VLDL) cholesterol measurement 14 mg/dL 5-40 [facility] Carbon dioxide, total [Moles /volume] in Central venous bloodOrdered By: Casey Serrato on 12-23-2024 CO2 [Moles/Vol] 23.0 mmol/L 21.0-32.0 [facility] Chloride assayOrdered By: Jeremiah Serrato on 12-23-2024 Chloride [Moles/Vol] 105 mmol/L 98-108 [facility] Comprehensive Metabolic Prof ilon 12-23-2024 Albumin [Mass/Vol] 4.5 g/dL Normal 3.5-5.0 [facility] Comment on above: Performed By: #### L 500.4050, L509.3001, L500.4100, L501.9520 #### [facility] [address] [place], [address] Albumin/Globulin [Mass ratio] 1.7 {ratio} Normal 0.9-2.4 [facility] Comment on above: Performed By: #### L 500.4050, L509.3001, L500.4100, L501.9520 #### [facility] [address] [place], [address] ALK PHOS 71 U/L Normal 40-129 [facility] Comment on above: Performed By: #### L 500.4050, L509.3001, L500.4100, [id number] #### [facility] [address] [place], [address] ALT [Catalytic activity/Vol] 47 U/L Normal <=46 [facility] Comment on above: Performed By: #### L 500.4050, L509.3001, L500.4100, [id number] #### [facility] [address] [place], [address] AST [Catalytic activity/Vol] 31 U/L Normal <=37 [facility] Comment on above: Performed By: #### L 500.4050, L509.3001, L500.4100, [id number] #### [facility] [address] [place], [address] Bilirubin [Mass/Vol] 1.70 mg/dL High 0.00-1.30 [facility] Comment on above: Performed By: #### L 500.4050, L509.3001, L500.4100, L501.9520 #### [facility] [address] [place], [address] BUN/CRE 18.9 RATIO Normal 10-20 [facility] Comment on above: Performed By: #### L 500.4050, L509.3001, L500.4100, [id number] #### [facility] [address] [place], [address] Calcium [Mass/Vol] 9.1 mg/dL Normal 7.6-11.0 [facility] Comment on above: Performed By: #### L 500.4050, L509.3001, L500.4100, L501.9520 #### [facility] [address] [place], [address] Chloride [Moles/Vol] 105 mmol/L Normal 98-108 [facility] Comment on above: Performed By: #### L 500.4050, L509.3001, L500.4100, L501.9520 #### [facility] [address] [place], [address] CO2 [Moles/Vol] 23.0 mmol/L Normal 21.0-32.0 [facility] Comment on above: Performed By: #### L 500.4050, L509.3001, L500.4100, L501.9520 #### [facility] [address] [place], [address] Creatinine [Mass/Vol] 1.25 mg/dL High 0.70-1.20 [facility] Comment on above: Performed By: #### L 500.4050, L509.3001, L500.4100, L501.9520 #### [facility] [address] [place], [address] GAP 11 Normal 5-15 [facility] Comment on above: Performed By: #### L 500.4050, L509.3001, L500.4100, L501.9520 #### [facility] [address] [place], [address] GFR/1.73 sq M.predicted among non-blacks MDRD (S/P/Bld) [Vol rate/Area] 71 mL/min/{1.73_m2} Normal >60 [facility] Comment on above: Result Comment: mL/m in/1.73m2 CKD-EPI Creatinine Equation (2020) Performed By: #### L 500.4050, L509.3001, L500.4100, L501.9520 #### [facility] [address] [place], [address] Globulin (S) [Mass/Vol] 2.7 g/dL Normal 2.2-4.2 [facility] Comment on above: Performed By: #### L 500.4050, L509.3001, L500.4100, L501.9520 #### [facility] [address] [place], [address] Glucose [Mass/Vol] 101 mg/dL High 70-99 [facility] Comment on above: Performed By: #### L 500.4050, L509.3001, L500.4100, L501.9520 #### [facility] [address] [place], [address] Potassium [Moles/Vol] 4.2 mmol/L Normal 3.3-5.1 [facility] Comment on above: Performed By: #### L 500.4050, L509.3001, L500.4100, L501.9520 #### [facility] [address] [place], [address] Sodium [Moles/Vol] 139 mmol/L Normal 133-145 [facility] Comment on above: Performed By: #### L 500.4050, L509.3001, L500.4100, L501.9520 #### [facility] [address] [place], [address] T PROT 7.1 g/dL Normal 5.9-8.4 [facility] Comment on above: Performed By: #### L 500.4050, L509.3001, L500.4100, L501.9520 #### [facility] [address] [place], [address] Urea nitrogen [Mass/Vol] 24 mg/dL High 4-19 [facility] Comment on above: Performed By: #### L 500.4050, L509.3001, L500.4100, L501.9520 #### [facility] [address] [place], [address] Glomerular filtration rate ( GFR) estimation/1.73 sq m using serum, plasma, or whole bOrdered By: Casey Serrato on 12-23-2024 GFR/1.73 sq M.predicted among non-blacks MDRD (S/P/Bld) [Vol rate/Area] 71 mL/min/{1.73_m2} >60 [facility] Comment on above: mL/min/1.73m2 CKD-EP I Creatinine Equation (2020) L509.3001on 12-23-2024 Testosterone [Mass/Vol] 584.00 ng/dL Normal 300-890 [facility] Comment on above: Performed By: #### L 500.4050, L509.3001, L500.4100, L501.9520 ####[facility] [id number] [place], [address] LDL calc ser/plasOrdered By: Casey Serrato on 12-23-2024 Cholesterol in LDL [Mass/Vol] 100 mg/dL [facility] Comment on above: Pvnfkkmjdj=795-480 m g/dL & Higher Xhzr=103 mg/dL or greater Laboratory - Chemistry and C hemistry - challengeOrdered By: Casey Serrato on 12-23-2024 AST [Catalytic activity/Vol] 31 U/L <38 [facility] Testosterone [Mass/Vol] 584.00 ng/dL 300-890 [facility] Lipid Profileon 12-23-2024 CHOL:HDL 3.71 Normal [facility] Comment on above: Performed By: #### L 500.4050, L509.3001, L500.4100, L501.9520 #### [facility] [address] [place], [address] Cholesterol [Mass/Vol] 156 mg/dL Normal <=200 [facility] Comment on above: Result Comment: Chol esterol level, Desirable <200 mg/dL Borderline high cholesterol 200-239 mg/dL High cholesterol >=240 mg/dL Recommendations of the NCEP Adult Treatment Panel for the following risk-cutoff thresholds for the [place] Citizen population. Performed By: #### L 500.4050, L509.3001, L500.4100, L501.9520 #### [facility] [address] [place], [address] Cholesterol in HDL [Mass/Vol] 42 mg/dL Normal [facility] Comment on above: Result Comment: Megan onal Cholesterol Education Program (NCEP) guidelines: <40 mg/dL: Low HDL-cholesterol (major risk factor for CHD) >= 60 mg/dL: High HDL-cholesterol (negative risk factor for CHD) HDL-cholesterol is affected by a number of factors, e.g. smoking, exercise, hormones, sex and age. Performed By: #### L 500.4050, L509.3001, L500.4100, L501.9520 #### [facility] [address] [place], [address] Cholesterol in LDL [Mass/Vol] 100 mg/dL Normal [facility] Comment on above: Result Comment: Bord wmfapp=824-347 mg/dL Higher Gixm=508 mg/dL or greater Performed By: #### L 500.4050, L509.3001, L500.4100, L501.9520 #### [facility] [address] [place], [address] Cholesterol in VLDL [Mass/Vol] 14 mg/dL Normal 5-40 [facility] Comment on above: Performed By: #### L 500.4050, L509.3001, L500.4100, L501.9520 #### [facility] [address] [place], [address] Triglyceride [Mass/Vol] 69 mg/dL Normal [facility] Comment on above: Result Comment: The drugs N-Acetylcysteine and Metamizole may falsely depress this assay. Normal range: <150 mg/dL Borderline High: 150-199 mg/dL High: 200-499 mg/dL Very High: >500 mg/dL Performed By: #### L 500.4050, L509.3001, L500.4100, L501.9520 #### [facility] [address] [place], [place], [address] Potassium measurement (mass/ volume)Ordered By: Casey Serrato on 12-23-2024 Potassium (Unsp spec) [Mass/Vol] 4.2 mmol/L 3.3-5.1 [facility] Screening total cholesterol/ high density lipoprotein (HDL) cholesterol ratioOrdered By: Casey Serrato on 12-23-2024 Cholesterol.total/Choles terol in HDL [Mass ratio] 3.71 {ratio} [facility] Serum creatinine measurement (mass/volume)Ordered By: Casey Serrato on 12-23-2024 Creatinine [Mass/Vol] 1.25 mg/dL High 0.70-1.20 [facility] Serum globulin measurementOr dered By: Casey Serrato on 12-23-2024 Globulin (S) [Mass/Vol] 2.7 g/dL 2.2-4.2 [facility] Serum glucose measurement (m ass/volume)Ordered By: Caesy Serrato on 12-23-2024 Glucose [Mass/Vol] 101 mg/dL High 70-99 [facility] Serum or plasma alanine edwards otransferase (ALT) measurementOrdered By: Casey Serrato on 12-23-2024 ALT [Catalytic activity/Vol] 47 U/L <47 [facility] Serum or plasma albumin adrian urement (mass/volume)Ordered By: Casey Serrato on 12-23-2024 Albumin [Mass/Vol] 4.5 g/dL 3.5-5.0 [facility] Serum or plasma albumin/glob ulin mass ratioOrdered By: Casey Serrato on 12-23-2024 Albumin/Globulin [Mass ratio] 1.7 {ratio} 0.9-2.4 [facility] Serum or plasma alkaline tarah sphatase measurementOrdered By: Casey Serrato on 12-23-2024 ALP [Catalytic activity/Vol] 71 U/L 40-129 [facility] Serum or plasma calcium adrian urement (mass/volume)Ordered By: Casey Serrato on 12-23-2024 Calcium [Mass/Vol] 9.1 mg/dL 7.6-11.0 [facility] Serum or plasma cholesterol in HDL measurement (mass/volume)Ordered By: Casey Serrato on 12-23-2024 Cholesterol in HDL [Mass/Vol] 42 mg/dL >40 [facility] Comment on above: National Cholesterol Education Program (NCEP) guidelines:<40 mg/dL: Low HDL-cholesterol (major risk factor for CHD)>= 60 mg/dL: High HDL-cholesterol (negative risk factor for CHD)HDL-cholesterol is affected by a number of factors, e.g. smoking, exercise, hormones, sex and age. Serum or plasma cholesterol measurement (mass/volume)Ordered By: Casey Serrato on 12-23-2024 Cholesterol [Mass/Vol] 156 mg/dL <201 [facility] Comment on above: Cholesterol level, D esirable <200 mg/dLBorderline high cholesterol 200-239 mg/dLHigh cholesterol >=240 mg/dLRecommendations of the NCEP Adult Treatment Panel for the following risk-cutoff thresholds for the [place] Citizen population. Serum or plasma urea nitroge n measurement (mass/volume)Ordered By: Casey Serrato on 12-23-2024 Urea nitrogen [Mass/Vol] 24 mg/dL High 4-19 [facility] Sodium levelOrdered By: Casey Serrato on 12-23-2024 Sodium [Moles/Vol] 139 mmol/L 133-145 [facility] TSH DL <= 0.005 mIU/L QnOrde red By: Casey Serrato on 12-23-2024 TSH Qn 1.070 uIU/mL 0.300-4.200 [facility] Thyroid Stim Hormone (TSH)on 12-23-2024 TSH 1.070 uIU/mL Normal 0.300-4.200 [facility] Comment on above: Performed By: #### L 500.4050, L509.3001, L500.4100, L501.9520 #### [facility] [place], [address] Total proteinOrdered By: Charlotte Serrato on 12-23-2024 Protein [Mass/Vol] 7.1 g/dL 5.9-8.4 [facility] Triglycerides measurementOrd ered By: Casey Serrato on 12-23-2024 Triglyceride [Mass/Vol] 69 mg/dL <199 [facility] Comment on above: The drugs N-Acetylcy steine and Metamizole may falsely depress this assay. Normal range: <150 mg/dLBorderline High: 150-199 mg/dLHigh: 200-499 mg/dLVery High: >500 mg/dL CNOVon 11-15-2024 CNOV Office Visit ([facility]) RUI TATUM ([id number]) 1975 M Date Time Provider Department 11/15/24 10:00 AM ESTRELLA ESQUIVEL [facility] During your visit today, we recorded the following information about you: Temperature Pulse Respiration Blood pressure 98.1 degrees 66/minute 16/minute 144/92 Weight 85 kg Estrella Esquivel APRN.DIRECTOR OF CORPORATE MARKETING 11/15/2024 10:52 AM Signed [facility] Subjective HPI Rui Marilyn Tatum is a 49 year old male. [...] (+) left eye pain, (-) visual disturbances Ears/Nose/Mouth/Thro at: (-) post nasal drip Objective BP 144/92 [...] The patient consented to the use of [employer] software for draft documentation of the visit consistent with [facility]?s Notice of Privacy Practices. History and [...] oral antibiotic as prescribed. Follow up with adjunct sociology professor Diagnosis and treatment plan were discussed and questions were answered to the patient's satisfaction. Pt acknowledged understanding of concepts and follow up plan. Specific signs and symptoms that would indicate the need for higher level of care were discussed in detail warranting prompt ER evaluation. Estrella Sierra, REAMING MACHINE OPERATOR.DIRECTOR OF CORPORATE MARKETING Sierra, Estrella, REAMING MACHINE OPERATOR.DIRECTOR OF CORPORATE MARKETING 11/15/2024 10:39 AM Signed - Apply erythromycin [...] history of (more content not included)... [facility] percentageOrdered B y: Dr. White on 10-05-2022 Chloride [Moles/Vol] 107 mmol/L 98-107 [facility] Glucose [Mass/Vol] 112 mg/dL 74-106 [facility] Comment on above: Fasting Glucose resu lt from 100 to 125 mg/dL suggests IMPAIRED HOMEOSTASIS per A.D.A. criteria. Potassium [Moles/Vol] 4.0 mmol/L 3.5-5.1 [facility] Sodium [Moles/Vol] 141 mmol/L 136-145 [facility] WBC (Bld) [#/Vol] 6.1 10*3/uL 4.4-11.0 [facility] Blood erythrocytes count (nu mber/volume)Ordered By: Dr. White on 10-05-2022 RBC (Bld) [#/Vol] 4.90 10*6/uL 4.6-6.2 [facility] Blood hemoglobin measurement (mass/volume)Ordered By: Dr. White on 10-05-2022 Hemoglobin (Bld) [Mass/Vol] 15.4 g/dL 13.0-16.5 [facility] Blood platelet mean volumeOr dered By: Dr. White on 10-05-2022 Platelet mean volume (Bld) [Entitic vol] 9.9 fL 6.2-12.0 [facility] Determination of erythrocyte mean corpuscular volume (MCV)Ordered By: Dr. White on 10-05-2022 MCV (RBC) [Entitic vol] 90.6 fL 80-94 [facility] Hematocrit Auto (Bld) [Volum e fraction]Ordered By: Dr. White on 10-05-2022 Hematocrit (Bld) [Volume fraction] 44.4 % 40-54 [facility] - Chemistry and C hemistry - challengeOrdered By: Dr. White on 10-05-2022 CO2 [Moles/Vol] 26.0 mmol/L 21.0-32.0 [facility] Urea nitrogen/Creatinine [Mass ratio] 20.7 mg/mg 10-20 [facility] - Hematology and Cell countsOrdered By: Dr. White on 10-05-2022 Erythrocyte distribution width (RBC) [Entitic vol] 40.2 fL 35.1-43.9 [facility] Erythrocyte distribution width (RBC) [Ratio] 12.3 % 11.6-14.6 [facility] MCH (RBC) [Entitic mass] 31.4 pg 27.0-32.0 [facility] MCHC Auto (RBC) [Mass/Vol]Or dered By: Dr. White on 10-05-2022 MCHC (RBC) [Mass/Vol] 34.7 g/dL 32-36 [facility] No Panel InformationOrdered By: Dr. White on 10-05-2022 Estimated GFR (MDRD) Amer 73 mL/min >60 [facility] Comment on above: GFR Calc Estimated GFR (MDRD) Non-Af Amer 60 mL/min >60 [facility] Comment on above: Non- GFR Calc Platelets bldOrdered By: Dr. White on 10-05-2022 Platelets (Bld) [#/Vol] 234 10*3/uL 150-450 [facility] Serum or plasma calcium adrian urement (mass/volume)Ordered By: Dr. White on 10-05-2022 Calcium [Mass/Vol] 9.1 mg/dL 8.5-10.1 [facility] Serum or plasma creatinine m easurement (mass/volume)Ordered By: Dr. White on 10-05-2022 Creatinine [Mass/Vol] 1.35 mg/dL 0.70-1.30 [facility] Comment on above: The validity of the calculated GFR & GFRAA in patients over 70 years has not been determined. Clinical correlation is essential. Serum or plasma urea nitroge n measurement (mass/volume)Ordered By: Dr. White on 10-05-2022 Urea nitrogen [Mass/Vol] 28 mg/dL 7-18 [facility] Thin prep Papanicolaou smear with manual screeningOrdered By: Dr. White on 10-05-2022 Thin prep Papanicolaou smear with manual screening 8 5-15 [facility] Vital Signs Date Time Vital Sign Value Performing Clinician Facility 05-04-2025 14:53-0400 Body height 175.[address] Casey Serrato MD Work Phone: 8(323)052-059864 [place] [address] 05-04-2025 14:53-0400 Body mass index (BMI) [Ratio] 27 kg/m2 Dr. Casey Serrato MD Work Phone: [facility] 05-04-2025 14:53-0400 Body weight [address] Casey Serrato MD Work Phone: 4(042)732-660564 [place] [address] 05-04-2025 14:53-0400 Diastolic blood pressure 85 mm[Hg] Dr. Casey Serrato MD Work Phone: 6(875)238-984364 [place] [address] 05-04-2025 14:53-0400 Heart rate 85 /min Dr. Casey Serrato MD Work Phone: 5(561)557-097101 [place] [address] 05-04-2025 14:53-0400 Respiratory rate 16 /min Dr. Casey Serrato MD Work Phone: 9(886)479-863701 [place] [address] 05-04-2025 14:53-0400 Systolic blood pressure 135 mm[Hg] Dr. Casey Serrato MD Work Phone: 7(989)309-714064 [place] [address] 04-02-2025 04:21-0400 Body temperature 97.8 [degF] Dr. Casey Serrato MD Work Phone: 9(535)055-588664 [place] [address] 04-02-2025 04:21-0400 Diastolic blood pressure 79 mm[Hg] Dr. Casey Serrato MD Work Phone: 5(716)303-585164 [place] [address] 04-02-2025 04:21-0400 Heart rate 68 /min Dr. Casey Serrato MD Work Phone: 0(773)069-967264 [place] [address] 04-02-2025 04:21-0400 Respiratory rate 18 /min Dr. Casey Serrato MD Work Phone: [facility] 04-02-2025 04:21-0400 SaO2% (BldA) [Mass fraction] 96 % Dr. Casey Serrato MD Work Phone: [facility] 04-02-2025 04:21-0400 Systolic blood pressure 105 mm[Hg] Dr. Casey Serrato MD Work Phone: 5(080)812-341764 [place] [address] 04-02-2025 03:50-0400 Inhaled oxygen flow rate 0 L/min Dr. Casey Serrato MD Work Phone: [facility] 04-02-2025 00:55-0400 Body height 175.[address] Casey Serrato MD Work Phone: [facility] 04-02-2025 00:55-0400 Body mass index (BMI) [Ratio] 27.3 kg/m2 Dr. Casey Serrato MD Work Phone: [facility] 04-02-2025 00:55-0400 Body weight [address] Casey Serrato MD Work Phone: [facility] 11-15-2024 10:02-0400 Body temperature 98.1 [degF] Estrella Sierra REAMING MACHINE OPERATOR.DIRECTOR OF CORPORATE MARKETING Work Phone: [facility] 11-15-2024 10:02-0400 Body weight 85 kg Estrella Sierra REAMING MACHINE OPERATOR.DIRECTOR OF CORPORATE MARKETING Work Phone: [facility] 11-15-2024 10:02-0400 Diastolic blood pressure 92 mm[Hg] Estrella Sierra REAMING MACHINE OPERATOR.DIRECTOR OF CORPORATE MARKETING Work Phone: [facility] 11-15-2024 10:02-0400 Heart rate 66 /min Estrella Sierra REAMING MACHINE OPERATOR.DIRECTOR OF CORPORATE MARKETING Work Phone: [facility] 11-15-2024 10:02-0400 Respiratory rate 16 /min Estrella Sierra REAMING MACHINE OPERATOR.DIRECTOR OF CORPORATE MARKETING Work Phone: [facility] 11-15-2024 10:02-0400 SaO2% (BldA) [Mass fraction] 98 % Estrella Sierra REAMING MACHINE OPERATOR.DIRECTOR OF CORPORATE MARKETING Work Phone: [facility] 11-15-2024 10:02-0400 Systolic blood pressure 144 mm[Hg] Estrella Sierra REAMING MACHINE OPERATOR.DIRECTOR OF CORPORATE MARKETING Work Phone: [facility] 10-18-2022 13:45-0500 Body temperature 97.1 [degF] Dr. Casey Serrato Work Phone: [facility] 10-18-2022 13:45-0500 Diastolic blood pressure 85 mm[Hg] Dr. Casey Serrato Work Phone: [facility] 10-18-2022 13:45-0500 Heart rate 74 /min Dr. Casey Serrato Work Phone: [facility] 10-18-2022 13:45-0500 Respiratory rate 16 /min Dr. Casey Serrato Work Phone: [facility] 10-18-2022 13:45-0500 SaO2% (BldA) [Mass fraction] 99 % Dr. Casey Serrato Work Phone: [facility] 10-18-2022 13:45-0500 Systolic blood pressure 116 mm[Hg] Dr. Casey Serrato Work Phone: 8(425)436-995378 [address] 10-18-2022 10:14-0500 Body height 175.[address] Casey Serrato Work Phone: 1(638)142-649478 [address] 10-18-2022 10:14-0500 Body mass index (BMI) [Ratio] 27 kg/m2 Dr. Casey Serrato Work Phone: [facility] 10-18-2022 10:14-0500 Body weight [address] Casey Serrato Work Phone: 6(533)347-782364 [place] [address] 09-20-2022 15:00-0500 Body mass index (BMI) [Ratio] 28.3 kg/m2 Dr. Casey Serrato Work Phone: [facility] 09-20-2022 15:00-0500 Body temperature 97.9 [degF] Dr. Casey Serrato Work Phone: [facility] 09-20-2022 15:00-0500 Body weight 84.[address] Casey Serrato Work Phone: [facility] 09-20-2022 15:00-0500 Diastolic blood pressure 83 mm[Hg] Dr. Casey Serrato Work Phone: [facility] 09-20-2022 15:00-0500 Heart rate 83 /min Dr. Casey Serrato Work Phone: [facility] 09-20-2022 15:00-0500 Respiratory rate 16 /min Dr. Casey Serrato Work Phone: [facility] 09-20-2022 15:00-0500 SaO2% (BldA) [Mass fraction] 96 % Dr. Casey Serarto Work Phone: [facility] 09-20-2022 15:00-0500 Systolic blood pressure 132 mm[Hg] Dr. Casey Serrato Work Phone: [facility] 07-12-2022 11:50-0500 Body temperature 97.39 [degF] Anne Praisler-Wood REAMING MACHINE OPERATOR.DIRECTOR OF CORPORATE MARKETING Work Phone: [facility] 07-12-2022 11:50-0500 Body weight 84.19 kg Anne Praisler-Wood REAMING MACHINE OPERATOR.DIRECTOR OF CORPORATE MARKETING Work Phone: [facility] 07-12-2022 11:50-0500 Diastolic blood pressure 88 mm[Hg] Anne Praisler-Wood REAMING MACHINE OPERATOR.DIRECTOR OF CORPORATE MARKETING Work Phone: [facility] 07-12-2022 11:50-0500 Heart rate 85 /min Anne Praisler-Wood REAMING MACHINE OPERATOR.DIRECTOR OF CORPORATE MARKETING Work Phone: [facility] 07-12-2022 11:50-0500 Respiratory rate 18 /min Anne Praisler-Wood REAMING MACHINE OPERATOR.DIRECTOR OF CORPORATE MARKETING Work Phone: [facility] 07-12-2022 11:50-0500 SaO2% (BldA) [Mass fraction] 98 % Anne Praisler-Wood REAMING MACHINE OPERATOR.DIRECTOR OF CORPORATE MARKETING Work Phone: [facility] 07-12-2022 11:50-0500 Systolic blood pressure 124 mm[Hg] Anne Praisler-Wood REAMING MACHINE OPERATOR.DIRECTOR OF CORPORATE MARKETING Work Phone: [facility] Encounters Encounter Date Encounter Type Care Provider Facility Start: 08-20-2025 ambulatory Casey Serrato Facility:[facility] Start: 06-28-2025 ambulatory Víctor Mac Facility:[facility] Start: 05-04-2025 End: 05-04-[address] Víctor Mac MD -[facility] Work Phone: Start: 05-04-2025 End: 05-04-[address] Casey Serrato MD Work Phone: -[facility] Start: 04-02-2025 End: 04-02-2025 Emergency department patient visit Dr. Casey Serrato MD Work Phone: -Emergency Department Work Phone: Start: 12-23-2024 End: 12-23-[address] Casey Serrato MD Work Phone: [facility] Work Phone: Start: 12-23-2024 End: 12-23-[address] Casey Serrato MD -Laboratory Work Phone: Start: 12-23-2024 End: 12-23-2024 ambulatory Casey Serrato Facility:[facility] Start: 11-15-2024 End: 11-15-2024 ambulatory CASEY SERRATO Facility:[facility] Start: 11-15-2024 End: 11-15-2024 Patient encounter procedure Estrella Esquivel VIDYA Work Phone: [facility] Comment on above: Eye problem (Primary Dx) Start: 10-18-2022 Non-patient / Non-visit Dr. Jeremiah Serrato Work Phone: [facility] Start: 10-18-2022 End: 10-18-2022 Admission to same day surgery center Dr. Casey Serrato Work Phone: [facility] Start: 10-18-2022 End: 10-18-[address] Casey Serrato Work Phone: [facility] Work Phone: Start: 10-05-2022 End: 10-05-2022 Non-patient / Non-visit Dr. Casey Serrato Work Phone: [facility] Start: 09-20-2022 End: 09-20-[address] Casey Serrato Work Phone: [facility] Start: 07-12-2022 End: 07-12-2022 Patient encounter procedure Anne Joseph APRN.EDWINA Work Phone: [facility] Care Comment on above: Bacterial sinusitis (Primary Dx) Procedures Date Procedure Procedure Detail Performing Clinician Start: 04-02-[address] Casey Serrato MD Work Phone: Start: 10-18-2022 Lap Robotic Inguinal Hernia (Left) Dr. Casey Serrato Work Phone: History of appendectomy History of append ectomy Dr. Casey Serrato Work Phone: Plan of Treatment Date Care Activity Detail Author Start: 04-20-2031 Urine microalbumin profile DTaP,Tdap,Td Vaccine (3 - Td or Tdap) [facility] Start: 04-02-2025 [facility] Start: 04-12-2024 Covid-19 Vaccine ( season) Covid-19 Vaccine ( season) [facility] Start: 04-12-2024 Influenza vaccination Influenza Vaccine (#1) [facility] Start: 02-23-2023 Urine microalbumin profile DTAP,TDAP,TD (2 - Td or Tdap) [facility] Start: 10-18-2022 Patient discharge [facility] Start: 04-12-2022 Influenza vaccination INFLUENZA (#1) [facility] Start: 09-23-2021 COVID-19 VACCINE (4 - Booster for Moderna series) COVID-19 VACCINE (4 - Booster for Moderna series) [facility] Start: 08-12-2021 DEPRESSION ASSESSMENT DEPRESSION ASSESSMENT [facility] Start: 2020 COLOGUARD (FIT-DNA) COLOGUARD (FIT-DNA) [facility] Start: 2020 Colonoscopy COLONOSCOPY [facility] Start: 2020 COLORECTAL CANCER SCREENING COLORECTAL CANCER SCREENING [facility] Start: [address] COLONOGRAPHY [facility] Start: 2020 DIABETES SCREEN DIABETES SCREEN [facility] Start: 2020 Diabetes Screening Diabetes Screening [facility] Start: 2020 FECAL OCCULT BLOOD FECAL OCCULT BLOOD [facility] Start: 2020 Screening for malignant neoplasm of colon [facility] Start: 2020 SIGMOIDOSCOPY SIGMOIDOSCOPY [facility] Start: 2010 Lipid panel Lipid Screening [facility] Start: 2010 LIPID SCREEN LIPID SCREEN [facility] Start: 1994 Hepatitis B Vaccine (1 of 3 - 19+ 3-dose series) Hepatitis B Vaccine (1 of 3 - 19+ 3-dose series) [facility] Start: 1993 Anxiety Screening Anxiety Screening [facility] Start: 1993 Depression Screening Depression Screening [facility] Start: 1993 HEPATITIS C SCREENING HEPATITIS C SCREENING [facility] Start: 1993 Hepatitis C screening Hepatitis C Screening [facility] Start: 1993 HIV SCREENING HIV SCREENING [facility] Start: 1993 HIV screening HIV Screening [facility] Start: 1975 HEPATITIS B (1 of 3 - 3-dose series) HEPATITIS B (1 of 3 - 3-dose series) [facility] Patient Education [facility] Work Phone: Patient referral [facility] Work Phone: [facility] Immunizations Immunization Date Immunization Notes Care Provider Zhang tavares 05-20-2020 influenza virus vaccine, unspecified formulation Estrella Esquivel APRN.DIRECTOR OF CORPORATE MARKETING Work Phone: [facility] 09-16-2019 influenza, injectabl e, quadrivalent, preservative free Dr. Casey Serrato MD Work Phone: [facility] 09-16-2019 influenza, seasonal, injectable Dr. Casey Serrato Work Phone: [facility] 02-23-2013 tetanus toxoid, redu chase diphtheria toxoid, and acellular pertussis vaccine, adsorbed Anne Joseph APRN.CNP Work Phone: [facility] Payers Date Payer Category Payer Self-pay [id number] 2022 Private Health Insurance [id number] 2019 Private Health Insurance [id number] 2012 Unknown [facility] [place] [id number] b Unknown [id number] Unknown [id number] Unknown [id number] Unknown [id number] Unknown [id number] Social History Date Type Detail Facility Start: 07-12-2022 End: 04-02-2025 Tobacco smoking status NHIS Never smoked tobacco [facility] Start: 07-12-2022 Tobacco use and exposure Smokeless tobacco non-user [facility] Start: 07-12-2022 End: 11-15-2024 Alcohol intake Lifetime non-drinker (finding) [facility] Start: 1975 Sex Assigned At Not on file [facility] Start: 07-02-2022 End: 07-12-2022 Exposure to SARS-CoV-2 (event) Not sure [facility] Work Phone: Start: 09-20-2022 Tobacco smoking status NHIS Unknown if ever smoked [facility] Start: 03-30-2021 None [facility] Start: 09-16-2019 Spouse/ Signif icant Other [facility] Start: 03-30-2021 Non-smoker [facility] Start: 1975 Sex Assigned At Male W [facility] Start: 07-20-2020 End: 11-15-2024 History of Social function [facility] Start: 07-20-2020 End: 11-15-2024 Tobacco use panel [facility] National Score (1-100), lower number is lower risk Not on file [facility] Medical Equipment Procedure Code Equipment Code Equipment Origin al Text Equipment Identifier Dates MESH,PRO AMBULANCE DRIVER [id number] FDA Start: 10-18-2022 MESH,PRO AMBULANCE DRIVER [id number] FDA Start: 10-18-2022 MESH,PRO AMBULANCE DRIVER [id number] FDA Start: 10-18-2022 Goals Date Patient Goal Desired Activity /State Functional Status Date Assessment Result Facility 08-21-2014 Are you deaf, or do you have serious difficulty hearing No 08/21/2014 9:11 AM Ana Wang LPN No [facility] 08-21-2014 Are you blind, or do you have serious difficulty seeing, even when wearing glasses No 08/21/2014 9:11 AM Ana Wang LPN No [facility] 08-21-2014 Do you have serious difficulty walking or climbing stairs No 08/21/2014 9:11 AM Ana Wang LPN No [facility] 08-21-2014 Do you have difficul ty dressing or bathing No 08/21/2014 9:11 AM Ana Wang LPN No [facility] 08-21-2014 Because of a physica l, mental, or emotional condition, do you have difficulty doing errands alone such as visiting a physician's office or shopping No 08/21/2014 9:11 AM Ana Wang LPN No [facility] Mental Status Date Assessment Result Facility 04-02-2025 Cognitive function Drowsy [facility] Work Phone: 04-02-2025 Cognitive function Arousable To Voice/Nam e [facility] Work Phone: 10-18-2022 Cognitive function Level Of Cons ciousness Awake;Drowsy [facility] Work Phone: 10-18-2022 Cognitive function Voice/Name [facility] Work Phone: 08-21-2014 Because of a physica l, mental, or emotional condition, do you have serious difficulty concentrating, remembering, or making decisions No 08/21/2014 9:11 AM Ana Wang LPN No [facility] Clinical Notes 07-12-2022 to 05-04-2025 Note Date & Type Note Facility 05-04-2025 Progress note [facility] 05-04-2025 Progress note Note Date/Time May 04, 2025 3:18pm [facility] [address] [place] [address] OFFICE VISIT Date of Service: 05/04/25 MR#: [id number] Acct: [id number] Name: RUI TATUM Rep #: [id number] : 1975 Provider: Dr. Hermilo Mca MD Age/Sex: 49/M [place] [facility] [place]: Signed HPI HPI History of Present Illness Details: This is a 49-year-old male who presents to the office today for a cardiovascularoutpatient follow-up. He has a history of paroxysmal atrial fibrillation statuspost STEVEN guided cardioversion on 09/16/2019, hypertension, obstructive sleep apneawith a mouth.guard, and family history of coronary artery disease and atrial fibrillation. He had presented to the emergency room in March of this year with an episode of atrial fibrillation and underwent DC cardioversion. He does not know of any precipitating factors. This was his first episode in over 5 years. He has done well since then. He denies chest, arm, jaw, or neck discomfort. He denies palpitations. He denies bilateral lower extremity edema. He denies claudication. He denies shortness of breath with activity, shortness of breath at rest, orthopnea, or PND. He denies chronic cough. He denies significant, sudden weight gain. He denies lightheadedness, dizziness, near-syncope, or syncope. He denies blood inurine, blood in stool, or epistaxis. He denies fever with chills. He denies myalgia. He denies fatigue. His exercise level has remained stable. Intake Vital Signs 03/31/24 14:56 04/02/25 00:55 05/04/25 14:53 Height 5 ft 9 in 5 ft 9 in 5 ft 9 in Weight: 183 lb BMI 27.0 BP 135/85 H Blood Pressure Location Lt brachial Position Sitting Respiration 16 Pulse 85 Pulse Source Monitor Intake Visit Reasons: 1 Y FU [facility] Superintendent Required: No Accompanied by: Self Is patient in pain?: No Allergies No Known Allergies Allergy (Verified 05/04/25 14:56) Medications ?Medication ?Instructions ?Recorded ?Confirmed ?Type diltiazem HCl 120 mg See Rx Instructions .Route 0 01/25/25 05/04/25 Rx capsule,extended release 24 hr .COMPLEX #90 caps lisinopril 10 mg tablet 10 mg PO DAILY #90 TABLETS 0 05/04/25 05/04/25 Rx paroxetine HCl 20 mg tablet 20 mg PO QDAY 05/04/25 History Ejection fraction %: 65 PFSH Medical History Anxiety Alcohol use Migraine [...] S/P transesophageal echocardiogram (STEVEN) (09/16/19) Family History Father Myocardial infarction CAD (coronary artery disease) early 50s Stented coronary artery Hypertension Mother CAD (coronary artery disease) early 50s S/P CABG x 3 Atrial fibrillation Diabetes Social History Smoking Status: Never smoker alcohol intake: current alcohol intake frequency: holidays/special occasions only substance use type: does not use caffeine: Yes Type: coffee Number of servings: 1 ROS Const Const: Negative for fatigue, weakness, daytime sleepiness or difficulty sleeping ENT ENT: Negative for dizziness or Nosebleed/epistaxis Cardio Chest Pain: No Palpitations: No Edema: None Resp Respiratory: Negative for SOB with activity, SOB at rest, SOB orthopnea\SOB lying down or Cough GI GI: Negative nausea, vomiting or heartburn Neuro Neuro: Negative for dizziness, lightheadedness, near syncope or weakness Endo Endo: Negative for fatigue Cardiology Exam Const Appearance: cooperative, healthy appearing, [...] normal visual inspection and no JVD Carotids: normal carotid upstroke Chest Chest inspection: normal inspection of the chest, symmetric chest movement and normal respiratory effort; Negative cough Auscultation: Bilateral: Clear to Auscultation Cardio Rate: regular rate Rhythm: regular rhythm Heart sounds: S1 normal and S2 normal; Negative rub, gallop or murmur GI GI: normal to inspection Neuro General: patient alert, patient awake, patient oriented x3 and CN's II-XI intactbilaterally Skin Skin: no rashes or lesions noted Extremities Pulses: Normal: Right Posterior Tibial Pulse, Left Posterior Tibial Pulse, RightRadial Pulse and Left Radial Pulse Lower Extremity Edema: None: Bilateral Psych Psychological: normal affect Supplemental Info Supplemental Information Echocardiogram from 09/16/2019: Interpretation Summary The estimated ejection fraction is 65 %. Unable to assess diastolic dysfunction due to arrhythmia. Trivial mitral valve insufficiency. Trivial tricuspid valve insufficiency. Right ventricular systolic pressure estimated to be 34 mmHg. There is no comparison study available. Stress echocardiogram from 09/16/2019: Interpretation Summary The estimated ejection fraction is 65 %. Normal, adequate, treadmill echocardiogram. Negative for ischemia by EKG and echocardiographic criteria. No anginal symptoms noted. Average exercise capacity for age. Baselineatrial fibrillation which persisted during entire exercise test. Rare PVCs noted. Appropriate blood pressure response to exercise. Final LVEF is 75%. Test terminated the attainment target heart rate. Patient tolerated procedure well. No complications. Transesophageal echocardiogram from 09/16/2019: Interpretation Summary The estimated ejection fraction is 65 %. Bubble contrast study negative for right to left interatrial shunt. The left atrium is mildly enlarged. No thrombus is detected in the left atrial appendage. Trivial mitral valve insufficiency. Trivial tricuspid valve insufficiency. Right ventricular systolic pressure estimated to be 33 mmHg. Patient appears to be in atrial fibrillation. Labs: LDL Cholesterol, (0-130) 79 mg/dL HDL Cholesterol, (40-) 42 mg/dL Cholesterol, (<=200) 156 mg/dL Triglycerides, (-199) 69 mg/dL Diagnostics: Electrocardiogram Echocardiogram Transesophageal Echocardiogram Stress Echocardiogram Chest X-Ray Past Visits: Cardiology Visit Today Assessment and Plan Assessment and Plan (1) Paroxysmal a-fib: Status: Chronic Plan: His [id number] score is 1 (hypertension). He appears to be in a regular rhythm on exam. His occasional palpitations occur once in a blue torre and areshort lasting, less than a minute. At this time, he will continue diltiazem therapy and we will continue to monitor. Given his strong family history of coronary artery disease, he was reminded of the importance of risk factor and lifestyle modification as well as ongoing lipid evaluation. He expects his cholesterol to be repeated with primary care physician in the near future. We briefly reviewed the role of coronary calcium scoring to guide decision regarding statin medication. (2) Essential hypertension: Status: Chronic Plan: Patient's blood pressure is not very well-controlled my recommendation is to increase the lisinopril to 10 mg a day and discontinue the potassium and obtain an echocardiogram to reassess his ventricular function. (3) Atrial fibrillation with RVR: Status: Acute Orders: Orders Echo Complete Today I48.91 - Unspecified atrial fibrillation Medications: Changed From lisinopril 5 mg PO DAILY 90 TABLETS 3RF To lisinopril 10 mg PO DAILY 90 TABLETS 3RF Discontinued potassium chloride ER Discontinued Reason: Order Changed 20 mEq PO DAILY 90 TABLETS 3RF Plan Details Additional Comments: Thank you for allowing us to participate in the patients plan of care, if you have any questions please do not hesitate to call. This note was generated using a voice recognition system and there may be incorrect words, spelling or punctuation that were not noted when reviewing the office note prior to saving. Portions of this documentation were copied and pasted from previous office visitnotes to provide a cohesive continuity of the history. The note has been reviewed, edited, and updated, as necessary. Follow Up: 6 Months (r) Coding Level of Care Code Off vis,est,level 4 Diagnoses Paroxysmal a-fib I48.0 Essential hypertension I10 Atrial fibrillation with RVR I48.91 Coding Level of Care Code Off vis,est,level 4 Diagnoses Paroxysmal a-fib I48.0 Essential hypertension I10 Atrial fibrillation with RVR I48.91 Clinical Quality Measures Cardiac Ejection fraction %: 65 05/04/25 1531 <Electronically signed by Víctor Madsen> Date _ Víctor Mac MD Cosigner Signature: Date (if applicable) CC: Dr. Casey Serrato MD ~ [place] [employer] Work Phone: [phone]) 131-273508-22-2025 Discharge summary [facility] Medical Records Department [address] [place] [address] Emergency Department Summary 04/02/25 MR#: [id number] Acct: [id number] Name: RUI TATUM Rep #:[id number] : 1975 49 From: Delroy Muhammad DO PCP: Dr. Casey Serrato MD Status:REG E R Location: ED [facility] History of Present Illness Chief Complaint: Palpitations Informant: patient and spouse/S.O. Narrative Narrative: Patient is a 49-year-old male with past medical history of hypertension and paroxysmal atrial fibrillation. He states he is on Cardizem for this and has been taking as directed. He states that he goes into atrial fibrillation so rarely that he is not on anticoagulation. He reports that this eveningaround 05/21:30 he suddenly began to feel his heart racing and skipped beats. He states it felt just like his previous episodes of atrial fibrillation. He denies any excessive stimulant use or illicit drug use. He states that there has been no sick symptoms such as nausea vomiting or diarrhea. He denies any loss of blood. He states there has been no alcohol use or binges. He states hewaited roughly 2 hours to see if he would convert out of it but has not done so and therefore comes in for evaluation. [facility] Medical History Anxiety Alcohol use Migraine headache Heartburn CPAP (continuous positive airway pressure) dependence Hypertension History of stress test History of echocardiogram H/O transesophageal echocardiography (STEVEN) for monitoring Cardiology follow-up encounter History of atrial fibrillation Essential hypertension Hypersomnia Atrial fibrillation with RVR Paroxysmal a-fib Anxiety Home Medications ?Medication ?Instructions ?Recorded ?Last Taken ?Type lisinopril 5 mg tablet 5 mg PO DAILY #90 TABLETS Unknown Rx potassium chloride 20 mEq 20 meq PO DAILY #90 TABLETS 11/09/24 Unknown Rx tablet,extended release(part/cryst) diltiazem HCl 120 mg See Rx Instructions .Route 0 01/25/25 Unknown Rx capsule,extended release 24 hr .COMPLEX #90 caps Allergy/AdvReac Type Severity Reaction Status Date / Time No Known Allergies Allergy Verified 04/02/25 00:55 Family History (Updated 03/31/24 @ 15:16 by Raymond Bah [employer] ARTISTIC DIRECTOR, [employer] ARTISTIC DIRECTOR-C) Father Myocardial infarction CAD (coronary artery disease) early 50s Stented coronary artery Hypertension Mother CAD (coronary artery disease) early 50s S/P CABG x 3 Atrial fibrillation Diabetes Surgical History (Reviewed 03/31/24 @ 15:01 by Raymond Bah [employer] ARTISTIC DIRECTOR, [employer] ARTISTIC DIRECTOR-C) history of skin graft as a child history of finger reattached History of appendectomy History of cardioversion (09/16/19) S/P transesophageal echocardiogram (STEVEN) (09/16/19) Social History (Reviewed 03/31/24 @ 15:01 by Raymond Bah [employer] ARTISTIC DIRECTOR, [employer] ARTISTIC DIRECTOR-C) Smoking Status: Never smoker alcohol intake: current alcohol intake frequency: holidays/special occasions only substance use type: does not use caffeine: Yes Type: coffee Number of servings: 1 ROS ROS ED Constitutional Constitutional ED: Denies chills or fever(s) Eyes Eyes: Denies blurry vision or change in vision ENT ENT ED: Denies sore throat Cardiovascular Cardiovascular: Reports palpitations and racing heartbeat; Denies chest pain Respiratory/Chest Respiratory/Chest: Denies cough or dyspnea Gastrointestinal Gastrointestinal: Denies abdominal pain, diarrhea, nausea or vomiting Genitourinary Genitourinary ED: Denies dysuria or hematuria Musculoskeletal Musculoskeletal: Denies myalgias Integumentary Denies rash Neurologic Neurologic: Denies headache(s) Hematologic/Lymphatic Hematologic/Lymphatic: Denies easy bleeding or easy bruising EXAM Physical Exam Const Vital Signs: 04/02/25 00:55 04/02/25 01:06 04/02/25 01:38 Temperature 97.6 F L Temperature Source Oral Pulse Rate 120 H 91 Pulse Rate [1 (Initial Baseline)] Pulse Rate [2] Pulse Rate [3] Pulse Rate [4] Respiratory Rate 19 H Respiratory Rate [1 (Initial Baseline)] Respiratory Rate [2] Respiratory Rate [3] Respiratory Rate [4] Respiratory Effort Normal Blood Pressure 142/84 H 120/82 H Blood Pressure [1 (Initial Baseline)] Blood Pressure [4] Blood Pressure Mean 103 94 Baseline BP Pulse Ox 99 Oxygen Delivery Method Room Air Oxygen Delivery Method [1 (Initial Baseline)] Oxygen Delivery Method [2] Oxygen Delivery Method [3] Oxygen Delivery Method [4] Oxygen Flow Rate (L/min) Oxygen Flow Rate (L/min) [2] Oxygen Flow Rate (L/min) [3] Oxygen Flow Rate (L/min) [4] EtCo2 - Document during CPR and with ROSC EtCo2 - Document during CPR and with ROSC [1 (Initial Baseline)] EtCo2 - Document during CPR and with ROSC [2] EtCo2 - Document during CPR and with ROSC [3] EtCo2 - Document during CPR and with ROSC [4] 04/02/25 01:50 04/02/25 02:00 04/02/25 03:00 Temperature Temperature Source Pulse Rate 83 86 67 Pulse Rate [1 (Initial Baseline)] Pulse Rate [2] Pulse Rate [3] Pulse Rate [4] Respiratory Rate 18 16 18 Respiratory Rate [1 (Initial Baseline)] Respiratory Rate [2] Respiratory Rate [3] Respiratory Rate [4] Respiratory Effort Blood Pressure 111/84 H 113/87 H 111/85 H Blood Pressure [1 (Initial Baseline)] Blood Pressure [4] Blood Pressure Mean 93 95 93 Baseline BP Pulse Ox 98 98 98 Oxygen Delivery Method Room Air Room Air Room Air Oxygen Delivery Method [1 (Initial Baseline)] Oxygen Delivery Method [2] Oxygen Delivery Method [3] Oxygen Delivery Method [4] Oxygen Flow Rate (L/min) Oxygen Flow Rate (L/min) [2] Oxygen Flow Rate (L/min) [3] Oxygen Flow Rate (L/min) [4] EtCo2 - Document during CPR and with ROSC EtCo2 - Document during CPR and with ROSC [1 (Initial Baseline)] EtCo2 - Document during CPR and with ROSC [2] EtCo2 - Document during CPR and with ROSC [3] EtCo2 - Document during CPR and with ROSC [4] 04/02/25 03:09 04/02/25 03:31 04/02/25 03:31 Temperature 97.9 F Temperature Source Pulse Rate 81 Pulse Rate [1 (Initial Baseline)] 81 Pulse Rate [2] 78 Pulse Rate [3] 65 Pulse Rate [4] 65 Respiratory Rate 18 Respiratory Rate [1 (Initial Baseline)] 18 Respiratory Rate [2] 18 Respiratory Rate [3] 18 Respiratory Rate [4] 18 Respiratory Effort Blood Pressure 126/99 H Blood Pressure [1 (Initial Baseline)] 126/99 H Blood Pressure [4] 107/81 H Blood Pressure Mean Baseline BP 126/99 Pulse Ox 99 Oxygen Delivery Method Room Air Oxygen Delivery Method [1 (Initial Baseline)] Room Air Oxygen Delivery Method [2] Nasal Cannula Oxygen Delivery Method [3] Nasal Cannula Oxygen Delivery Method [4] Nasal Cannula Oxygen Flow Rate (L/min) Oxygen Flow Rate (L/min) [2] 2 Oxygen Flow Rate (L/min) [3] 2 Oxygen Flow Rate (L/min) [4] 2 EtCo2 - Document during CPR and with ROSC 40 38 EtCo2 - Document during CPR and with ROSC [1 (Initial Baseline)] 38 EtCo2 - Document during CPR and with ROSC [2] 39 EtCo2 - Document during CPR and with ROSC [3] 37 EtCo2 - Document during CPR and with ROSC [4] 37 04/02/25 03:45 Temperature Temperature Source Pulse Rate 67 Pulse Rate [1 (Initial Baseline)] Pulse Rate [2] Pulse Rate [3] Pulse Rate [4] Respiratory Rate 16 Respiratory Rate [1 (Initial Baseline)] Respiratory Rate [2] Respiratory Rate [3] Respiratory Rate [4] Respiratory Effort Blood Pressure 108/81 H Blood Pressure [1 (Initial Baseline)] Blood Pressure [4] Blood Pressure Mean Baseline BP Pulse Ox 98 Oxygen Delivery Method Room Air Oxygen Delivery Method [1 (Initial Baseline)] Oxygen Delivery Method [2] Oxygen Delivery Method [3] Oxygen Delivery Method [4] Oxygen Flow Rate (L/min) 0 Oxygen Flow Rate (L/min) [2] Oxygen Flow Rate (L/min) [3] Oxygen Flow Rate (L/min) [4] EtCo2 - Document during CPR and with ROSC 42 EtCo2 - Document during CPR and with ROSC [1 (Initial Baseline)] EtCo2 - Document during CPR and with ROSC [2] EtCo2 - Document during CPR and with ROSC [3] EtCo2 - Document during CPR and with ROSC [4] Positive well nourished and well developed General Appearance ED: well developed; Negative for pallor HEENT HEENT Narrative: Normocephalic atraumatic Mallampati score of 2 Eyes PERRL and EOMs intact bilaterally General Eye ED: Negative for pale conjunctiva or scleral icterus Neck supple and no JVD Chest Wall palpation of chest normal Resp normal respiratory effort and clear to auscultation bilaterally Cardio Rate: other Other Details: Irregularly irregular rhythm with slightly tachycardic rate consistent with atrial fibrillation with rapid ventricular response GI normal to inspection, nondistended, normoactive bowel sounds, non-tender, non- distended and no masses Auscultation: normoactive bowel sounds Palpation: soft Extremity normal to inspection Extremity Narrative: No asymmetric edema no pitting edema negative Homans' sign bilaterally Neuro oriented x3, CN's II-XII intact bilaterally and no sensory deficits noted Sensorium / Orientation: alert Motor Exam: strength 5/5 throughout Psych mental status grossly normal Skin no rashes or lesions noted General Skin Exam: Negative for jaundice or pallor MDM MDM MDM Narrative Medical decision making narrative: Patient arrived to the ER technically in A-fib with RVR as his heart rate was approximately 120. Hehas a known history of this and is on Cardizem. He states he has been taking as directed. He deniesany symptoms such as vomiting or diarrhea which could lead to dehydration or electrolyte abnormality. He denies any excessive stimulant use or illicit drug use or alcohol use which could have precipitated atrial fibrillation as well. In order to rule out MALENA or electrolyte abnormality or acute blood loss anemia or thyroid disorder I did check basic lab. Labs revealed no clinically significant findings. He was given Lopressor as he had a breakthrough event of A-fib despite taking his Cardizem. The Lopressor reduced his heart rate to approximately 65 but despite the reduction in rate he remained in atrial fibrillation. I discussed with patient that at this time he is hemodynamically stable and his A-fib is known. Therefore we have the option of continuing his diltiazem and adding Eliquis and he can follow-up with the senior manufacturing test engineer and hope that there is spontaneous cardioversion while waiting for the appointment. Other option is to perform a synchronized cardioversion at this time as he is only been in atrial fibrillation for a few hours the chance of a clot development is extremely low. Patient states he has been through the cardioversion in the past and would prefer that that be per formed at this time to convert him out of A-fib as he does not want to use anticoagulation. Therefore the patient was cardioverted as documented below. He had returned to normal sinus rhythm and his vitals remained stable and therefore he is otherwise safe for discharge Patient was given a total of 50 mg of propofol and 2.5 mg of Versed. Following conscious sedation the patient underwent synchronized cardioversion at 100 J. After 1 synchronized cardioversion the patient converted to normal sinus rhythm. This was confirmed by twelve-lead EKG. patient tolerated procedure well without complication History & Record Review Discussion w/independent historian: Patient and Significant other Lab Data Attestation: I reviewed the patient's lab results. Labs: Laboratory Results - last 24 hr 04/02/25 01:00 WBC 5.8 RBC 4.70 Hgb 15.0 Hct 42.9 MCV 91.3 MCH 31.9 MCHC 35.0 RDW Std Deviation 40.1 RDW Coeff of Harvey 12.1 Plt Count 206 MPV 10.0 Immature Gran % (Auto) 0.500 Neut % (Auto) 46.6 L Lymph % (Auto) 41.3 H Harmon % (Auto) 9.5 Eos % (Auto) 1.2 Baso % (Auto) 0.9 Absolute Neuts (auto) 2.7 Absolute Lymphs (auto) 2.40 Nucleated RBC % 0 Sodium 141 Potassium 4.0 Chloride 108 Carbon Dioxide 21.0 Anion Gap 12 BUN 20 H Creatinine 1.20 Estim Creat Clear Calc 74.46 Est GFR (MDRD) Non-Af 74 BUN/Creatinine Ratio 16.3 Glucose 92 Calcium 8.8 Magnesium 2.3 H TSH 2.820 Procedures Procedural Sedation 1 (Initial Baseline): Consent Signed: Yes Any Problems With Anesthesia: No You/Your family experience fever (hyperthermia) w/anesthesia: No Sedation medication: Propofol Dose: 50 Route: IV Maliampati Score: Class II ASA Classification: II Discharge Plan Triage Chief Complaint: Palpitations ED Provider: Delroy Muhammad Dx/Rx/DC Orders Clinical Impression: Atrial fibrillation with RVR, Hypertension Instructions: AFib Dc Prescriptions: No Action potassium chloride 20 mEq tablet,ER particles/crystals 20 meq PO DAILY Qty: 90 3RF lisinopril 5 mg tablet 5 mg PO DAILY Qty: 90 3RF diltiazem HCl 120 mg capsule,extended release 24hr See Rx Instructions .ROUTE .COMPLEX Qty: 90 3RF Dose Instruction: TAKE 1 CAPSULE BY MOUTH DAILY Rx Instructions: TAKE 1 CAPSULE BY MOUTH DAILY Primary Care Provider: Casey Serrato Referrals: Víctor Mac MD [Med Staff - Active Staff] - Casey Serrato MD [Primary Care Provider] - Activity Restrictions/Additional Instructions: You are now back in normal sinus rhythm following synchronized cardioversion. Please continue all your home medications as directed by your doctor. Follow- upwith the senior manufacturing test engineer for repeat evaluation and return to the ER should you haveany further concerns Print Language: Yemeni Disposition Disposition: Home, Self Care What to do if you have Problems For any increased pain, shortness of breath, bleeding, nausea or vomiting, chestpain, or any unexpected problems, contact your Primary Care Provider. Call [facility] ([phone]) or report tothe closest Emergency Room. Call 911 if necessary. 04/02/25 9808 Cosigner Signature (if applicable): CC: Dr. Casey Serrato MD ~ Signed [facility]04-06-2025 Instructions* Patient Instructions* Estrella Esquivel APRN.CNP - 11/15/2024 10:39 AM EDT - Apply erythromycin ointment along the lash line of your left eye twice a day for 7 days. - If you do not notice any improvement within 48 hours or if the condition worsens, start the oral antibiotic as prescribed. [facility] NoteHNO ID: [id number] Author: ESTRELLA ESQUIVEL APRN.CNP Service: ? Author Type: Nurse Practitioner Type: Progress Notes Filed: 11/15/2024 10:52 Note Text: [facility] Subjective HPI Rui Tatum [...] The patient consented to the use of ambient AI software for draft documentation of the visit consistent with [facility]?s Notice of Privacy Practices. History and [...] oral antibiotic as prescribed. Follow up with adjunct sociology professor Diagnosis and treatment plan were discussed and questions were answered to the patient's satisfaction. Pt acknowledged understanding of concepts and follow up plan. Specific signs and symptoms that would indicate the need for higher level of care were discussed in detail warranting prompt ER evaluation. [facility]rella Esquivel [facility] History of Present illness Narrative* Estrella Esquivel APRN.DIRECTOR OF CORPORATE MARKETING - 11/15/2024 10:11 AM EDT Images from the original note were not [...] The patient consented to the use of [employer] software for draft documentation of the visit consistent with [facility] s Notice of Privacy Practices. History [...] oral antibiotic as prescribed. Follow up with adjunct sociology professor Diagnosis and treatment plan were discussed and questions were answered to the patient's satisfaction. Pt acknowledged understanding of concepts and follow up plan. Specific signs and symptoms that would indicate the need for higher level of care were discussed indetail warranting prompt ER evaluation. Estrella Esquivel APRN.DIRECTOR OF CORPORATE MARKETING documented in this encounterPark[facility]03-09-[address] Sharif [facility] October 18, 2022 11:54am Note Date/Time October 18, 2022 11:5 3am [facility] Medical Records Department [address] [place] [address] Instructions for Home/Discharge Instructions 10/18/22 1152 MR#: [id number] Acct: [id number] Name: RUI TATUM Rep #:[id number] : 1975 47 From: Tre palmer MD [...] (Remove clear bandages in 2 days, remove Steri- Stripsin 7 to 10 days.) Follow Up Care Please Follow Up With: Tre Sharif MD When: Please call to schedule 2 week follow up appointment. [phone] Test Results: Test results from this visit will be discussed in further detail at your follow- up appointment, if applicable. Discharge Plan Admission Attending Provider: Tre Sharif Primary Care Provider: Casey Serrato Discharge Orders/Prescriptions Prescriptions: New oxycodone 5 [...] CC: Dr. Casey Serrato MD ~ Signed [facility] Work Phone: [phone] History and physical note Author Dr. Sharif [facility] October 18, 2022 10:28am Note Date/Time October 18, 2022 10:2 8am [facility] Medical Records Department [address] [place] [address] History & Physical Exam 10/18/22 1027 MR#: [id number] Acct: [id number] Name: RUI TATUM Rep #:[id number] : 1975 47 From: Tre palmer MD PCP: Dr. Casey Serrato MD Status:REG S [place] Location: [place] [address] History and Physical Date of Admission: 10/18/22 Intake Vital Signs ? 09/20/2314:00 Height 5 ft 8 in Weight: 186 lb BMI 28.3 BP 132/83 H Blood Pressure Location Lt brachial Position Sitting Respiration 16 Pulse 83 Pulse Source Monitor Temp 97.9 F Temp Source Temporal Pulse Oximetry (%) 96 Oxygen Delivery Method room air Intake Visit Reasons:?Inguinal hernia Chief Complaint: L inguinal hernia Hospital Superintendent Required: No Is patient in pain?: No [...] General: cooperative Orientation: alert and oriented x3 [facility] Head: normal to inspection Neck Neck: normal [...] on the right. Tre Sharif MD Pager: [facility] [address] [place] [address], [address] [place] [address] Office: I have examined the patient and the H&P has been reviewed. There are no clinicalchanges since date of exam. 10/18/22 1028 <Electronically signed by Tre Sharif MD> Cosigner Signature (if applicable): CC: Dr. Tre Sharif MD; Dr. Casey Serrato MD~ Signed [facility] Work Phone: [phone] 739-942503-09-2023 Procedure [facility] 07-12-2022 History of Present illness Narrative* Anne Joseph APRN.DIRECTOR OF CORPORATE MARKETING - 07/12/2022 12:10 PM EST Subjective Cough [...] illness Anne Joseph APRN.CNP documented in this encounterPark[facility]12-[facility]22 Instructions* Patient Instructions* Anne Joseph APRN.CNP [...] expected course of illness Anne Joseph APRN.CNP Adult Sinusitis Patient Education What is Sinusitis? Sinusitis [wvbq-[id number]-[id number]-tis] is inflammation of the sinuses or swelling [...] help. You may be instructed to take [id number]-mba-[id number] medications for symptoms. including fever reducers acetaminophen or ibuprofen, nasal saline spray, cough and cold preparations and decongestants as prescribed by the physician, nurse practitioner or physician library technical assistant. Self-Care and Prevention: Rest Fluids for hydration Good hand washing Humidifier Avoid smoking and exposure to second hand smoke Avoid sick contacts documented in this encounterAtkins ClinicDischar summary Author Delroy [facility]Tr[facility] Note Date/Time April 02, 2025 3: 59am [facility] Medical Records Department [address] [facility] [address] Emergency Department Summary 04/02/25 MR#: [id number] Acct: [id number] Name: RUI TATUM Rep #:[id number] : 1975 49 From: Delroy Muhammad DO PCP: Dr. Casey Serrato MD Status:REG E R Location: ED HPI History of Present Illness Chief Complaint: Palpitations Informant: patient and spouse/S.O. Narrative Narrative: Patient is a 49-year-old male with past medical history of hypertension and paroxysmal atrial fibrillation. He states he is on Cardizem for this and has been taking as directed. He states that he goes into atrial fibrillation so rarely that he is not on anticoagulation. He reports that this evening around 10:30 he suddenly began to feel his heart racing and skipped beats. He states it felt just like his previous episodes of atrial fibrillation. He denies any excessive stimulant use or illicit drug use. He states that there has been no sick symptoms such as nausea vomiting or diarrhea. He denies any loss of blood. He states there has been no alcohol use or binges. He states hewaited roughly 2 hours to see if he would convert out of it but has not done so and therefore comes in for evaluation. [facility] Medical History Anxiety Alcohol use Migraine headache Heartburn CPAP (continuous positive airway pressure) dependence Hypertension History of stress test History of echocardiogram H/O transesophageal echocardiography (STEVEN) for monitoring Cardiology follow-up encounter History of atrial fibrillation Essential hypertension Hypersomnia Atrial fibrillation with RVR Paroxysmal a-fib Anxiety Home Medications ?Medication ?Instructions ?Recorded ?Last Taken ?Type lisinopril 5 mg tablet 5 mg PO DAILY #90 TABLETS Unknown Rx potassium chloride 20 mEq 20 meq PO DAILY #90 TABLETS 11/09/24 Unknown Rx tablet,extended release(part/cryst) diltiazem HCl 120 mg See Rx Instructions .Route 0 01/25/25 Unknown Rx capsule,extended release 24 hr .COMPLEX #90 caps Allergy/AdvReac Type Severity Reaction Status Date / Time No Known Allergies Allergy Verified 04/02/25 00:55 Family History (Updated 03/31/24 @ 15:16 by Raymond Bah [employer] ARTISTIC DIRECTOR, [employer] ARTISTIC DIRECTOR-C) Father Myocardial infarction CAD (coronary artery disease) early 50s Stented coronary artery Hypertension Mother CAD (coronary artery disease) early 50s S/P CABG x 3 Atrial fibrillation Diabetes Surgical History (Reviewed 03/31/24 @ 15:01 by Raymond Bah [employer] ARTISTIC DIRECTOR, [employer] ARTISTIC DIRECTOR-C) history of skin graft as a child history of finger reattached History of appendectomy History of cardioversion (09/16/19) S/P transesophageal echocardiogram (STEVEN) (09/16/19) Social History (Reviewed 03/31/24 @ 15:01 by Raymond Bah [employer] ARTISTIC DIRECTOR, [employer] ARTISTIC DIRECTOR-C) Smoking Status: Never smoker alcohol intake: current alcohol intake frequency: holidays/special occasions only substance use type: does not use caffeine: Yes Type: coffee Number of servings: 1 ROS ROS ED Constitutional Constitutional ED: Denies chills or fever(s) Eyes Eyes: Denies blurry vision or change in vision ENT ENT ED: Denies sore throat Cardiovascular Cardiovascular: Reports palpitations and racing heartbeat; Denies chest pain Respiratory/Chest Respiratory/Chest: Denies cough or dyspnea Gastrointestinal Gastrointestinal: Denies abdominal pain, diarrhea, nausea or vomiting Genitourinary Genitourinary ED: Denies dysuria or hematuria Musculoskeletal Musculoskeletal: Denies myalgias Integumentary Denies rash Neurologic Neurologic: Denies headache(s) Hematologic/Lymphatic Hematologic/Lymphatic: Denies easy bleeding or easy bruising EXAM Physical Exam Const Vital Signs: 04/02/25 00:55 04/02/25 01:06 04/02/25 01:38 Temperature 97.6 F L Temperature Source Oral Pulse Rate 120 H 91 Pulse Rate [1 (Initial Baseline)] Pulse Rate [2] Pulse Rate [3] Pulse Rate [4] Respiratory Rate 19 H Respiratory Rate [1 (Initial Baseline)] Respiratory Rate [2] Respiratory Rate [3] Respiratory Rate [4] Respiratory Effort Normal Blood Pressure 142/84 H 120/82 H Blood Pressure [1 (Initial Baseline)] Blood Pressure [4] Blood Pressure Mean 103 94 Baseline BP Pulse Ox 99 Oxygen Delivery Method Room Air Oxygen Delivery Method [1 (Initial Baseline)] Oxygen Delivery Method [2] Oxygen Delivery Method [3] Oxygen Delivery Method [4] Oxygen Flow Rate (L/min) Oxygen Flow Rate (L/min) [2] Oxygen Flow Rate (L/min) [3] Oxygen Flow Rate (L/min) [4] EtCo2 - Document during CPR and with ROSC EtCo2 - Document during CPR and with ROSC [1 (Initial Baseline)] EtCo2 - Document during CPR and with ROSC [2] EtCo2 - Document during CPR and with ROSC [3] EtCo2 - Document during CPR and with ROSC [4] 04/02/25 01:50 04/02/25 02:00 04/02/25 03:00 Temperature Temperature Source Pulse Rate 83 86 67 Pulse Rate [1 (Initial Baseline)] Pulse Rate [2] Pulse Rate [3] Pulse Rate [4] Respiratory Rate 18 16 18 Respiratory Rate [1 (Initial Baseline)] Respiratory Rate [2] Respiratory Rate [3] Respiratory Rate [4] Respiratory Effort Blood Pressure 111/84 H 113/87 H 111/85 H Blood Pressure [1 (Initial Baseline)] Blood Pressure [4] Blood Pressure Mean 93 95 93 Baseline BP Pulse Ox 98 98 98 Oxygen Delivery Method Room Air Room Air Room Air Oxygen Delivery Method [1 (Initial Baseline)] Oxygen Delivery Method [2] Oxygen Delivery Method [3] Oxygen Delivery Method [4] Oxygen Flow Rate (L/min) Oxygen Flow Rate (L/min) [2] Oxygen Flow Rate (L/min) [3] Oxygen Flow Rate (L/min) [4] EtCo2 - Document during CPR and with ROSC EtCo2 - Document during CPR and with ROSC [1 (Initial Baseline)] EtCo2 - Document during CPR and with ROSC [2] EtCo2 - Document during CPR and with ROSC [3] EtCo2 - Document during CPR and with ROSC [4] 04/02/25 03:09 04/02/25 03:31 04/02/25 03:31 Temperature 97.9 F Temperature Source Pulse Rate 81 Pulse Rate [1 (Initial Baseline)] 81 Pulse Rate [2] 78 Pulse Rate [3] 65 Pulse Rate [4] 65 Respiratory Rate 18 Respiratory Rate [1 (Initial Baseline)] 18 Respiratory Rate [2] 18 Respiratory Rate [3] 18 Respiratory Rate [4] 18 Respiratory Effort Blood Pressure 126/99 H Blood Pressure [1 (Initial Baseline)] 126/99 H Blood Pressure [4] 107/81 H Blood Pressure Mean Baseline BP 126/99 Pulse Ox 99 Oxygen Delivery Method Room Air Oxygen Delivery Method [1 (Initial Baseline)] Room Air Oxygen Delivery Method [2] Nasal Cannula Oxygen Delivery Method [3] Nasal Cannula Oxygen Delivery Method [4] Nasal Cannula Oxygen Flow Rate (L/min) Oxygen Flow Rate (L/min) [2] 2 Oxygen Flow Rate (L/min) [3] 2 Oxygen Flow Rate (L/min) [4] 2 EtCo2 - Document during CPR and with ROSC 40 38 EtCo2 - Document during CPR and with ROSC [1 (Initial Baseline)] 38 EtCo2 - Document during CPR and with ROSC [2] 39 EtCo2 - Document during CPR and with ROSC [3] 37 EtCo2 - Document during CPR and with ROSC [4] 37 04/02/25 03:45 Temperature Temperature Source Pulse Rate 67 Pulse Rate [1 (Initial Baseline)] Pulse Rate [2] Pulse Rate [3] Pulse Rate [4] Respiratory Rate 16 Respiratory Rate [1 (Initial Baseline)] Respiratory Rate [2] Respiratory Rate [3] Respiratory Rate [4] Respiratory Effort Blood Pressure 108/81 H Blood Pressure [1 (Initial Baseline)] Blood Pressure [4] Blood Pressure Mean Baseline BP Pulse Ox 98 Oxygen Delivery Method Room Air Oxygen Delivery Method [1 (Initial Baseline)] Oxygen Delivery Method [2] Oxygen Delivery Method [3] Oxygen Delivery Method [4] Oxygen Flow Rate (L/min) 0 Oxygen Flow Rate (L/min) [2] Oxygen Flow Rate (L/min) [3] Oxygen Flow Rate (L/min) [4] EtCo2 - Document during CPR and with ROSC 42 EtCo2 - Document during CPR and with ROSC [1 (Initial Baseline)] EtCo2 - Document during CPR and with ROSC [2] EtCo2 - Document during CPR and with ROSC [3] EtCo2 - Document during CPR and with ROSC [4] Positive well nourished and well developed General Appearance ED: well developed; Negative for pallor HEENT HEENT Narrative: Normocephalic atraumatic Mallampati score of 2 Eyes PERRL and EOMs intact bilaterally General Eye ED: Negative for pale conjunctiva or scleral icterus Neck supple and no JVD Chest Wall palpation of chest normal Resp normal respiratory effort and clear to auscultation bilaterally Cardio Rate: other Other Details: Irregularly irregular rhythm with slightly tachycardic rate consistent with atrial fibrillation with rapid ventricular response GI normal to inspection, nondistended, normoactive bowel sounds, non-tender, non-distended and no masses Auscultation: normoactive bowel sounds Palpation: soft Extremity normal to inspection Extremity Narrative: No asymmetric edema no pitting edema negative Homans' sign bilaterally Neuro oriented x3, CN's II-XII intact bilaterally and no sensory deficits noted Sensorium / Orientation: alert Motor Exam: strength 5/5 throughout Psych mental status grossly normal Skin no rashes or lesions noted General Skin Exam: Negative for jaundice or pallor MDM MDM MDM Narrative Medical decision making narrative: Patient arrived to the ER technically in A-fib with RVR as his heart rate was approximately 120. He has a known history of this and is on Cardizem. He states he has been taking as directed. He denies any symptoms such as vomiting or diarrhea which could lead to dehydration or electrolyte abnormality. He denies any excessive stimulant use or illicit drug use or alcohol use which could have precipitated atrial fibrillation as well. In order to rule out MALENA or electrolyte abnormality or acute blood loss anemia or thyroid disorder I did check basic lab. Labs revealed no clinically significant findings. He was given Lopressor as he had a breakthrough event of A-fib despite taking his Cardizem. The Lopressor reduced his heart rate to approximately 65 but despite the reduction in rate he remained in atrial fibrillation. I discussed with patient that at this time he is hemodynamically stable and his A-fib is known. Therefore we have the option of continuing his diltiazem and adding Eliquis and he can follow-up with the senior manufacturing test engineer and hope that there is spontaneous cardioversion while waiting for the appointment. Other option is to perform a synchronized cardioversion at this time as he is only been in atrial fibrillation for a few hours the chance of a clot development is extremely low. Patient states he has been through the cardioversion in the past and would prefer that that be performed at this time to convert him out of A-fib as he does not want to use anticoagulation. Therefore the patient was cardioverted as documented below. He had returned to normal sinus rhythm and his vitals remained stable and therefore he is otherwise safe for discharge Patient was given a total of 50 mg of propofol and 2.5 mg of Versed. Following conscious sedation the patient underwent synchronized cardioversion at 100 J. After 1 synchronized cardioversion the patient converted to normal sinus rhythm. This was confirmed by twelve-lead EKG. patient tolerated procedure well without complication History & Record Review Discussion w/independent historian: Patient and Significant other Lab Data Attestation: I reviewed the patient's lab results. Labs: Laboratory Results - last 24 hr 08/22/25 01:00 WBC 5.8 RBC 4.70 Hgb 15.0 Hct 42.9 MCV 91.3 MCH 31.9 MCHC 35.0 RDW Std Deviation 40.1 RDW Coeff of Harvey 12.1 Plt Count 206 MPV 10.0 Immature Gran % (Auto) 0.500 Neut % (Auto) 46.6 L Lymph % (Auto) 41.3 H Harmon % (Auto) 9.5 Eos % (Auto) 1.2 Baso % (Auto) 0.9 Absolute Neuts (auto) 2.7 Absolute Lymphs (auto) 2.40 Nucleated RBC % 0 Sodium 141 Potassium 4.0 Chloride 108 Carbon Dioxide 21.0 Anion Gap 12 BUN 20 H Creatinine 1.20 Estim Creat Clear Calc 74.46 Est GFR (MDRD) Non-Af 74 BUN/Creatinine Ratio 16.3 Glucose 92 Calcium 8.8 Magnesium 2.3 H TSH 2.820 Procedures Procedural Sedation 1 (Initial Baseline): Consent Signed: Yes Any Problems With Anesthesia: No You/Your family experience fever (hyperthermia) w/anesthesia: No Sedation medication: Propofol Dose: 50 Route: IV Maliampati Score: Class II ASA Classification: II Discharge Plan Triage Chief Complaint: Palpitations ED Provider: Delroy Muhammad Dx/Rx/DC Orders Clinical Impression: Atrial fibrillation with RVR, Hypertension Instructions: AFib Dc Prescriptions: No Action potassium chloride 20 mEq tablet,ER particles/crystals 20 meq PO DAILY Qty: 90 3RF lisinopril 5 mg tablet 5 mg PO DAILY Qty: 90 3RF diltiazem HCl 120 mg capsule,extended release 24hr See Rx Instructions .ROUTE .COMPLEX Qty: 90 3RF Dose Instruction: TAKE 1 CAPSULE BY MOUTH DAILY Rx Instructions: TAKE 1 CAPSULE BY MOUTH DAILY Primary Care Provider: Casey Serrato Referrals: Víctor Mac MD [Med Staff - Active Staff] - Casey Serrato MD [Primary Care Provider] - Activity Restrictions/Additional Instructions: You are now back in normal sinus rhythm following synchronized cardioversion. Please continue all your home medications as directed by your doctor. Follow-upwith the senior manufacturing test engineer for repeat evaluation and return to the ER should you haveany further concerns Print Language: Yemeni Disposition Disposition: Home, Self Care What to do if you have Problems For any increased pain, shortness of breath, bleeding, nausea or vomiting, chestpain, or any unexpected problems, contact your Primary Care Provider. Call [facility] ([phone]) or report to the closest Emergency Room. Call 911 if necessary. 04/02/25 0359 <Electronically signed by Delroy Muhammad DO> Cosigner Signature (if applicable): CC: Dr. Casey Serrato MD ~ Signed [facility] Work Phone: Evaluation note* Diagnosis Bacterial sinusitis- Primary Unspecified sinusitis (chronic) documented in this encounter [facility] note* Diagnosis Onset Date Resolution Status Left inguinal hernia acute [facility] Work Phone: Evaluation note* Diagnosis Eye problem- Primary Other eye problems documented in this encounter [facility] noteNo assessment information availableWOur [facility] Work Phone: Evaluation note* Diagnosis Onset Date Resolution Status Admit Date Atrial fibrillation with RVR acute May 04, 2025 2:45pm Essential hypertension chronic Se ptember 2024 2:45pm Paroxysmal a-fib chronic Septembe r 2024 2:45pm [facility] Work Phone: Hospital Discharge instructionsAdditional Instructions You are now back in normal sinus rhythm following synchronized cardioversion. Please continue all your home medications as directed by your doctor. Follow-up with the senior manufacturing test engineer for repeat evaluation and return to the ER should you have any further concernsWOur [facility] of [facility] Work Phone: Reason for referral (narrative)No reason for referral information availableWOur Lady of Mer[facility] Work Phone: Chief Complaint and Reason for Visit Chief Complaint Inguinal hernia PREOP robotic lt poss bilateral inguinal hernia robotic lt poss bilateral inguinal hernia Reason for Visit Left inguinal hernia Chief Complaint Admit Date palpitations April 02, 2025 12 :54am Chief Complaint Admit Date palpitations April 02, 2025 12 :54am 1 Y FU May 04, 2025 2:45pm Reason for Visit Admit Date Atrial fibrillation with RVR April 132024 2:45pm Essential hypertension May 04, 2 025 2:45pm Paroxysmal a-fib May 04, 2025 2:45pm Family History No Family History Records Found [...] Will No September 16 2:14am Power of Smooth Stucco Resurfacer No September 16, 2019 2:14am Advance Directive Response Recorded Date/ Time Do you have a Healthcare Power of Smooth Stucco Resurfacer? No April 02, 2025 1:06am Advance Directive Response Recorded Date/ Time Living Will No October 02, 023 12:23pm Do you have a Healthcare Power of Smooth Stucco Resurfacer? No October 02, 2022 12:23pm Do you have a Healthcare Power of Smooth Stucco Resurfacer? No April 02, 2025 1:06am Summary Purpose Additional Source Comments Source Comments (unrecognize d section and content) In the event this informatio n is protected by the Federal Confidentiality of Alcohol and Drug Abuse Patient Records regulations: The Federal rules restrict any use of the information to criminally investigate or prosecute any alcohol or drug abuse patient.[facility] HospitalIn the event this information is protected by the Federal Confidentiality of Alcohol and Drug Abuse Patient Records regulations: The Federal rules restrict any use of the information to criminally investigate or prosecute any alcohol or drug abuse patient.[facility] Reason for Visit (unrecogniz ed section and content) Reason Comments Cough Pt reported nasal co ngestion, Smith, x1 wk. Reason Comments Eye Problem Left eyelid redness, swelling, sore and itchy x 2 weeks Care Teams (unrecognized sec tion and content) [facility] Teacher Relationship Specialty Start Date End Date Casey Serrato MD [address] [facility] [address] [place] [address] PCP - General Family Medicine 07/12/22 Team Status: Active Member Role Status Dates Dr. Parveen Feng MD Family Provider Active Dr. Casey Serrato MD Primary Care Provider Active Team Status: Inactive Member Role Status Dates Dr. Casey Serrato MD Primary Care Provider, Referring Provider Active Dr. rTe Sharif MD Attending Provider Active Team Status: [...] MD Attending Provider, Referr ing Provider Active [facility] Teacher Relationship Specialty Start Date End Date Casey Serrato MD [address] [facility] [address] [place] [address] PCP - General Family Medicine 07/12/22 Team [...] December 23, 2024 End: December 23, 2024 Team Status: Active Member Role/Relationship Status Dates Dr. Casey Serrato MD Primary Care Provider Active Team Status: Inactive Member Role/Relationship Status Dates Dr. Casey Serrato MD Primary Care Provider Active Start: December 23, 2024 End: December 23, 2024 Dr. Casey Serrato MD Attending Provider Active Start: December 23, 2024 End: December 23, 2024 Dr. Casey Serrato MD Referring Provider Active Start: December 23, 2024 End: December 23, 2024 Team Status: Inactive Member Role/Relationship Status Dates Dr. Casey Serrato MD Primary Care Provider Active Start: April 02, 2025 End: April 02, 2025 Dr. Delroy Muhammad DO Emergency Provider Active Start: April 02, 2025 End: April 02, 2025 Team Status: Active Member Role/Relationship Status Dates Dr. Casey Serrato MD Primary care physician Active Team Status: Inactive Member Role/Relationship Status Dates Dr. Casey Serrato MD Primary care physician Active Start: April 02, 2025 End: April 02, 2025 Dr. Delroy Muhammad DO Attending physician Active Start: April 02, 2025 End: April 02, 2025 Dr. Delroy Muhammad DO Emergency Department Physician A ctive Start: April 02, 2025 End: April 02, 2025 Team Status: Inactive Member Role/Relationship Status Dates Dr. Casey Serrato MD Primary care physician Active Start: May 04, 2025 End: May 04, 2025 Dr. Casey Serrato MD Referring Provider Active Start: May 04, 2025 End: May 04, 2025 Dr. Víctor Mac MD Attending physician Active Start: May 04, 2025 End: May 04, 2025 (unrecognized sect ion and content) No Status Records FoundNo Status Records Found INFORMATION SOURCE (unrecogn ized section and content) DATE CREATED AUTHOR 11/16/2024 [facility] DATE CREATED AUTHOR AUTHOR'S ORGANIZ ATION 06/19/2025 [facility] Goals (unrecognized section and content) Goals may be documented in a n alternate sectionGoals may be documented in an alternate sectionGoals may be documented in an alternate section FOR RECORDS PERTAINING TO PATIENTS [...] BE BASED ON THE PRIMARY CLINICAL RECORDS. [facility]. provides no warranty or guarantee of the accuracy or completeness of information in this document.
== END | disposition home or self-care (01) ==
LOC: CVS 07:44
PROVIDERS: PCP Family Medicine; Referring Provider Internal Medicine Cardiovascular Disease; Visit Provider Internal Medicine Cardiovascular Disease
DX: I48.91 Unspecified atrial fibrillation (principal)
CPT/HCPCS: 93306

== ENCOUNTER → 2025-07-07 | Outpatient (CLI) | payer OTHER, SELFPAY ==
--- OUTSIDE RECORDS SUMMARY | 2025-07-07 07:15 | XMS RPT_ITS | CCD ---
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 Renee Attending Physician Casey Serrato Referring Unavailable Víctor Mac Attending Unavailable Casey [...] Comment on above: [facility] tamsulosin hydrochloride 0.4 mg oral capsule (2 sources) alpha-Adrenergic Alfonso Start: 05-03-2016 take 1 capsule by mouth once daily tamsulosin ER (FLOMAX) 0.4 mg cp24 Take 1 capsule by mouth once daily. 90 capsule 4 05/03/2016 Active Comment on above: Take 1 capsule by mo [facility] once daily. Completed/Discontinued Medications Medication Drug [...] Facility Cardiology Visit Reporton Cardiology Visit Report [facility] [address] [place] [address] OFFICE VISIT Date of Service: 05/04/25 MR#: [id number] Acct: [id number] Name: RUI TATUM Rep #: [id number] : 1975 Provider: Dr. Víctor Mac MD Age/Sex: 49/M Location[facility] Status: Signed HPI HPI History of [...] Monitor Intake Visit Reasons: 1 Y FU [employer] Planner Required: No Accompanied by: Self Is patient [...] to Aus (more content not included)... Normal [facility] 12 Lead EKGon 04-02-2025 12 Lead EKG [facility] Cardiovascular Services [address] [place] [address] 12 Lead EKG 04/02/25 0057 MR#: [id number] Acct: [id number] Name: RUI TATUM Marilyn Rep #: [id number] : 1975 49 From: Trav Barnes MD [...] ECG Confirmed by NAGAARLENE CHAIREZ MD ([id number]), editor magazine RAHEEM JONES ([id number]) on 04/05/2025 7:29:38 AM Referred By: JA Confirmed By: ARLENE BARNES MD 04/05/25728 Date Trva Barnes MD CC: Dr. Casey Serrato MD; Delroy Muhammad DO Signed [facility] 12 Lead EKG [facility] Cardiovascular Services [address] [place] [address] 12 Lead EKG 04/02/25 0340 MR#: [id number] Acct: [id number] Name: RUI TATUM Rep #: [id number] : 1975 49 From: Trav Barnes MD [...] ECG Confirmed by ARLENE BARNES MD ([id number]), editor magazine RAHEEM JONES ([id number]) on 04/05/2025 7:29:48 AM Referred By: Confirmed By: ARLENE BARNES MD 04/05/25728 Date Trav Barnes MD CC: Dr. Casey Serrato MD; Delroy Muhammad DO Signed [facility] Absolute lymphocyte countOrd ered By: Delroy Muhammad on 04-02-2025 Lymphocytes Auto (Unsp spec) [#/Vol] 2.40 10*3/uL 0.83-4.51 [facility] Absolute neutrophil countOrd ered By: Delroy Muhammad on 04-02-2025 Neutrophils (Bld) [#/Vol] 2.7 10*3/uL 2.0-7.7 [facility] Anion gap in Serum or Plasma Ordered By: Delroy Muhammad on 04-02-2025 Anion gap [Moles/Vol] 12 mmol/L 5-15 [facility] Automated blood erythrocyte countOrdered By: Delroy Muhammad on 04-02-2025 RBC (Bld) [#/Vol] 4.70 10*6/uL Normal 4.6-6.2 [facility] Comment on above: Performed By: #### L 100.0100, L500.2500, L501.5200, L501.9520 #### [facility] [address] [place] [place], [address] Automated blood hematocrit ( percentage)Ordered By: Delroy Muhammad on 04-02-2025 Hematocrit (Bld) [Volume fraction] 42.9 % Normal 40-54 [facility] Comment on above: Performed By: #### L 100.0100, L500.2500, L501.5200, L501.9520 #### [facility] [address] [place] [place], [address] Automated lymphocyte count a s percentage of total leukocytesOrdered By: Delroy Muhammad on 04-02-2025 Lymphocytes/100 WBC Auto (Unsp spec) 41.3 % High 19-41 [facility] BUN/creatinine ratioOrdered By: Delroy Muhammad on 04-02-2025 Urea nitrogen/Creatinine [Mass ratio] 16.3 mg/mg 10- [facility] Basic Metabolic Profile (BMP )on 04-02-2025 BUN/CRE 16.3 RATIO Normal - [facility] Comment on above: Performed By: #### L 100.0100, L500.2500, L501.5200, L501.9520 #### [facility] [address] [place], [address] ECRCL 74.46 ml/min Normal 50-250 [facility] Comment on above: Performed By: #### L 100.0100, L500.2500, L501.5200, L501.9520 #### [facility] [address] [place], [address] GAP 12 Normal 5-15 [facility] Comment on above: Performed By: #### L 100.0100, L500.2500, L501.5200, L501.9520 #### [facility] [address] [place], [address] Potassium [Moles/Vol] 4.0 mmol/L Normal 3.3-5.1 [facility] Comment on above: Performed By: #### L 100.0100, L500.2500, L501.5200, L501.9520 #### [facility] [address] [place], [address] Basophil percentageOrdered B y: Delroy Muhammad on 04-02-2025 Basophils/100 WBC (Bld) 0.9 % Normal 0-1 [facility] Comment on above: Performed By: #### L 100.0100, L500.2500, L501.5200, L501.9520 #### [facility] [address] [place], [address] CBC W/Diff, Automatedon 03-13 Absolute Lymph 2.40 X10 3/uL Normal 0.83-4.51 [facility] Comment on above: Performed By: #### L 100.0100, L500.2500, L501.5200, L501.9520 #### [facility] [address] [place], [address] Absolute Neut 2.7 X10 3/uL Normal 2.0-7.7 [facility] Comment on above: Performed By: #### L 100.0100, L500.2500, L501.5200, L501.9520 #### [facility] [address] [place], [address] IG% 0.500 Normal 0.0-0.9 [facility] Comment on above: Result Comment: IG% - Immature Granulocytes (promyelocytes, myelocytes and metamyelocytes) > 1% indicates that a LEFT SHIFT is Present. Performed By: #### L 100.0100, L500.2500, L501.5200, L501.9520 #### [facility] [address] [place], [address] Lymphocytes/100 WBC (Bld) 41.3 % High 19-41 [facility] Comment on above: Performed By: #### L 100.0100, L500.2500, L501.5200, L501.9520 #### [facility] [address] [place], [address] Nucleated RBC (Bld) [#/Vol] 0 10*3/uL Normal 0-5 [facility] Comment on above: Performed By: #### L 100.0100, L500.2500, L501.5200, L501.9520 #### [facility] [address] [place], [address] RDW SD 40.1 fl Normal 35.1-43.9 [facility] Comment on above: Performed By: #### L 100.0100, L500.2500, L501.5200, L501.9520 #### [facility] [address] [place], [address] Carbon dioxide, total [Moles /volume] in Central venous bloodOrdered By: Delroy Muhammad on 04-02-2025 CO2 [Moles/Vol] 21.0 mmol/L Normal 21.0-32.0 [facility] Comment on above: Performed By: #### L 100.0100, L500.2500, L501.5200, L501.9520 #### [facility] [address] [place], [address] Chloride assayOrdered By: Ade Muhammad on 04-02-2025 Chloride [Moles/Vol] 108 mmol/L Normal 98-108 [facility] Comment on above: Performed By: #### L 100.0100, L500.2500, L501.5200, L501.9520 #### [facility] [address] [place], [address] Emergency Department Summary on 04-02-2025 Emergency Department Summary [facility] Medical Records Department [address] [place] [address] Emergency Department Summary 04/02/25 MR#: [id number] Acct: [id number] Name: RUI TATUM Rep #: [id number] : 1975 49 From: Delroy Muhammad DO [...] so and therefore comes in for evaluation. [facility] Medical History Anxiety Alcohol use Migraine headache [...] (Updated 03/31/24 @ 15:16 by Raymond Bah COLOR DEVELOPER, COLOR DEVELOPER-C) Father Myocardial infarction CAD (coronary artery disease) early 50s Stented coronary artery Hypertension Mother CAD (coronary artery disease) early 50s S/P CABG x 3 Atrial fibrillation Diabetes Surgical History history of skin graft as a child history of finger reattached History of appendectomy History of cardioversion (09/16/19) S/P transesophageal echocardiogram (STEVEN) (09/16/19) Social History Smoking Status: Never smoker alcohol [...] and wit (more content not included)... Normal [facility] Eosinophil percentageOrdered By: Delroy Muhammad on 04-02-2025 Eosinophils/100 WBC (Bld) 1.2 % Normal 0-5 [facility] Comment on above: Performed By: #### L 100.0100, L500.2500, L501.5200, L501.9520 #### [facility] [address], [id number] (505) Erythrocyte distribution wid th ratioOrdered By: Delroy Muhammad on 04-02-2025 Erythrocyte distribution width (RBC) [Ratio] 12.1 % Normal 11.6-14.6 [facility] Comment on above: Performed By: #### L 100.0100, L500.2500, L501.5200, L501.9520 #### [facility] [address] [place], [address] Erythrocyte distribution wid th standard deviationOrdered By: Delroy Muhammad on 04-02-2025 Erythrocyte distribution width (RBC) [Ratio] 40.1 fl 35.1-43.9 [facility] Glomerular filtration rate ( GFR) estimation/1.73 sq m using serum, plasma, or whole bOrdered By: Delroy Muhammad on 04-02-2025 GFR/1.73 sq M.predicted among non-blacks MDRD (S/P/Bld) [Vol rate/Area] 74 mL/min/{1.73_m2} Normal >60 [facility] Comment on above: mL/min/1.73m2 CKD-EP I Creatinine Equation (2020) Result Comment: mL/m in/1.73m2 CKD-EPI Creatinine Equation (2020) Performed By: #### L 100.0100, L500.2500, L501.5200, L501.9520 #### [facility] [address] [place], [place], [id number] Hemoglobin measurementOrdere d By: Delroy Muhammad on 04-02-2025 Hemoglobin (Bld) [Mass/Vol] 15.0 g/dL Normal 13.0-16.5 [facility] Comment on above: Performed By: #### L 100.0100, L500.2500, L501.5200, L501.9520 #### [facility] [address] [place], [place], [address] Immature granulocytes/100 WB C Auto (Bld)Ordered By: Delroy Muhammad on 04-02-2025 Immature granulocytes/100 WBC (Bld) 0.500 % 0.0-0.9 [facility] Comment on above: IG% - Immature Granu locytes (promyelocytes, myelocytes and metamyelocytes) > 1% indicates that a LEFT SHIFT is Present. MCV (mean corpuscular volume ) determinationOrdered By: Delroy Muhammad on 04-02-2025 MCV (RBC) [Entitic vol] 91.3 fL Normal 80-94 [facility] Comment on above: Performed By: #### L 100.0100, L500.2500, L501.5200, L501.9520 #### [facility] [address] [place], [place], [address] Magnesiumon 04-02-2025 Magnesium [Mass/Vol] 2.3 mg/dL High 1.5-2.2 [facility] Comment on above: Performed By: #### L 100.0100, L500.2500, L501.5200, L501.9520 #### [facility] [address] [place], [address] Magnesium measurement (mass/ volume)Ordered By: Delroy Muhammad on 04-02-2025 Magnesium (Unsp spec) [Mass/Vol] 2.3 mg/dL High 1.5-2.2 [facility] Mean corpuscular hemoglobin (MCH) determinationOrdered By: Delroy Muhammad on 04-02-2025 MCH (RBC) [Entitic mass] 31.9 pg Normal 27.0-32.0 [facility] Comment on above: Performed By: #### L 100.0100, L500.2500, L501.5200, L501.9520 #### [facility] [address] [place], [address] Mean corpuscular hemoglobin concentration (MCHC) determinationOrdered By: Delroy Muhammad on 04-02-2025 MCHC (RBC) [Mass/Vol] 35.0 g/dL Normal 32-36 [facility] Comment on above: Performed By: #### L 100.0100, L500.2500, L501.5200, L501.9520 #### [facility] [address] [place], [address] Mean platelet volume determi nationOrdered By: Delroy Muhammad on 04-02-2025 Platelet mean volume (Bld) [Entitic vol] 10.0 fL Normal 6.2-12.0 [facility] Comment on above: Performed By: #### L 100.0100, L500.2500, L501.5200, L501.9520 #### [facility] [address] [place], [address] Monocyte percentageOrdered B y: Delroy Muhammad on 04-02-2025 Monocytes/100 WBC (Bld) 9.5 % Normal 0-10 [facility] Comment on above: Performed By: #### L 100.0100, L500.2500, L501.5200, L501.9520 #### [facility] [address] [place], [address] Neutrophil percentageOrdered By: Delroy Muhammad on 04-02-2025 Neutrophils/100 WBC (Bld) 46.6 % Low 47-70 [facility] Comment on above: Performed By: #### L 100.0100, L500.2500, L501.5200, L501.9520 #### [facility] [address] [place], [address] Nucleated red blood cell per centageOrdered By: Delroy Muhammad on 04-02-2025 Nucleated RBC/100 WBC (Bld) [Ratio] 0 % 0-5 [facility] Platelet countOrdered By: Ade Muhammad on 04-02-2025 Platelets (Bld) [#/Vol] 206 10*3/uL Normal 150-450 [facility] Comment on above: Performed By: #### L 100.0100, L500.2500, L501.5200, L501.9520 #### [facility] [address] [place], [address] Potassium measurement (mass/ volume)Ordered By: Delroy Muhammad on 04-02-2025 Potassium (Unsp spec) [Mass/Vol] 4.0 mmol/L 3.3-5.1 [facility] Serum creatinine measurement (mass/volume)Ordered By: Delroy Muhammad on 04-02-2025 Creatinine [Mass/Vol] 1.20 mg/dL Normal 0.70-1.20 [facility] Comment on above: Performed By: #### L 100.0100, L500.2500, L501.5200, L501.9520 #### [facility] [address] [place], [address] Serum glucose measurement (m ass/volume)Ordered By: Delroy Muhammad on 04-02-2025 Glucose [Mass/Vol] 92 mg/dL Normal 70-[address] [facility] Comment on above: Performed By: #### L 100.0100, L500.2500, L501.5200, L501.9520 #### [facility] [address] [place], [address] Serum or plasma calcium adrian urement (mass/volume)Ordered By: Delroy Muhammad on 04-02-2025 Calcium [Mass/Vol] 8.8 mg/dL Normal 7.6-11.[address] [facility] Comment on above: Performed By: #### L 100.0100, L500.2500, L501.5200, L501.9520 #### [facility] [address] [place], [address] Serum or plasma urea nitroge n measurement (mass/volume)Ordered By: Delroy Muhammad on 04-02-2025 Urea nitrogen [Mass/Vol] 20 mg/dL High 4-19 [facility] Comment on above: Performed By: #### L 100.0100, L500.2500, L501.5200, L501.9520 #### [facility] [address] [place], [address] Sodium levelOrdered By: Zhou Muhammad on 04-02-2025 Sodium [Moles/Vol] 141 mmol/L Normal 133-[address] [facility] Comment on above: Performed By: #### L 100.0100, L500.2500, L501.5200, L501.9520 #### [facility] [address] [place], [address] TSH DL <= 0.005 mIU/L QnOrde red By: Delroy Muhammad on 04-02-2025 TSH Qn 2.820 uIU/mL 0.300-4.200 [facility] Thyroid Stim Hormone (TSH)on 04-02-2025 TSH 2.820 uIU/mL Normal 0.300-4.200 [facility] Comment on above: Performed By: #### L 100.0100, L500.2500, L501.5200, L501.9520 #### [facility] [address] [place], [place], [address] White blood cell (WBC) count Ordered By: Delroy Muhammad on 04-02-2025 WBC (Bld) [#/Vol] 5.8 10*3/uL Normal 4.4-11.[address] [facility] Comment on above: Performed By: #### L 100.0100, L500.2500, L501.5200, L501.9520 #### [facility] [address] [place], [place], [address] Anion gap in Serum or Plasma Ordered By: Casey Serrato on 12-23-2024 Anion gap [Moles/Vol] 11 mmol/L 5-15 [facility] BUN/creatinine ratioOrdered By: Casey Serrato on 12-23-2024 Urea nitrogen/Creatinine [Mass ratio] 18.9 mg/mg 10-20 [facility] Bilirubin, totalOrdered By: Casey Serrato on 12-23-2024 Bilirubin [Mass/Vol] 1.70 mg/dL High 0.00-1.30 [facility] Calculated very low density lipoprotein (VLDL) cholesterol measurementOrdered By: Casey Serrato on 12-23-2024 Calculated very low density lipoprotein (VLDL) cholesterol measurement 14 mg/dL 5-40 [facility] Carbon dioxide, total [Moles /volume] in Central venous bloodOrdered By: Casey Serrato on 12-23-2024 CO2 [Moles/Vol] 23.0 mmol/L 21.0-32.0 [facility] Chloride assayOrdered By: Jeremiah Serrato on 12-23-2024 Chloride [Moles/Vol] 105 mmol/L 98-108 [facility] Comprehensive Metabolic Prof ilon 12-23-2024 Albumin [Mass/Vol] 4.5 g/dL Normal 3.5-5.[address] [facility] Comment on above: Performed By: #### L 500.4050, L509.3001, L500.4100, L501.9520 #### [facility] [address] [place], [address] Albumin/Globulin [Mass ratio] 1.7 {ratio} Normal 0.9-2.4 [facility] Comment on above: Performed By: #### L 500.4050, L509.3001, L500.4100, L501.9520 #### [facility] [address] [place], [address] ALK PHOS 71 U/L Normal 40-129 [facility] Comment on above: Performed By: #### L 500.4050, L509.3001, L500.4100, L501.9520 #### [facility] [address] [place], [address] ALT [Catalytic activity/Vol] 47 U/L Normal <=46 [facility] Comment on above: Performed By: #### L 500.4050, L509.3001, L500.4100, L501.9520 #### [facility] [address] [place], [address] AST [Catalytic activity/Vol] 31 U/L Normal <=37 [facility] Comment on above: Performed By: #### L 500.4050, L509.3001, L500.4100, L501.9520 #### [facility] [address] [place], [address] Bilirubin [Mass/Vol] 1.70 mg/dL High 0.00-1.30 [facility] Comment on above: Performed By: #### L 500.4050, L509.3001, L500.4100, L501.9520 #### [facility] [address] [place], [address] BUN/CRE 18.9 RATIO Normal 10-20 [facility] Comment on above: Performed By: #### L 500.4050, L509.3001, L500.4100, L501.9520 #### [facility] [address] [place], [address] Calcium [Mass/Vol] 9.1 mg/dL Normal 7.6-11.[address] [facility] Comment on above: Performed By: #### L 500.4050, L509.3001, L500.4100, L501.9520 #### [facility] [address] [place], [address] Chloride [Moles/Vol] 105 mmol/L Normal 98-108 [facility] Comment on above: Performed By: #### L 500.4050, L509.3001, L500.4100, L501.9520 #### [facility] [address] [place], [address] CO2 [Moles/Vol] 23.0 mmol/L Normal 21.0-32.0 [facility] Comment on above: Performed By: #### L 500.4050, L509.3001, L500.4100, L501.9520 #### [facility] [address] [place], [address] Creatinine [Mass/Vol] 1.25 mg/dL High 0.70-1.20 [facility] Comment on above: Performed By: #### L 500.4050, L509.3001, L500.4100, L501.9520 #### [facility] [address] [place], [address] GAP 11 Normal 5-15 [facility] Comment on above: Performed By: #### L 500.4050, L509.3001, L500.4100, L501.9520 #### [facility] [address] [place], [address] GFR/1.73 sq M.predicted among non-blacks MDRD (S/P/Bld) [Vol rate/Area] 71 mL/min/{1.73_m2} Normal >60 [facility] Comment on above: Result Comment: mL/m in/1.73m2 CKD-EPI Creatinine Equation (2020) Performed By: #### L 500.4050, L509.3001, L500.4100, L501.9520 #### [facility] [address] [place], [address] Globulin (S) [Mass/Vol] 2.7 g/dL Normal 2.2-4.2 [facility] Comment on above: Performed By: #### L 500.4050, L509.3001, L500.4100, L501.9520 #### [facility] [address] [place], [address] Glucose [Mass/Vol] 101 mg/dL High 70-[address] [facility] Comment on above: Performed By: #### L 500.4050, L509.3001, L500.4100, L501.9520 #### [facility] [address] [place], [address] Potassium [Moles/Vol] 4.2 mmol/L Normal 3.3-5.1 [facility] Comment on above: Performed By: #### L 500.4050, L509.3001, L500.4100, L501.9520 #### [facility] [address] [place], [address] Sodium [Moles/Vol] 139 mmol/L Normal 133-[address] [facility] Comment on above: Performed By: #### L 500.4050, L509.3001, L500.4100, L501.9520 #### [facility] [address] [place], [address] T PROT 7.1 g/dL Normal 5.9-8.4 [facility] Comment on above: Performed By: #### L 500.4050, L509.3001, L500.4100, L501.9520 #### [facility] [address] [place], [address] Urea nitrogen [Mass/Vol] 24 mg/dL High 4-19 [facility] Comment on above: Performed By: #### L 500.4050, L509.3001, L500.4100, L501.9520 #### [facility] [address] [place], [address] Glomerular filtration rate ( GFR) estimation/1.73 sq m using serum, plasma, or whole bOrdered By: Casey Serrato on 12-23-2024 GFR/1.73 sq M.predicted among non-blacks MDRD (S/P/Bld) [Vol rate/Area] 71 mL/min/{1.73_m2} >60 [facility] Comment on above: mL/min/1.73m2 CKD-EP I Creatinine Equation (2020) L509.3001on 12-23-2024 Testosterone [Mass/Vol] 584.00 ng/dL Normal 300-890 [facility] Comment on above: Performed By: #### L 500.4050, L509.3001, L500.4100, L501.9520 ####[facility] [address] [place], [address] LDL calc ser/plasOrdered By: Casey Serrato on 12-23-2024 Cholesterol in LDL [Mass/Vol] 100 mg/dL [facility] Comment on above: Kvmapdqrag=165-599 m g/dL & Higher Lkot=591 mg/dL or greater Laboratory - Chemistry and C hemistry - challengeOrdered By: Casey Serrato on 12-23-2024 AST [Catalytic activity/Vol] 31 U/L <38 [facility] Testosterone [Mass/Vol] 584.00 ng/dL 300-890 [facility] Lipid Profileon 12-23-2024 CHOL:HDL 3.71 Normal [facility] Comment on above: Performed By: #### L 500.4050, L509.3001, L500.4100, L501.9520 #### [facility] [address] [place], [address] Cholesterol [Mass/Vol] 156 mg/dL Normal <=200 [facility] Comment on above: Result Comment: Chol esterol level, Desirable <200 mg/dL Borderline high cholesterol 200-239 mg/dL High cholesterol >=240 mg/dL Recommendations of the NCEP Adult Treatment Panel for the following risk-cutoff thresholds for the [place] population. Performed By: #### L 500.4050, L509.3001, L500.4100, L501.9520 #### [facility] [address] [place], [address] Cholesterol in HDL [Mass/Vol] 42 mg/dL Normal [facility] Comment on above: Result Comment: Megan onal Cholesterol Education Program (NCEP) guidelines: <40 mg/dL: Low HDL-cholesterol (major risk factor for CHD) >= 60 mg/dL: High HDL-cholesterol (negative risk factor for CHD) HDL-cholesterol is affected by a number of factors, e.g. smoking, exercise, hormones, sex and age. Performed By: #### L 500.4050, L509.3001, L500.4100, L501.9520 #### [facility] [address] [place], [address] Cholesterol in LDL [Mass/Vol] 100 mg/dL Normal [facility] Comment on above: Result Comment: Bord mlbags=371-074 mg/dL Higher Htov=497 mg/dL or greater Performed By: #### L 500.4050, L509.3001, L500.4100, L501.9520 #### [facility] [address] [place], [address] Cholesterol in VLDL [Mass/Vol] 14 mg/dL Normal 5-40 [facility] Comment on above: Performed By: #### L 500.4050, L509.3001, L500.4100, L501.9520 #### [facility] [address] [place], [address] Triglyceride [Mass/Vol] 69 mg/dL Normal [facility] Comment on above: Result Comment: The drugs N-Acetylcysteine and Metamizole may falsely depress this assay. Normal range: <150 mg/dL Borderline High: 150-199 mg/dL High: 200-499 mg/dL Very High: >500 mg/dL Performed By: #### L 500.4050, L509.3001, L500.4100, L501.9520 #### [facility] [address] [place], [place], [address] Potassium measurement (mass/ volume)Ordered By: Casey Serrato on 12-23-2024 Potassium (Unsp spec) [Mass/Vol] 4.2 mmol/L 3.3-5.1 [facility] Screening total cholesterol/ high density lipoprotein (HDL) cholesterol ratioOrdered By: Casey Serrato on 12-23-2024 Cholesterol.total/Choles terol in HDL [Mass ratio] 3.71 {ratio} [facility] Serum creatinine measurement (mass/volume)Ordered By: Casey Serrato on 12-23-2024 Creatinine [Mass/Vol] 1.25 mg/dL High 0.70-1.20 [facility] Serum globulin measurementOr dered By: Casey Serrato on 12-23-2024 Globulin (S) [Mass/Vol] 2.7 g/dL 2.2-4.2 [facility] Serum glucose measurement (m ass/volume)Ordered By: Casey Serrato on 12-23-2024 Glucose [Mass/Vol] 101 mg/dL High 70-[address] [facility] Serum or plasma alanine edwards otransferase (ALT) measurementOrdered By: Casey Serrato on 12-23-2024 ALT [Catalytic activity/Vol] 47 U/L <47 [facility] Serum or plasma albumin adrian urement (mass/volume)Ordered By: Casey Serrato on 12-23-2024 Albumin [Mass/Vol] 4.5 g/dL 3.5-5.[address] [facility] Serum or plasma albumin/glob ulin mass ratioOrdered By: Casey Serrato on 12-23-2024 Albumin/Globulin [Mass ratio] 1.7 {ratio} 0.9-2.4 [facility] Serum or plasma alkaline tarah sphatase measurementOrdered By: Casey Serrato on 12-23-2024 ALP [Catalytic activity/Vol] 71 U/L 40-129 [facility] Serum or plasma calcium adrian urement (mass/volume)Ordered By: Casey Serrato on 12-23-2024 Calcium [Mass/Vol] 9.1 mg/dL 7.6-11.[address] [facility] Serum or plasma cholesterol in HDL measurement (mass/volume)Ordered By: Casey Serrato on 12-23-2024 Cholesterol in HDL [Mass/Vol] 42 mg/dL >40 [facility] Comment on above: National Cholesterol Education Program (NCEP) guidelines:<40 mg/dL: Low HDL-cholesterol (major risk factor for CHD)>= 60 mg/dL: High HDL-cholesterol (negative risk factor for CHD)HDL-cholesterol is affected by a number of factors, e.g. smoking, exercise, hormones, sex and age. Serum or plasma cholesterol measurement (mass/volume)Ordered By: Casey Serrato on 12-23-2024 Cholesterol [Mass/Vol] 156 mg/dL <201 [facility] Comment on above: Cholesterol level, D esirable <200 mg/dLBorderline high cholesterol 200-239 mg/dLHigh cholesterol >=240 mg/dLRecommendations of the NCEP Adult Treatment Panel for the following risk-cutoff thresholds for the [place] population. Serum or plasma urea nitroge n measurement (mass/volume)Ordered By: Casey Serrato on 12-23-2024 Urea nitrogen [Mass/Vol] 24 mg/dL High 4-19 [facility] Sodium levelOrdered By: Casey Serrato on 12-23-2024 Sodium [Moles/Vol] 139 mmol/L 133-[address] [facility] TSH DL <= 0.005 mIU/L QnOrde red By: Casey Serrato on 12-23-2024 TSH Qn 1.070 uIU/mL 0.300-4.200 [facility] Thyroid Stim Hormone (TSH)on 12-23-2024 TSH 1.070 uIU/mL Normal 0.300-4.200 [facility] Comment on above: Performed By: #### L 500.4050, L509.3001, L500.4100, L501.9520 #### [facility] [place], [address] Total proteinOrdered By: Charlotte Serrato on 12-23-2024 Protein [Mass/Vol] 7.1 g/dL 5.9-8.[address] [facility] Triglycerides measurementOrd ered By: Casey Serrato on 12-23-2024 Triglyceride [Mass/Vol] 69 mg/dL <199 [facility] Comment on above: The drugs N-Acetylcy steine and Metamizole may falsely depress this assay. Normal range: <150 mg/dLBorderline High: 150-199 mg/dLHigh: 200-499 mg/dLVery High: >500 mg/dL CNOVon 11-15-2024 CNOV Office Visit ([facility]) RUI TATUM ([id number]) 1975 M Date Time Provider Department 11/15/24 10:00 AM ESTRELLA ESQUIVEL [facility] During your visit today, we recorded the following information about you: Temperature Pulse Respiration Blood pressure 98.1 degrees 66/minute 16/minute 144/92 Weight 85 kg Estrella Esquivel APRN.COUNTY PROGRAM TECHNICIAN 11/15/2024 10:52 AM Signed [facility] Subjective HPI Rui Marilyn Tatum [...] The patient consented to the use of QVPN software for draft documentation of the visit consistent with [facility]?s Notice of Privacy Practices. History and Record [...] oral antibiotic as prescribed. Follow up with apn Diagnosis and treatment plan were discussed and questions were answered to the patient's satisfaction. Pt acknowledged understanding of concepts and follow up plan. Specific signs and symptoms that would indicate the need for higher level of care were discussed in detail warranting prompt ER evaluation. Estrella Sierra, MANAGER INVESTIGATIONS.COUNTY PROGRAM TECHNICIAN Sierra, Estrella, MANAGER INVESTIGATIONS.COUNTY PROGRAM TECHNICIAN 11/15/2024 10:39 AM Signed - Apply erythromycin [...] history of (more content not included)... Normal [facility] percentageOrdered B y: Dr. White on 10-05-2022 Chloride [Moles/Vol] 107 mmol/L 98-107 [facility] Glucose [Mass/Vol] 112 mg/dL 74-[address] [facility] Comment on above: Fasting Glucose resu lt from 100 to 125 mg/dL suggests IMPAIRED HOMEOSTASIS per A.D.A. criteria. Potassium [Moles/Vol] 4.0 mmol/L 3.5-5.1 [facility] Sodium [Moles/Vol] 141 mmol/L 136-[address] [facility] WBC (Bld) [#/Vol] 6.1 10*3/uL 4.4-11.[address] [facility] Blood erythrocytes count (nu mber/volume)Ordered By: Dr. White on 10-05-2022 RBC (Bld) [#/Vol] 4.90 10*6/uL 4.6-6.2 [facility] Blood hemoglobin measurement (mass/volume)Ordered By: Dr. White on 10-05-2022 Hemoglobin (Bld) [Mass/Vol] 15.4 g/dL 13.0-16.5 [facility] Blood platelet mean volumeOr dered By: Dr. White on 10-05-2022 Platelet mean volume (Bld) [Entitic vol] 9.9 fL 6.2-12.0 [facility] Determination of erythrocyte mean corpuscular volume (MCV)Ordered By: Dr. White on 10-05-2022 MCV (RBC) [Entitic vol] 90.6 fL 80-94 [facility] Hematocrit Auto (Bld) [Volum e fraction]Ordered By: Dr. White on 10-05-2022 Hematocrit (Bld) [Volume fraction] 44.4 % 40-54 [facility] - Chemistry and C hemistry - challengeOrdered By: Dr. White on 10-05-2022 CO2 [Moles/Vol] 26.0 mmol/L 21.0-32.0 [facility] Urea nitrogen/Creatinine [Mass ratio] 20.7 mg/mg 10-20 [facility] - Hematology and Cell countsOrdered By: Dr. White on 10-05-2022 Erythrocyte distribution width (RBC) [Entitic vol] 40.2 fL 35.1-43.9 [facility] Erythrocyte distribution width (RBC) [Ratio] 12.3 % 11.6-14.6 [facility] MCH (RBC) [Entitic mass] 31.4 pg 27.0-32.0 [facility] MCHC Auto (RBC) [Mass/Vol]Or dered By: Dr. White on 10-05-2022 MCHC (RBC) [Mass/Vol] 34.7 g/dL 32-36 [facility] No Panel InformationOrdered By: Dr. White on 10-05-2022 Estimated GFR (MDRD) Amer 73 mL/min >60 [facility] Comment on above: GFR Calc Estimated GFR (MDRD) Non-Af Amer 60 mL/min >60 [facility] Comment on above: Non- GFR Calc Platelets bldOrdered By: Dr. White on 10-05-2022 Platelets (Bld) [#/Vol] 234 10*3/uL 150-450 [facility] Serum or plasma calcium adrian urement (mass/volume)Ordered By: Dr. White on 10-05-2022 Calcium [Mass/Vol] 9.1 mg/dL 8.5-10.[address] [facility] Serum or plasma creatinine m easurement (mass/volume)Ordered By: Dr. White on 10-05-2022 Creatinine [Mass/Vol] 1.35 mg/dL 0.70-1.30 [facility] Comment on above: The validity of the calculated GFR & GFRAA in patients over 70 years has not been determined. Clinical correlation is essential. Serum or plasma urea nitroge n measurement (mass/volume)Ordered By: Dr. White on 10-05-2022 Urea nitrogen [Mass/Vol] 28 mg/dL 7-18 [facility] Thin prep Papanicolaou smear with manual screeningOrdered By: Dr. White on 10-05-2022 Thin prep Papanicolaou smear with manual screening 8 5-15 [facility] Vital Signs Date Time Vital Sign Value Performing Clinician Facility 05-04-2025 14:53-0400 Body height 175.[address] Casey Serrato MD Work Phone: 4(965)040-735700 [place] [address] 05-04-2025 14:53-0400 Body mass index (BMI) [Ratio] 27 kg/m2 Dr. Casey Serrato MD Work Phone: [facility] 05-04-2025 14:53-0400 Body weight [address] Casey Serrato MD Work Phone: 8(786)091-084[address] [place] [address] 05-04-2025 14:53-0400 Diastolic blood pressure 85 mm[Hg] Dr. Casey Serrato MD Work Phone: 8(990)648-036[address] [place] [address] 05-04-2025 14:53-0400 Heart rate 85 /min Dr. Casey Serrato MD Work Phone: 4(898)890-570549 [place] [address] 05-04-2025 14:53-0400 Respiratory rate 16 /min Dr. Casey Serrato MD Work Phone: 2(080)542-904149 [place] [address] 05-04-2025 14:53-0400 Systolic blood pressure 135 mm[Hg] Dr. Casey Serrato MD Work Phone: 3(428)476-467900 [place] [address] 04-02-2025 04:21-0400 Body temperature 97.8 [degF] Dr. Casey Serrato MD Work Phone: 4(870)329-098500 [place] [address] 04-02-2025 04:21-0400 Diastolic blood pressure 79 mm[Hg] Dr. Casey Serrato MD Work Phone: 3(162)742-024300 [place] [address] 04-02-2025 04:21-0400 Heart rate 68 /min Dr. Casey Serrato MD Work Phone: 9(068)901-015600 [place] [address] 04-02-2025 04:21-0400 Respiratory rate 18 /min Dr. Casey Serrato MD Work Phone: [facility] 04-02-2025 04:21-0400 SaO2% (BldA) [Mass fraction] 96 % Dr. Casey Serrato MD Work Phone: [facility] 04-02-2025 04:21-0400 Systolic blood pressure 105 mm[Hg] Dr. Casey Serrato MD Work Phone: 2(404)715-142800 [place] [address] 04-02-2025 03:50-0400 Inhaled oxygen flow rate 0 L/min Dr. Casey Serrato MD Work Phone: [facility] 04-02-2025 00:55-0400 Body height 175.[address] Casey Serrato MD Work Phone: [facility] 04-02-2025 00:55-0400 Body mass index (BMI) [Ratio] 27.3 kg/m2 Dr. Casey Serrato MD Work Phone: [facility] 04-02-2025 00:55-0400 Body weight [address] Casey Serrato MD Work Phone: [facility] 11-15-2024 10:02-0400 Body temperature 98.1 [degF] Estrella Sierra MANAGER INVESTIGATIONS.COUNTY PROGRAM TECHNICIAN Work Phone: [facility] 11-15-2024 10:02-0400 Body weight 85 kg Estrella Sierra MANAGER INVESTIGATIONS.COUNTY PROGRAM TECHNICIAN Work Phone: [facility] 11-15-2024 10:02-0400 Diastolic blood pressure 92 mm[Hg] Estrella Sierra MANAGER INVESTIGATIONS.COUNTY PROGRAM TECHNICIAN Work Phone: [facility] 11-15-2024 10:02-0400 Heart rate 66 /min Estrella Sierra MANAGER INVESTIGATIONS.COUNTY PROGRAM TECHNICIAN Work Phone: [facility] 11-15-2024 10:02-0400 Respiratory rate 16 /min Estrella Sierra MANAGER INVESTIGATIONS.COUNTY PROGRAM TECHNICIAN Work Phone: [facility] 11-15-2024 10:02-0400 SaO2% (BldA) [Mass fraction] 98 % Estrella Sierra MANAGER INVESTIGATIONS.COUNTY PROGRAM TECHNICIAN Work Phone: [facility] 11-15-2024 10:02-0400 Systolic blood pressure 144 mm[Hg] Estrella Sierra MANAGER INVESTIGATIONS.COUNTY PROGRAM TECHNICIAN Work Phone: [facility] 10-18-2022 13:45-0500 Body temperature 97.1 [degF] Dr. Casey Serrato Work Phone: [facility] 10-18-2022 13:45-0500 Diastolic blood pressure 85 mm[Hg] Dr. Casey Serrato Work Phone: [facility] 10-18-2022 13:45-0500 Heart rate 74 /min Dr. Casey Serrato Work Phone: [facility] 10-18-2022 13:45-0500 Respiratory rate 16 /min Dr. Casey Serrato Work Phone: [facility] 10-18-2022 13:45-0500 SaO2% (BldA) [Mass fraction] 99 % Dr. Casey Serrato Work Phone: [facility] 10-18-2022 13:45-0500 Systolic blood pressure 116 mm[Hg] Dr. Casey Serrato Work Phone: 3(131)[phone] [address] 10-18-2022 10:14-0500 Body height 175.[address] Casey Serrato Work Phone: 5(330)313-874393 [address] 10-18-2022 10:14-0500 Body mass index (BMI) [Ratio] 27 kg/m2 Dr. Casey Serrato Work Phone: [facility] 10-18-2022 10:14-0500 Body weight [address] Casey Serrato Work Phone: 6(228)159-908600 [place] [address] 09-20-2022 15:00-0500 Body mass index (BMI) [Ratio] 28.3 kg/m2 Dr. Casey Serrato Work Phone: [facility] 09-20-2022 15:00-0500 Body temperature 97.9 [degF] Dr. Casey Serrato Work Phone: [facility] 09-20-2022 15:00-0500 Body weight 84.[address] Casey Serrato Work Phone: [facility] 09-20-2022 15:00-0500 Diastolic blood pressure 83 mm[Hg] Dr. Casey Serrato Work Phone: [facility] 09-20-2022 15:00-0500 Heart rate 83 /min Dr. Casey Serrato Work Phone: [facility] 09-20-2022 15:00-0500 Respiratory rate 16 /min Dr. Casey Serrato Work Phone: [facility] 09-20-2022 15:00-0500 SaO2% (BldA) [Mass fraction] 96 % Dr. Casey Serrato Work Phone: [facility] 09-20-2022 15:00-0500 Systolic blood pressure 132 mm[Hg] Dr. Casey Serrato Work Phone: [facility] 07-12-2022 11:50-0500 Body temperature 97.39 [degF] Anne Praisler-Wood MANAGER INVESTIGATIONS.COUNTY PROGRAM TECHNICIAN Work Phone: [facility] 07-12-2022 11:50-0500 Body weight 84.19 kg Anne Praisler-Wood MANAGER INVESTIGATIONS.COUNTY PROGRAM TECHNICIAN Work Phone: [facility] 07-12-2022 11:50-0500 Diastolic blood pressure 88 mm[Hg] Anne Praisler-Wood MANAGER INVESTIGATIONS.COUNTY PROGRAM TECHNICIAN Work Phone: [facility] 07-12-2022 11:50-0500 Heart rate 85 /min Anne Praisler-Wood MANAGER INVESTIGATIONS.COUNTY PROGRAM TECHNICIAN Work Phone: [facility] 07-12-2022 11:50-0500 Respiratory rate 18 /min Anne Praisler-Wood MANAGER INVESTIGATIONS.COUNTY PROGRAM TECHNICIAN Work Phone: [facility] 07-12-2022 11:50-0500 SaO2% (BldA) [Mass fraction] 98 % Anne Praisler-Wood MANAGER INVESTIGATIONS.COUNTY PROGRAM TECHNICIAN Work Phone: [facility] 07-12-2022 11:50-0500 Systolic blood pressure 124 mm[Hg] Anne Praisler-Wood MANAGER INVESTIGATIONS.COUNTY PROGRAM TECHNICIAN Work Phone: [facility] Encounters Encounter Date Encounter Type Care Provider Facility Start: 08-20-2025 ambulatory Casey Serrato Facility:[facility] Start: 06-28-2025 ambulatory Víctor Mac Facility:[facility] Start: 05-04-2025 End: 05-04-[address] Víctor Mac MD -[facility] Work Phone: Start: 05-04-2025 End: 05-04-[address] Casey Serrato MD Work Phone: -[facility] Start: 04-02-2025 End: 04-02-2025 Emergency department patient visit Dr. Casey Serrato MD Work Phone: -Emergency Department Work Phone: Start: 12-23-2024 End: 12-23-[address] Casey Serrato MD Work Phone: [facility] Work Phone: Start: 12-23-2024 End: 12-23-[address] Casey Serrato MD -Laboratory Work Phone: Start: 12-23-2024 End: 12-23-2024 ambulatory Casey Serrato Facility:[facility] Start: 11-15-2024 End: 11-15-2024 ambulatory CASEY SERRATO Facility:[facility] Start: 11-15-2024 End: 11-15-2024 Patient encounter procedure Estrella Esquivel VIDYA Work Phone: [facility] Comment on above: Eye problem (Primary Dx) Start: 10-18-2022 Non-patient / Non-visit Dr. Jeremiah Serrato Work Phone: [facility] Start: 10-18-2022 End: 10-18-2022 Admission to same day surgery center Dr. Casey Serrato Work Phone: [facility] Start: 10-18-2022 End: 10-18-[address] Casey Serrato Work Phone: [facility] Work Phone: Start: 10-05-2022 End: 10-05-2022 Non-patient / Non-visit Dr. Casey Serrato Work Phone: [facility] Start: 09-20-2022 End: 09-20-[address] Casey Serrato Work Phone: [facility] Start: 07-12-2022 End: 07-12-2022 Patient encounter procedure Anne Joseph APRN.EDWINA Work Phone: [facility] Comment on above: Bacterial sinusitis [...] DTaP,Tdap,Td Vaccine (3 - Td or Tdap) [facility] Start: 04-02-2025 [facility] Start: 04-12-2024 Covid-19 Vaccine ( season) Covid-19 Vaccine ( season) [facility] Start: 04-12-2024 Influenza vaccination Influenza Vaccine (#1) [facility] Start: 02-23-2023 Urine microalbumin profile DTAP,TDAP,TD (2 - Td or Tdap) [facility] Start: 10-18-2022 Patient discharge [facility] Start: 04-12-2022 Influenza vaccination INFLUENZA (#1) [facility] Start: 09-23-2021 COVID-19 VACCINE (4 - Booster for Moderna series) COVID-19 VACCINE (4 - Booster for Moderna series) [facility] Start: 08-12-2021 DEPRESSION ASSESSMENT DEPRESSION ASSESSMENT [facility] Start: 2020 COLOGUARD (FIT-DNA) COLOGUARD (FIT-DNA) [facility] Start: 2020 Colonoscopy COLONOSCOPY [facility] Start: 2020 COLORECTAL CANCER SCREENING COLORECTAL CANCER SCREENING [facility] Start: [address] COLONOGRAPHY [facility] Start: 2020 DIABETES SCREEN DIABETES SCREEN [facility] Start: 2020 Diabetes Screening Diabetes Screening [facility] Start: 2020 FECAL OCCULT BLOOD FECAL OCCULT BLOOD [facility] Start: 2020 Screening for malignant neoplasm of colon [facility] Start: 2020 SIGMOIDOSCOPY SIGMOIDOSCOPY [facility] Start: 2010 Lipid panel Lipid Screening [facility] Start: 2010 LIPID SCREEN LIPID SCREEN [facility] Start: 1994 Hepatitis B Vaccine (1 of 3 - 19+ 3-dose series) Hepatitis B Vaccine (1 of 3 - 19+ 3-dose series) [facility] Start: 1993 Anxiety Screening Anxiety Screening [facility] Start: 1993 Depression Screening Depression Screening [facility] Start: 1993 HEPATITIS C SCREENING HEPATITIS C SCREENING [facility] Start: 1993 Hepatitis C screening Hepatitis C Screening [facility] Start: 1993 HIV SCREENING HIV SCREENING [facility] Start: 1993 HIV screening HIV Screening [facility] Start: 1975 HEPATITIS B (1 of 3 - 3-dose series) HEPATITIS B (1 of 3 - 3-dose series) [facility] Patient Education [facility] Work Phone: Patient referral [facility] Work Phone: [facility] Immunizations Immunization Date Immunization Notes Care Provider Zhang tavares 05-20-2020 influenza virus vaccine, unspecified formulation Estrella Esquivel APRN.COUNTY PROGRAM TECHNICIAN Work Phone: [facility] 09-16-2019 influenza, injectabl e, quadrivalent, preservative free Dr. Casey Serrato MD Work Phone: [facility] 09-16-2019 influenza, seasonal, injectable Dr. Casey Serrato Work Phone: [facility] 02-23-2013 tetanus toxoid, redu chase diphtheria toxoid, and acellular pertussis vaccine, adsorbed Anne Joseph APRN.CNP Work Phone: [facility] Payers Date Payer Category Payer Self-pay [id number] 2022 Private Health Insurance [id number] 2019 Private Health Insurance [id number] 2012 Unknown [facility] [id number] b Unknown [id number] Unknown [id number] Unknown [id number] Unknown [id number] Unknown [id number] Social History Date Type Detail Facility Start: 07-12-2022 End: 04-02-2025 Tobacco smoking status NHIS Never smoked tobacco [facility] Start: 07-12-2022 Tobacco use and exposure Smokeless tobacco non-user [facility] Start: 07-12-2022 End: 11-15-2024 Alcohol intake Lifetime non-drinker (finding) [facility] Start: 1975 Sex Assigned At Not on file [facility] Start: 07-02-2022 End: 07-12-2022 Exposure to SARS-CoV-2 (event) Not sure [facility] Work Phone: Start: 09-20-2022 Tobacco smoking status NHIS Unknown if ever smoked [facility] Start: 03-30-2021 None [facility] Start: 09-16-2019 Spouse/ Signif icant Other [facility] Start: 03-30-2021 Non-smoker [facility] Start: 1975 Sex Assigned At Male [facility] Start: 07-20-2020 End: 11-15-2024 History of Social function [facility] Start: 07-20-2020 End: 11-15-2024 Tobacco use panel [facility] National Score (1-100), lower number is lower risk Not on file [facility] Medical Equipment Procedure Code Equipment Code Equipment Origin al Text Equipment Identifier Dates MESH,PRO CARBURIZING FURNACE OPERATOR [id number] FDA Start: 10-18-2022 MESH,PRO CARBURIZING FURNACE OPERATOR [id number] FDA Start: 10-18-2022 MESH,PRO CARBURIZING FURNACE OPERATOR [id number] FDA Start: 10-18-2022 Goals Date Patient Goal Desired Activity /State Functional Status Date Assessment Result Facility 08-21-2014 Are you deaf, or do you have serious difficulty hearing No 08/21/2014 9:11 AM Ana Wang LPN No [facility] 08-21-2014 Are you blind, or do you have serious difficulty seeing, even when wearing glasses No 08/21/2014 9:11 AM Ana Wang LPN No [facility] 08-21-2014 Do you have serious difficulty walking or climbing stairs No 08/21/2014 9:11 AM Ana Wang LPN No [facility] 08-21-2014 Do you have difficul ty dressing or bathing No 08/21/2014 9:11 AM Ana Wang LPN No [facility] 08-21-2014 Because of a physica l, mental, or emotional condition, do you have difficulty doing errands alone such as visiting a physician's office or shopping No 08/21/2014 9:11 AM Ana Wang LPN No [facility] Mental Status Date Assessment Result Facility 04-02-2025 Cognitive function Drowsy [facility] Work Phone: 04-02-2025 Cognitive function Arousable To Voice/Nam e [facility] Work Phone: 10-18-2022 Cognitive function Level Of Cons ciousness Awake;Drowsy [facility] Work Phone: 10-18-2022 Cognitive function Voice/Name [facility] Work Phone: 08-21-2014 Because of a physica l, mental, or emotional condition, do you have serious difficulty concentrating, remembering, or making decisions No 08/21/2014 9:11 AM Ana Wang LPN No [facility] Clinical Notes 07-12-2022 to 05-04-2025 Note Date & Type Note Facility 05-04-2025 Progress note [facility] 05-04-2025 Progress note Note Date/Time May 04, 2025 3:18pm [facility] [address] [place] [address] OFFICE VISIT Date of Service: 05/04/25 MR#: [id number] Acct: [id number] Name: RUI TATUM Rep #: [id number] : 1975 Provider: Dr. Hermilo Mac MD Age/Sex: 49/M Location: [facility] [place] Status: Signed HPI HPI History of Present [...] Monitor Intake Visit Reasons: 1 Y FU Cyber Intel Planner Required: No Accompanied by: Self Is patient [...] test History of echocardiogram H/O transesophageal echocardiography (TSEVEN) for monitoring Cardiology follow-up encounter History of [...] (1) Paroxysmal a-fib: Status: Chronic Plan: His [id number] score is 1 (hypertension). He appears to [...] applicable) CC: Dr. Casey Serrato MD ~ [employer] Work Phone: 1(500) 817-321008-22-2025 Discharge summary [facility] Medical Records Department [address] [place] [address] Emergency Department Summary 04/02/25 MR#: [id number] Acct: [id number] Name: RUI TATUM Rep #:[id number] : 1975 49 From: Delroy Muhammad DO PCP: Dr. Casey Serrato MD Status:REG E R Location: ED [facility] History of Present Illness Chief Complaint: [...] so and therefore comes in for evaluation. [facility] Medical History Anxiety Alcohol use Migraine headache [...] (Updated 03/31/24 @ 15:16 by Raymond Bah COLOR DEVELOPER, COLOR DEVELOPER-C) Father Myocardial infarction CAD (coronary artery disease) early 50s Stented coronary artery Hypertension Mother CAD (coronary artery disease) early 50s S/P CABG x 3 Atrial fibrillation Diabetes Surgical History history of skin graft as a child history of finger reattached History of appendectomy History of cardioversion (09/16/19) S/P transesophageal echocardiogram (STEVEN) (09/16/19) Social History Smoking Status: Never smoker alcohol [...] Eliquis and he can follow-up with the telemarketing manager and hope that there is spontaneous cardioversion [...] 46.6 L Lymph % (Auto) 41.3 H Coryell % (Auto) 9.5 Eos % (Auto) 1.2 [...] directed by your doctor. Follow- upwith the telemarketing manager for repeat evaluation and return to the ER should you haveany further concerns Print Language: [place] Disposition Disposition: Home, Self Care What to do if you have Problems For any increased pain, shortness of breath, bleeding, nausea or vomiting, chestpain, or any unexpected problems, contact your Primary Care Provider. Call [facility] ([phone]) or report tothe closest Emergency Room. Call 911 if necessary. 04/02/25 0832 Cosigner Signature (if applicable): CC: Dr. Casey Serrato MD ~ Signed [facility]04-06-2025 Instructions* Patient Instructions* Estrella Esquviel APRN.CNP - 11/15/2024 10:39 AM EDT - Apply erythromycin ointment along the lash line of your left eye twice a day for 7 days. - If you do not notice any improvement within 48 hours or if the condition worsens, start the oral antibiotic as prescribed. documented in this encounterUniversity Hospitals [facility]04-06-2025 NoteHNO ID: [id number] Author: ESTRELLA ESQUIVEL APRN.CNP Service: ? Author [...] draft documentation of the visit consistent with [facility]?s Notice of Privacy Practices. History and Record [...] oral antibiotic as prescribed. Follow up with apn Diagnosis and treatment plan were discussed and questions were answered to the patient's satisfaction. Pt acknowledged understanding of concepts and follow up plan. Specific signs and symptoms that would indicate the need for higher level of care were discussed in detail warranting prompt ER evaluation. [facility] Esquivel [facility] History of Present illness Narrative* Estrella Esquivel APRN.COUNTY PROGRAM TECHNICIAN - 11/15/2024 10:11 AM EDT Images from [...] The patient consented to the use of QVPN software for draft documentation of the visit consistent with [facility] s Notice of Privacy Practices. History and [...] oral antibiotic as prescribed. Follow up with apn Diagnosis and treatment plan were discussed and questions were answered to the patient's satisfaction. Pt acknowledged understanding of concepts and follow up plan. Specific signs and symptoms that would indicate the need for higher level of care were discussed indetail warranting prompt ER evaluation. Estrella Esquivel APRN.COUNTY PROGRAM TECHNICIAN documented in this encounterUniversity Hospitals [facility] Center03-09-[address] Sharif [facility] October 18, 2022 11:54am Note Date/Time October 18, 2022 11:5 3am [facility] Medical Records Department [address] [place] [address] Instructions for Home/Discharge Instructions 10/18/22 1152 MR#: [id number] Acct: [id number] Name: RUI TATUM Rep #:[id number] : 1975 47 From: rTe palmer MD PCP: Dr. Casey Serrato MD [...] to schedule 2 week follow up appointment. [phone] Test Results: Test results from this visit [...] CC: Dr. Casey Serrato MD ~ Signed [facility] Work Phone: 1(973) 965-954003-09-2023 History and physical note Author Dr. Sharif [facility] October 18, 2022 10:28am Note Date/Time October 18, 2022 10:2 8am [facility] Medical Records Department [address] [place] [address] History & Physical Exam 10/18/22 1027 MR#: [id number] Acct: [id number] Name: RUI TATUM Rep #:[id number] : 1975 47 From: Ter palmer MD PCP: Dr. Casey Serrato MD Status:REG S [place] Location: [place] [address] History and Physical Date of Admission: 10/18/22 Intake Vital Signs ? 09/20/2314:00 Height 5 ft 8 in Weight: 186 lb BMI 28.3 BP 132/83 H Blood Pressure Location Lt brachial Position Sitting Respiration 16 Pulse 83 Pulse Source Monitor Temp 97.9 F Temp Source Temporal Pulse Oximetry (%) 96 Oxygen Delivery Method room air Intake Visit Reasons:?Inguinal hernia Chief Complaint: L inguinal hernia Cyber [employer] Planner Required: No Is patient in pain?: No [...] General: cooperative Orientation: alert and oriented x3 [facility] Head: normal to inspection Neck Neck: normal [...] on the right. Tre Sharif MD Pager: [facility] [address] [place] [address], [address] [place] [address] Office: I have examined the patient and the H&P has been reviewed. There are no clinicalchanges since date of exam. 10/18/22 1028 <Electronically signed by Tre Sharif MD> Cosigner Signature (if applicable): CC: Dr. Tre Sharif MD; Dr. Casey Serrato MD~ Signed [facility] Work Phone: 1(148) 171-465603-09-2023 Procedure [facility] 07-12-2022 History of Present illness Narrative* Anne Joseph APRN.COUNTY PROGRAM TECHNICIAN - 07/12/2022 12:10 PM EST Subjective Cough [...] illness Anne Joseph APRN.CNP documented in this encounterUniversity Hospitals [facility] Center12-01-2022 Instructions* Patient Instructions* Anne Joseph APRN.CNP - [...] Sinusitis Patient Education What is Sinusitis? Sinusitis [pjfo-row-cwca-tis] is inflammation of the sinuses or swelling [...] help. You may be instructed to take jozr-rsd-hdexsgf medications for symptoms. including fever reducers acetaminophen or ibuprofen, nasal saline spray, cough and cold preparations and decongestants as prescribed by the physician, nurse practitioner or physician baking assistant. Self-Care and Prevention: Rest Fluids for hydration Good hand washing Humidifier Avoid smoking and exposure to second hand smoke Avoid sick contacts documented in this encounterComo ClinicDischar summary Author [facility] Note Date/Time April 02, 2025 3: 59am [facility] Medical Records Department [address] [facility] [place] [address] Emergency Department Summary 04/02/25 MR#: [id number] Acct: [id number] Name: RUI TATUM Rep #:[id number] : 1975 49 From: Delroy Muhammad DO [...] so and therefore comes in for evaluation. [facility] Medical History Anxiety Alcohol use Migraine headache [...] (Updated 03/31/24 @ 15:16 by Raymond Bah COLOR DEVELOPER, COLOR DEVELOPER-C) Father Myocardial infarction CAD (coronary artery disease) early 50s Stented coronary artery Hypertension Mother CAD (coronary artery disease) early 50s S/P CABG x 3 Atrial fibrillation Diabetes Surgical History history of skin graft as a child history of finger reattached History of appendectomy History of cardioversion (09/16/19) S/P transesophageal echocardiogram (STEVEN) (09/16/19) Social History Smoking Status: Never smoker alcohol [...] Eliquis and he can follow-up with the telemarketing manager and hope that there is spontaneous cardioversion [...] 46.6 L Lymph % (Auto) 41.3 H Coryell % (Auto) 9.5 Eos % (Auto) 1.2 [...] as directed by your doctor. Follow-upwith the telemarketing manager for repeat evaluation and return to the ER should you haveany further concerns Print Language: [place] Disposition Disposition: Home, Self Care What to do if you have Problems For any increased pain, shortness of breath, bleeding, nausea or vomiting, chestpain, or any unexpected problems, contact your Primary Care Provider. Call [facility] ([phone]) or report to the closest Emergency Room. Call 911 if necessary. 04/02/25 0359 <Electronically signed by Delroy Muhammad DO> Cosigner Signature (if applicable): CC: Dr. Casey Serrato MD ~ Signed [facility] Work Phone: Evaluation note* Diagnosis Bacterial sinusitis- Primary Unspecified sinusitis (chronic) documented in this encounter [facility] note* Diagnosis Onset Date Resolution Status Left inguinal hernia acute [facility] Work Phone: Evaluation note* Diagnosis Eye problem- Primary Other eye problems documented in this encounter [facility] noteNo assessment information availableWAshtabula [facility] Medical Center Work Phone: Evaluation note* Diagnosis Onset Date Resolution Status Admit Date Atrial fibrillation with RVR acute May 04, 2025 2:45pm Essential hypertension chronic Se ptember 2024 2:45pm Paroxysmal a-fib chronic Septembe r 2024 2:45pm [facility] Work Phone: Hospital Discharge instructionsAdditional Instructions You are now back in normal sinus rhythm following synchronized cardioversion. Please continue all your home medications as directed by your doctor. Follow-up with the telemarketing manager for repeat evaluation and return to the ER should you have any further concernsWAshtabula County Medical Center Work Phone: Reason for referral (narrative)No reason for referral information availableWAshtabula County Medical Center Work Phone: Chief Complaint and Reason for [...] Will No September 16 2:14am Power of Gear Cutting Machine Set Up Operator No September 16, 2019 2:14am Advance Directive Response Recorded Date/ Time Do you have a Healthcare Power of Gear Cutting Machine Set Up Operator? No April 02, 2025 1:06am Advance Directive Response Recorded Date/ Time Living Will No October 02, 023 12:23pm Do you have a Healthcare Power of Gear Cutting Machine Set Up Operator? No October 02, 2022 12:23pm Do you have a Healthcare Power of Gear Cutting Machine Set Up Operator? No April 02, 2025 1:06am Summary Purpose Additional Source Comments Source Comments (unrecognize d section and content) In the event this informatio n is protected by the Federal Confidentiality of Alcohol and Drug Abuse Patient Records regulations: The Federal rules restrict any use of the information to criminally investigate or prosecute any alcohol or drug abuse patient.[facility] CenterIn the event this information is protected by the Federal Confidentiality of Alcohol and Drug Abuse Patient Records regulations: The Federal rules restrict any use of the information to criminally investigate or prosecute any alcohol or drug abuse patient.[facility] Reason for Visit (unrecogniz ed section and content) Reason Comments Cough Pt reported nasal co ngestion, Smith, x1 wk. Reason Comments Eye Problem Left eyelid redness, swelling, sore and itchy x 2 weeks Care Teams (unrecognized sec tion and content) Aircraft Stress Analyst Relationship Specialty Start Date End Date Casey Serrato MD [address] [facility] [address] [place] [address] PCP - General Family Medicine 07/12/22 Team [...] MD Attending Provider, Referr ing Provider Active Aircraft Stress Analyst Relationship Specialty Start Date End Date Casey Serrato MD [address] [facility] [address] [place] [address] PCP - General Family Medicine 07/12/22 Team [...] section and content) DATE CREATED AUTHOR 11/16/2024 [facility] DATE CREATED AUTHOR AUTHOR'S ORGANIZ ATION 06/19/2025 [facility] Goals (unrecognized section and content) Goals [...] BE BASED ON THE PRIMARY CLINICAL RECORDS. [facility]. provides no warranty or guarantee of the accuracy or completeness of information in this document.
[2025-07-07 12:56] LABS: Anion Gap 11 (5-15); BUN 20 mg/dL (4-19); BUN/Creat Ratio 15.9 RATIO (10-20); Calcium,Total 9.2 mg/dL (7.6-11.0); Carbon Dioxide 23.1 mmol/L (21.0-32.0); Chloride 104 mmol/L (98-108); Cholesterol 150 mg/dL (<=200); Glucose 100 mg/dL (70-99); Low Density Lipoprotein Calc. 98 mg/dL; Potassium 4.3 mmol/L (3.3-5.1); Triglycerides 66 mg/dL; Very Low Density Lipoprotein 13 mg/dL (5-40); cholesterol:hdl ratio screen 3.83
== END | disposition home or self-care (01) ==
LOC: MTLAB 07:12
PROVIDERS: PCP Family Medicine; Referring Provider Family Medicine; Visit Provider Family Medicine
DX: I10 Essential (primary) hypertension (principal)
CPT/HCPCS: 36415; 80048; 80061